=== PATIENT | male | born 1940 | race Asian ===

== ENCOUNTER 2017-02-25 20:10 | Emergency (ER) | payer MEDICARE, BC, OTHER ==
[2017-02-25] MEDS ORDERED: SODIUM CHLORIDE 0.9% 1,000 ML IV ONE (20:32)
--- NOTE | 2017-02-25 20:37 | ED Physician Documentation ---
PD HPI ABD PAIN - Stated complaint Stated Complaint: SIDE PX - Chief complaint Chief Complaint: Abd Pain - History obtained from History obtained from: Patient - History of Present Illness Timing - onset: Yesterday Timing - details: Gradual onset Quality: Dull Location: RLQ Associated symptoms: Constipation. No: Fever, Nausea, Vomiting, Diarrhea, Dysuria Similar symptoms before: Has not had sx before - Additional information Additional information: The patient is a 76-year-old male who presents with right-sided abdominal pain that started yesterday and has persisted today. He denies fever, nausea, vomiting, or dysuria. He has chronic constipation for which he takes senna and Dulcolax. His last bowel movement was yesterday. He ate breakfast and lunch today. He denies history of similar symptoms in the past. His past medical history is significant for prostate cancer that was diagnosed earlier this year, and for which he has undergone radiation therapy 2. The last time was about 2 weeks ago. He is also status post cholecystectomy. Review of Systems Constitutional: denies: Fever Ears: denies: Tinnitus/ringing Nose: denies: Congestion Throat: denies: Sore throat Cardiac: denies: Chest pain / pressure Respiratory: denies: Dyspnea, Cough GI: reports: Abdominal Pain, Constipation (Chronically). denies: Nausea, Vomiting, Diarrhea : denies: Dysuria Skin: denies: Rash Musculoskeletal: denies: Back pain, Extremity swelling Neurologic: denies: Focal weakness, Numbness, Headache PD PAST MEDICAL HISTORY - Past Medical History Cardiovascular: Hypertension, Atrial fibrillation Endocrine/Autoimmune: Type 2 diabetes GI: Chronic constipation Other Past Medical History: Prostate cancer, status post radiation therapy. - Past Surgical History Past Surgical History: Yes General: Cholecystectomy - Present Medications Home Medications: Ambulatory Orders Medication Instructions Recorded Confirmed Aspirin 81 mg PO DAILY 03/27/14 02/25/17 Atorvastatin Calcium [Lipitor] 20 mg PO DAILY 03/27/14 02/25/17 Lisinopril 20 mg PO DAILY 03/27/14 02/25/17 Omeprazole [PriLOSEC] 40 mg PO DAILY 03/27/14 02/25/17 Albuterol Sulf [Ventolin Hfa 2 puffs INH PRN PRN 02/25/17 02/25/17 Inhaler] Bisacodyl [Dulcolax] 5 mg PO DAILY 02/25/17 02/25/17 HYDROcod/ACETAM 5/325 [[place] 5/325] 1 - 2 ea PO Q6H PRN #15 tablet 02/25/17 Insulin Aspart (Vial) [NovoLOG 52 unit SUBQ BID 02/25/17 02/25/17 (VIAL FOR ED USE)] Senna [Senokot] 8.6 mg PO ONCE 02/25/17 02/25/17 - Allergies Allergies/Adverse Reactions: Allergies Allergy/AdvReac Type Severity Reaction Status Date / Time metformin AdvReac Cramps Verified 03/27/14 17:16 morphine AdvReac Nausea Verified 03/27/14 17:17 - Living Situation Living Situation: reports: With family Living Arrangement: reports: At home - Social History Does the pt smoke?: No Smoking Status: Never smoker Does the pt drink ETOH?: No - Immunizations Immunizations are current?: No Results - Vitals Vitals: Vital Signs - 24 hr 02/25/17 23:32 Heart Rate 81 Respiratory 18 Rate Blood Pressure 123/60 O2 Saturation 100 Oxygen O2 Source Room air - Labs Labs: Laboratory Tests 02/25/17 02/25/17 02/25/17 20:35 20:35 22:15 WBC 9.9 RBC 4.17 L Hgb 12.8 L Hct 36.9 L MCV 88.5 MCH 30.8 MCHC 34.8 RDW 13.3 Plt Count 242 MPV 7.0 L Neut # 7.3 H Lymph # 1.2 L Simpson # 1.2 H Eos # 0.2 Baso # 0.0 Absolute Nucleated RBC 0.00 Nucleated RBC % 0.0 Sodium 135 Potassium 4.2 Chloride 102 Carbon Dioxide 23 Anion Gap 10.0 BUN 35 H Creatinine 1.2 Estimated GFR (MDRD) 59 L Glucose 214 H Calcium 9.0 Total Bilirubin 0.8 AST 33 ALT 31 Alkaline Phosphatase 105 Total Protein 7.2 Albumin 4.0 Globulin 3.2 Albumin/Globulin Ratio 1.3 Lipase 31 Urine Color YELLOW Urine Clarity CLEAR Urine pH 5.5 Ur Specific [place] 1.020 Urine Protein NEGATIVE Urine Glucose (UA) 100 H Urine Ketones NEGATIVE Urine Occult Blood NEGATIVE Urine Nitrite NEGATIVE Urine Bilirubin NEGATIVE Urine Urobilinogen 0.2 (NORMAL) Ur Leukocyte Esterase NEGATIVE Ur Microscopic Review NOT INDICATED Urine Culture Comments NOT INDICATED - Rads (name of study) CT abd/pelvis w/IV contrast Radiology: Prelim report reviewed, EMP read contemporaneously, See rad report ( 1. 1. Suspect rectal prolapse, otherwise unremarkable bowel, with normal appendix noted. 2. Cholecystectomy. 3. Radioactive prostate seeds. 4. 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 He has chronic constipation, and I suspect his pain is related to constipation , and may be exacerbated by recent prostate radiation therapy. CT scan of his abdomen and pelvis reveals a normal appendix, and no evidence of bowel obstruction. His urinalysis is negative, and his CBC reveals a normal white count. Treatment in the emergency department included administration of normal saline 685 mL IV, hydromorphone 1 mg IV, and Reglan 10 mg IV. He is being discharged with prescription for Vicodin, 15 tablets. I discussed with him and his daughter the results of the workup, symptomatic treatment and outpatient follow- up, as well as potentially worrisome signs or symptoms that should prompt reevaluation in the emergency department. Departure - Departure Disposition: 01 Home, Self Care Clinical Impression: Prostate CA Abdominal pain Qualifiers: Abdominal location: right lower quadrant Qualified Code(s): R10.31 - Right lower quadrant pain Condition: Stable Instructions: ED Abdominal Pain Unkn Cause Male Follow-Up: [facility] [Provider Group] Prescriptions: HYDROcod/ACETAM 5/325 [[place] 5/325] 1 - 2 ea PO Q6H PRN #15 tablet PRN Reason: Pain Comments: Drink plenty of fluids. Eat fruits such as prunes, peaches, or apricots. You can use Vicodin as prescribed as needed for pain. Follow up with your primary physician tomorrow as scheduled. Return to the emergency department if you develop increasing abdominal pain, fever, vomiting, or otherwise worsening symptoms. Discharge Date/Time: 02/25/17 23:35
[2017-02-25 20:44] LABS: BASOPHILS % (AUTO) 0.2 %; EOSINOPHILS # (AUTO) 0.2 10^3/uL (0.0-0.7); EOSINOPHILS % (AUTO) 1.6 %; HCT - HEMATOCRIT 36.9 % (42.0-52.0); HGB - HEMOGLOBIN 12.8 g/dL (14.0-18.0); LYMPHOCYTES # (AUTO) 1.2 10^3/uL (1.5-3.5); LYMPHOCYTES % (AUTO) 11.8 %; MEAN CORPUSCULAR HEMOGLOBIN 30.8 pg (27.0-31.0); MEAN CORPUSCULAR HGB CONC 34.8 g/dL (32.0-36.0); MEAN CORPUSCULAR VOLUME 88.5 fL (80.0-94.0); MONOCYTES # (AUTO) 1.2 10^3/uL (0.0-1.0); MONOCYTES % (AUTO) 12.6 %; NEUTROPHILS # (AUTO) 7.3 10^3/uL (1.5-6.6); NEUTROPHILS % (AUTO) 73.8 %; RED BLOOD COUNT 4.17 10^6/uL (4.70-6.10); RED CELL DISTRIBUTION WIDTH 13.3 % (12.0-15.0); UNCORRECTED WHITE BLOOD COUNT 9.9 x10^3/uL; WHITE BLOOD COUNT 9.9 x10^3/uL (4.8-10.8)
[2017-02-25] MEDS ORDERED: HYDROmorphone 1 MG/ML SYRINGE ONE (20:48)
[2017-02-25 20:56] LABS: ALBUMIN/GLOBULIN RATIO 1.3 (1.0-2.2); BILIRUBIN,TOTAL 0.8 mg/dL (0.2-1.0); CREATININE 1.2 mg/dL (0.6-1.2); POTASSIUM 4.2 mmol/L (3.5-5.0); TOTAL PROTEIN 7.2 g/dL (6.7-8.2)
[2017-02-25] MEDS ORDERED: HYDROmorphone 0.5 MG/0.5 ML SYRINGE IVP SCH (21:00)
[2017-02-25] MEDS ORDERED: IOPAMIDOL-300 100 ML VIAL ONE (21:05)
[2017-02-25] MEDS ORDERED: IOPAMIDOL-300 100 ML VIAL IVP ONE (21:21)
--- NOTE | 2017-02-25 22:06 | CT Preliminary Report ---
Exam: CT ABDOMEN/PELVIS W/ IMPRESSION: 1. Suspect rectal prolapse, otherwise unremarkable bowel, with normal appendix noted. 2. Cholecystectomy. 3. Radioactive prostate seeds. 4. Chronic pars defects at L5, with degenerative disk disease, L3-L5. [facility] SITE ID: [id number]
--- NOTE | 2017-02-25 22:09 | CT Report ---
EXAM: CT ABDOMEN AND PELVIS EXAM DATE: 02/25/2017 09:36 PM. CLINICAL HISTORY: Right lower quadrant pain. COMPARISONS: None. TECHNIQUE: Routine helical CT imaging was performed through the abdomen and pelvis. IV contrast: 100 cc of Isovue-300. Enteric contrast: No. Reconstructions: Coronal and sagittal. In accordance with CT protocol optimization, one or more of the following dose reduction techniques w ere utilized for this exam: automated exposure control, adjustment of mA and/or KV based on patient s ize, or use of iterative reconstructive technique. FINDINGS: Lung Bases: Unremarkable. Liver: Normal. No masses. Gallbladder/Bile Ducts: Cholecystectomy. No dilated ducts. Spleen: Normal. Pancreas: Normal. Adrenal Glands: Normal. Kidneys: Anterior 1.9 cm cyst on the right, otherwise unremarkable. Peritoneal Cavity/Bowel: Normal. No free fluid, free air or adenopathy. No masses or acute inflammato ry process. The appendix is well visualized and normal. Pelvic Organs: Prostatic densities, presumably radioactive seeds. Unremarkable bladder. Suspect recta l prolapse. Vasculature: No aneurysms or other significant abnormality. Bones: Degenerative disk disease at L3-L4, L4-L5, and L5-S1. Chronic pars defects at L5. Other: None. IMPRESSION: 1. Suspect rectal prolapse, otherwise unremarkable bowel, with normal appendix noted. 2. Cholecystectomy. 3. Radioactive prostate seeds. 4. Chronic pars defects at L5, with degenerative disk disease, L3-L5. [facility] Referring Provider Line: [phone] SITE ID: [id number]
[2017-02-25] MEDS ORDERED: MINERAL OIL ENEMA 133 ML BOTTLE RC STA (22:22)
[2017-02-25 22:24] LABS: BILIRUBIN,URINE NEGATIVE (NEGATIVE); PH,URINE 5.5 PH (5.0-7.5)
[2017-02-25 22:26] LABS: UA CHARGE (STRIP ONLY) YES; UR CULTURE IF IND NOT INDICATED
[2017-02-25] MEDS ORDERED: METOCLOPRAMIDE 10 MG/2 ML VIAL IVP STA (23:19)
[2017-02-25] MEDS ORDERED: HYDROcod/ACET 5/325 Prepack 6 PO STA (23:23)
[2017-02-25] MEDS ORDERED: METOCLOPRAMIDE 10 MG/2 ML VIAL ONE (23:27)
[2017-02-25] MEDS ORDERED: HYDROcod/ACET 5/325 Prepack 6 PO ONE (23:32)
[2017-02-25 23:33] VITALS: BP 123/60
== END 2017-02-25 23:35 | disposition home or self-care (01) ==
LOC: ED 20:10
DX: C61 Malignant neoplasm of prostate (principal); R10.31 Right lower quadrant pain; I10 Essential (primary) hypertension; E11.9 Type 2 diabetes mellitus without complications; K59.09 Other constipation; Z92.3 Personal history of irradiation; Z79.82 Long term (current) use of aspirin; Z79.4 Long term (current) use of insulin
CPT/HCPCS: 36415; 74177; 80053; 81003; 83690; 85025; 96361; 96374; 96375; 99284; A9270; J1170; Q9967; 81001; 87086

== ENCOUNTER 2019-11-26 18:33 | Emergency (ER) | payer MEDICARE, BC, OTHER ==
--- NOTE | 2019-11-26 19:04 | ED Physician Documentation ---
History of Present Illness - Stated complaint Stated Complaint: EYE SWELLING, ITCHINESS - Chief complaint Chief Complaint: General - History obtained from History obtained from: Patient (Patient is a 78-year-old male presents with a chief complaint of left eye irritation after he colored his hair. He denies any visual loss or facial swelling or mouth swelling or difficulty breathing he did not try any treatment prior to arrival.) Review of Systems Constitutional: reports: Reviewed and negative Eyes: reports: Irritation Ears: reports: Reviewed and negative Nose: reports: Reviewed and negative Throat: reports: Reviewed and negative Cardiac: reports: Reviewed and negative Respiratory: reports: Reviewed and negative GI: reports: Reviewed and negative : reports: Reviewed and negative Skin: reports: Reviewed and negative Musculoskeletal: reports: Reviewed and negative Neurologic: reports: Reviewed and negative Psychiatric: reports: Reviewed and negative Endocrine: reports: Reviewed and negative Immunocompromised: reports: Reviewed and negative PD PAST MEDICAL HISTORY - Past Medical History Cardiovascular: Hypertension, Atrial fibrillation Respiratory: Asthma Endocrine/Autoimmune: Type 2 diabetes GI: Chronic constipation : Other HEENT: None Psych: None Musculoskeletal: Osteoarthritis Derm: None - Past Surgical History Past Surgical History: Yes General: Cholecystectomy - Present Medications Home Medications: Ambulatory Orders Medication Instructions Recorded Confirmed Aspirin 81 mg PO DAILY 03/27/14 02/25/17 Atorvastatin Calcium [Lipitor] 20 mg PO DAILY 03/27/14 02/25/17 Lisinopril 20 mg PO DAILY 03/27/14 02/25/17 Omeprazole [PriLOSEC] 40 mg PO DAILY 03/27/14 02/25/17 Albuterol Sulf [Ventolin Hfa 2 puffs INH PRN PRN 02/25/17 02/25/17 Inhaler] HYDROcod/ACETAM 5/325 [[place] 5/325] 1 - 2 ea PO Q6H PRN #15 tablet 02/25/17 Insulin Aspart (Vial) [NovoLOG 52 unit SUBQ BID 02/25/17 02/25/17 (VIAL FOR ED USE)] Senna [Senokot] 8.6 mg PO ONCE 02/25/17 02/25/17 bisacodyL [Dulcolax] 5 mg PO DAILY 02/25/17 02/25/17 Erythromycin Base [Erythromycin 1 gm OP BID 7 Days #1 oint...g. 11/26/19 Ophthalmic Ointment] - Allergies Allergies/Adverse Reactions: Allergies Allergy/AdvReac Type Severity Reaction Status Date / Time metformin AdvReac Cramps Verified 11/26/19 18:52 morphine AdvReac Nausea Verified 11/26/19 18:52 - Social History Does the pt smoke?: No Smoking Status: Never smoker Does the pt drink ETOH?: No Does the pt have substance abuse?: No - Immunizations Immunizations are current?: No PD ED PE NORMAL - Vitals Vital signs reviewed: Yes - General General: Alert and oriented X 3, No acute distress - HEENT HEENT: PERRL, EOMI, Moist mucous membranes, Pharynx benign, Other (The left eye shows mild conjunctival irritation there is no discharge there is no swelling around the eye no foreign bodies noted no fluorescein uptake.) - Neck Neck: Supple, no meningeal sign - Cardiac Cardiac: RRR, No murmur - Respiratory Respiratory: Clear bilaterally - Abdomen Abdomen: Normal bowel sounds, Soft, Non tender, Non distended - Derm Derm: Warm and dry - Extremities Extremities: No deformity - Neuro Neuro: Alert and oriented X 3 - Psych Psych: Normal mood, Normal affect Results - Vitals Vitals: Vital Signs - 24 hr 11/26/19 18:45 Temperature 36.8 C Heart Rate 95 Respiratory 14 Rate Blood Pressure 129/77 O2 Saturation 100 Oxygen O2 Source Room air PD MEDICAL DECISION MAKING - ED course Complexity details: re-evaluated patient, considered differential (Mild chemical conjunctivitis will treat with erythromycin Ophthalmic ointment.Encourage this patient to follow-up with his primary care provider tomorrow and also follow-up with an eye doctor either an nuclear physics professor or senior talent management consultant tomorrow for reevaluation.), d/w patient Departure - Departure Disposition: 01 Home, Self Care Clinical Impression: Conjunctivitis Qualifiers: Conjunctivitis type: unspecified Laterality: left Qualified Code(s): H10.9 - Unspecified conjunctivitis Condition: Stable Instructions: ED Chemical Conjunctivitis Follow-Up: your, doctor [Other] Prescriptions: Erythromycin Base [Erythromycin Ophthalmic Ointment] 1 gm OP BID 7 Days #1 oint...g. Comments: follow up with any eye doctor tomorrow. use erythromycin ointment as directed. discontinue hair coloring. follow up with your primary care doctor this week.
[2019-11-26] MEDS ORDERED: ERYTHROMYCIN OPHTH OINT 1 GM TUBE LEFTEYE STA (19:10)
[2019-11-26] MEDS ORDERED: CETIRIZINE 10 MG TABLET PO STA (19:11)
[2019-11-26 20:09] VITALS: BP 130/88
== END 2019-11-26 20:09 | disposition home or self-care (01) ==
LOC: ED 18:33
DX: T49.4X1A Poisoning by keratolytics, keratoplastics, and other hair treatment drugs and preparations, accidental (unintentional), initial encounter (principal); H10.212 Acute toxic conjunctivitis, left eye; I10 Essential (primary) hypertension; E11.9 Type 2 diabetes mellitus without complications; Z79.4 Long term (current) use of insulin; Z79.82 Long term (current) use of aspirin
CPT/HCPCS: 99282; 99283; A9270; J3490

== ENCOUNTER 2019-11-28 09:56 | Emergency (ER) | payer MEDICARE, BC, OTHER ==
[2019-11-28 10:13] VITALS: BP 146/75
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
== END 2019-11-28 12:41 | disposition home or self-care (01) ==
LOC: ED 09:56
DX: T65.91XA Toxic effect of unspecified substance, accidental (unintentional), initial encounter (principal); T20.46XA Corrosion of unspecified degree of forehead and cheek, initial encounter; B95.8 Unspecified staphylococcus as the cause of diseases classified elsewhere; Y93.89 Activity, other specified; Y92.59 Other trade areas as the place of occurrence of the external cause; I10 Essential (primary) hypertension; E11.9 Type 2 diabetes mellitus without complications; Z79.4 Long term (current) use of insulin
CPT/HCPCS: 99282; 99284

== ENCOUNTER 2020-06-05 17:44 | Inpatient (IN) | payer MEDICARE, BC, OTHER ==
[2020-06-05] MEDS ORDERED: HYDROmorphone 1 MG/ML CARPUJECT IVP STA (18:28)
[2020-06-05] MEDS ORDERED: ONDANSETRON 4 MG/2 ML VIAL IVP STA (18:29)
--- NOTE | 2020-06-05 18:30 | ED Physician Documentation ---
PD HPI ABD PAIN - Stated complaint Stated Complaint: ABD PAIN, FEVERS - Chief complaint Chief Complaint: Abd Pain - History obtained from History obtained from: Patient - Additional information Additional information: 79-year-old gentleman with history of remote colon cancer status post resection presents with on and off central and right-sided abdominal pain all week. Today it is severe. Note made although he denied nausea to me, he did report nausea to the nurse. With vomiting or diarrhea. He states his bowel movements are normal. No fevers. He is a diabetic and does take insulin. Review of Systems Ten Systems: 10 systems reviewed and negative Constitutional: reports: Reviewed and negative Nose: reports: Reviewed and negative Throat: reports: Reviewed and negative Cardiac: reports: Reviewed and negative Respiratory: reports: Reviewed and negative PD PAST MEDICAL HISTORY - Past Medical History Cardiovascular: Hypertension, Atrial fibrillation Respiratory: Asthma Endocrine/Autoimmune: Type 2 diabetes GI: Chronic constipation : Other HEENT: None Psych: None Musculoskeletal: Osteoarthritis Derm: None - Past Surgical History Past Surgical History: Yes General: Cholecystectomy - Present Medications Home Medications: Ambulatory Orders Medication Instructions Recorded Confirmed Aspirin 81 mg PO DAILY 03/27/14 02/25/17 Atorvastatin Calcium [Lipitor] 20 mg PO DAILY 03/27/14 02/25/17 Lisinopril 20 mg PO DAILY 03/27/14 02/25/17 Omeprazole [PriLOSEC] 40 mg PO DAILY 03/27/14 02/25/17 Albuterol Sulf [Ventolin Hfa 2 puffs INH PRN PRN 02/25/17 02/25/17 Inhaler] HYDROcod/ACETAM 5/325 [[place] 5/325] 1 - 2 ea PO Q6H PRN #15 tablet 02/25/17 Insulin Aspart (Vial) [NovoLOG 52 unit SUBQ BID 02/25/17 02/25/17 (VIAL FOR ED USE)] Senna [Senokot] 8.6 mg PO ONCE 02/25/17 02/25/17 bisacodyL [Dulcolax] 5 mg PO DAILY 02/25/17 02/25/17 Erythromycin Base [Erythromycin 1 gm OP BID 7 Days #1 oint...g. 11/26/19 Ophthalmic Ointment] cephALEXin [Keflex] 500 mg PO Q6H #28 capsule 11/28/19 predniSONE [Prednisone] 20 mg PO DAILY #5 tablet 11/28/19 - Allergies Allergies/Adverse Reactions: Allergies Allergy/AdvReac Type Severity Reaction Status Date / Time metformin AdvReac Cramps Verified 06/05/20 18:05 morphine AdvReac Nausea Verified 06/05/20 18:05 - Social History Does the pt smoke?: No Smoking Status: Never smoker Does the pt drink ETOH?: No Does the pt have substance abuse?: No - Immunizations Immunizations are current?: No - POLST Patient has POLST: No PD ED PE NORMAL - Vitals Vital signs reviewed: Yes - General General: Alert and oriented X 3, No acute distress - HEENT HEENT: PERRL, EOMI - Neck Neck: Supple, no meningeal sign, No bony TTP - Cardiac Cardiac: RRR, No murmur - Respiratory Respiratory: No respiratory distress, Clear bilaterally - Abdomen Abdomen: Other (Mild central and right-sided abdominal tenderness without surgical signs, normal bowel tones.) - Back Back: No CVA TTP, No spinal TTP - Derm Derm: Normal color, Warm and dry - Extremities Extremities: No edema, No calf tenderness / cord - Neuro Neuro: Alert and oriented X 3, Normal speech Results - Vitals Vitals: Vital Signs - 24 hr 06/05/20 06/05/20 18:00 20:05 Temperature 36.1 C L 36.4 C L Heart Rate 91 86 Respiratory 17 20 Rate Blood Pressure 117/65 154/77 H O2 Saturation 96 92 Oxygen O2 Source Room air - Labs Labs: Laboratory Tests 06/05/20 06/05/20 06/05/20 19:16 19:16 20:30 WBC 5.2 RBC 4.64 L Hgb 13.2 L Hct 40.1 L MCV 86.4 MCH 28.4 MCHC 32.9 RDW 12.6 Plt Count 159 MPV 9.2 Neut # (Auto) 4.0 Lymph # (Auto) 0.6 L Slope # (Auto) 0.6 Eos # (Auto) 0.0 Baso # (Auto) 0.0 Absolute Nucleated RBC 0.00 Nucleated RBC % 0.0 Sodium 132 L Potassium 3.9 Chloride 93 L Carbon Dioxide 26 Anion Gap 13.0 BUN 26 H Creatinine 1.1 Estimated GFR (MDRD) 65 L Glucose 276 H Calcium 8.6 Total Bilirubin 0.9 AST 32 ALT 28 Alkaline Phosphatase 86 Total Protein 7.0 Albumin 3.5 Globulin 3.5 Albumin/Globulin Ratio 1.0 Lipase 32 Urine Color YELLOW Urine Clarity HAZY Urine pH 5.5 Ur Specific [place] 1.010 Urine Protein 30 H Urine Glucose (UA) 250 H Urine Ketones 15 H Urine Occult Blood SMALL H Urine Nitrite NEGATIVE Urine Bilirubin NEGATIVE Urine Urobilinogen 0.2 (NORMAL) Ur Leukocyte Esterase NEGATIVE Urine RBC 0-5 Urine WBC 0-3 Ur Squamous Epith Cells RARE Squamous Urine Bacteria Rare Urine Mucus Few Strands Ur Microscopic Review INDICATED Urine Culture Comments NOT INDICATED Nasal Adenovirus (PCR) Nasal B. parapertussis DNA (PCR) Nasal Coronavir 229E PCR Nasal Coronavir HKU1 PCR Nasal Coronavir NL63 PCR Nasal Coronavir OC43 PCR Nasal Enterovir/Rhinovir PCR Nasal Influenza B PCR Nasal Influenza A PCR Nasal Parainfluen 1 PCR Nasal Parainfluen 2 PCR Nasal Parainfluen 3 PCR Nasal Parainfluen 4 PCR Nasal RSV (PCR) Nasal B.pertussis DNA PCR Nasal C.pneumoniae (PCR) Dre Human Metapneumo PCR Nasal M.pneumoniae (PCR) Nasal SARS-CoV-2 (PCR) 06/05/20 20:59 WBC RBC Hgb Hct MCV MCH MCHC RDW Plt Count MPV Neut # (Auto) Lymph # (Auto) Slope # (Auto) Eos # (Auto) Baso # (Auto) Absolute Nucleated RBC Nucleated RBC % Sodium Potassium Chloride Carbon Dioxide Anion Gap BUN Creatinine Estimated GFR (MDRD) Glucose Calcium Total Bilirubin AST ALT Alkaline Phosphatase Total Protein Albumin Globulin Albumin/Globulin Ratio Lipase Urine Color Urine Clarity Urine pH Ur Specific [place] Urine Protein Urine Glucose (UA) Urine Ketones Urine Occult Blood Urine Nitrite Urine Bilirubin Urine Urobilinogen Ur Leukocyte Esterase Urine RBC Urine WBC Ur Squamous Epith Cells Urine Bacteria Urine Mucus Ur Microscopic Review Urine Culture Comments Nasal Adenovirus (PCR) NOT DETECTED Nasal B. parapertussis DNA (PCR) NOT DETECTED Nasal Coronavir 229E PCR NOT DETECTED Nasal Coronavir HKU1 PCR NOT DETECTED Nasal Coronavir NL63 PCR NOT DETECTED Nasal Coronavir OC43 PCR NOT DETECTED Nasal Enterovir/Rhinovir PCR NOT DETECTED Nasal Influenza B PCR NOT DETECTED Nasal Influenza A PCR NOT DETECTED Nasal Parainfluen 1 PCR NOT DETECTED Nasal Parainfluen 2 PCR NOT DETECTED Nasal Parainfluen 3 PCR NOT DETECTED Nasal Parainfluen 4 PCR NOT DETECTED Nasal RSV (PCR) NOT DETECTED Nasal B.pertussis DNA PCR NOT DETECTED Nasal C.pneumoniae (PCR) NOT DETECTED Dre Human Metapneumo PCR NOT DETECTED Nasal M.pneumoniae (PCR) NOT DETECTED Nasal SARS-CoV-2 (PCR) DETECTED A PD MEDICAL DECISION MAKING - ED course ED course: 79-year-old gentleman presents with diffuse abdominal pains, complaints of potential nausea. Comorbidities include diabetic on insulin, A. fib and age. He is a fairly benign abdominal exam and CT of the abdomen and pelvis with IV contrast interpreted contemporaneously by me shows patchy groundglass opacities with septal thickening in the lung bases concerning for atypical pneumonia, potentially COVID-19, no other definite acute intra-abdominal pathology, there is a small exophytic nodule along the left kidney needing nonemergent follow-up. At that point did the results were discussed with the patient we will go ahead and perform a Covid test because if he does have Covid he would be a candidate for bamlanivimab. 79-year-old gentleman with diabetes presents with abdominal pain and some other vague complaints. He has a low normal white count with lymphopenia and groundglass opacities at the base of his abdominal CT. This was concerning for COVID-19 which he certainly came positive for. I called the pharmacist to inquire about bamlanivimab, they do not do that at night so we were thinking about either sending him home or boarding him in the emergency department since he does fit hikers criteria for same at which point I was notified by the nurse that he had developed an oxygen requirement and as such we will go ahead and admit him for remdesivir and Decadron therapy. Departure - Departure Disposition: 66 [facility] DC/Xfer Clinical Impression: COVID-19, Hypoxemia Abdominal pain Qualifiers: Abdominal location: generalized Qualified Code(s): R10.84 - Generalized abdominal pain Condition: Serious Comments: You did have a cyst on your left kidney, this will need to be follow-up by your primary care physician for a nonurgent ultrasound.
[2020-06-05] MEDS ORDERED: IOVERSOL 320 100 ML VIAL IVP ONE ×2 (19:04→20:02)
[2020-06-05 19:23] LABS: BASOPHILS % (AUTO) 0.2 %; HGB - HEMOGLOBIN 13.2 g/dL (14.0-18.0); LYMPHOCYTES # (AUTO) 0.6 10^3/uL (1.5-3.5); LYMPHOCYTES % (AUTO) 12.4 %; MEAN CORPUSCULAR HEMOGLOBIN 28.4 pg (27.0-31.0); MEAN CORPUSCULAR HGB CONC 32.9 g/dL (32.0-36.0); MEAN CORPUSCULAR VOLUME 86.4 fL (80.0-94.0); MEAN PLATELET VOLUME 9.2 fL (7.4-11.4); MONOCYTES # (AUTO) 0.6 10^3/uL (0.0-1.0); MONOCYTES % (AUTO) 10.8 %; NEUTROPHILS % (AUTO) 76.2 %; PLT - PLATELET COUNT 159 10^3/uL (130-450); RED BLOOD COUNT 4.64 10^6/uL (4.70-6.10); RED CELL DISTRIBUTION WIDTH 12.6 % (12.0-15.0); WHITE BLOOD COUNT 5.2 x10^3/uL (4.8-10.8)
[2020-06-05 19:34] LABS: ALBUMIN 3.5 g/dL (3.2-5.5); BILIRUBIN,TOTAL 0.9 mg/dL (0.2-1.0); CALCIUM 8.6 mg/dL (8.5-10.3); CREATININE 1.1 mg/dL (0.6-1.2)
[2020-06-05 20:42] LABS: BILIRUBIN,URINE NEGATIVE (NEGATIVE); GLUCOSE, URINE (UA) 250 mg/dL (NEGATIVE); KETONES,URINE (UA) 15 mg/dL (NEGATIVE); LEUKOCYTE ESTERASE, URINE NEGATIVE (NEGATIVE); NITRITE,URINE NEGATIVE (NEGATIVE); OCCULT BLOOD,URINE SMALL (NEGATIVE); PH,URINE 5.5 PH (5.0-7.5); PROTEIN,URINE 30 mg/dL (NEGATIVE); UROBILINOGEN,URINE 0.2 (NORMAL) E.U./dL (NORMAL)
--- NOTE | 2020-06-05 20:42 | CT Report ---
PROCEDURE: Abdomen/Pelvis W INDICATIONS: Abdominal pain. CONTRAST: IV CONTRAST: Optiray 320 ml: 100 PO CONTRAST: *NO PO CONTRAST TECHNIQUE: After the administration of intravenous contrast, 5 mm thick sections acquired from the diaphragms to the symphysis. 5 mm thick coronal and sagittal reformats were acquired. For radiation dose reducti on, the following was used: automated exposure control, adjustment of mA and/or kV according to triston ent size. COMPARISON: CT abdomen pelvis 02/25/2017. FINDINGS: Image quality: Excellent. ABDOMEN: Lung bases: There are bilateral patchy areas of groundglass opacity with septal thickening demonstra emily in the lung bases with a basilar lower lobe predominance. Dependent atelectasis is also demonstra emily bilaterally. Heart size is normal. Solid organs: Evaluation of the liver demonstrates no focal hepatic lesions. Gallbladder is surgical ly absent. Biliary system is mildly dilated, likely reflecting sequelae of prior cholecystectomy. The spleen is normal in size. Pancreas enhances normally without peripancreatic fat stranding or fluid c ollections. No adrenal nodules. Kidneys demonstrate no hydronephrosis. There is a small exophytic n odule along the lateral aspect of the left kidney measuring up to 0.7 cm which is incompletely charac terized. This appears slightly increased in prominence compared to the prior study, now measuring up to 0.9 cm compared to 0.7 cm previously. A right renal cyst is also redemonstrated. Peritoneum and bowel: Bowel loops demonstrate normal wall thickness and caliber. There is colonic d iverticulosis without acute diverticulitis. No free fluid or air. Nodes and vessels: No retroperitoneal or mesenteric adenopathy by size criteria. Aorta and inferior vena cava are normal in size. Miscellaneous: No ventral hernias. PELVIS: Genitourinary: Bladder wall thickness is normal. Miscellaneous: Suspected rectal prolapse is redemonstrated. No inguinal hernias or adenopathy. Bones: No suspicious bony lesions. No vertebral body compression fractures. IMPRESSION: 1. Patchy groundglass opacities with septal thickening demonstrated in the lung bases. The findings m ost likely represent atypical pneumonia, with a pattern suggestive of Covid 19. 2. No definite acute intra-abdominal abnormality. 3. Small exophytic nodule along the left kidney is incompletely characterized. The findings are sligh tly increased in size compared to the prior study and a differential includes a small solid neoplasm as well as a hyperdense cyst. Consider a follow-up nonemergent renal ultrasound for further evaluatio n. Reviewed by: Desmond Ceja MD on 06/05/2020 8:41 PM PST Approved by: Desmond Ceja MD on 06/05/2020 8:41 PM PST Station ID: [id number]
[2020-06-05 20:43] LABS: CLARITY,URINE HAZY (CLEAR)
[2020-06-05 21:02] LABS: BACTERIA,URINE Rare /HPF (None Seen); MUCUS,URINE Few Strands; RBC,URINE 0-5 /HPF (0-5); SQUAMOUS EPITHELIAL CELL,UR RARE Squamous (<= Few)
[2020-06-05 22:00] LABS: C. PNEUMONIAE- RESP PCR PANEL NOT DETECTED
[2020-06-05] MEDS ORDERED: DEXAMETHASONE 10 MG/ML VIAL IVP STA (22:16)
[2020-06-05] MEDS ORDERED: SODIUM CHLORIDE FLUSH 0.9% 10 ML SYRINGE IVP PRN (22:38)
[2020-06-05] MEDS ORDERED: ONDANSETRON 4 MG/2 ML VIAL IVP PRN (22:51)
[2020-06-05] MEDS ORDERED: ONDANSETRON ODT 4 MG TABLET TL PRN (22:51)
[2020-06-05] MEDS ORDERED: oxyCODONE 5 MG TABLET PO PRN (22:51)
--- NOTE | 2020-06-06 00:21 | HISTORY & PHYSICAL EXAMINATION ---
Chief Complaint - Chief Complaint Chief Complaint: Abdominal pain History of Present Illness - Admitted From Admitted From:: home - History Obtained From Records Reviewed: [facility] History obtained from: Dr. Bermeo Exam Limitations: none - History of Present Illness HPI Comment/Other: 79-year-old male who presented to our emergency room with abdominal pain. He has a history of colon cancer many years ago that was resected. The abdominal pain is off to the right side of his abdomen and central. Is been going on for a few days but today it was really bad. No emesis. No diarrhea. No change in bowel movements. No blood in stool. He denies fever, chills. In the emergency room his temperature was 36.1. Heart rate 91. Respirations 17. Blood pressure 117/65 and he was 96% saturated on room air. He was alert and oriented. Had mild central and right-sided abdominal tenderness without surgical signs. No peritoneal findings. Normal bowel sounds. White cell count was 5.2. Hemoglobin 13.2. Sodium was mildly decreased at 132. Glucose was elevated at 276 in a gentleman who is a diabetic. And evaluation for his abdominal pain he had a CT of the abdomen and pelvis. The CT of the abdomen and pelvis was negative for any abdominal pathology but he had groundglass opacities with septal thickening in the lung bases concerning for atypical pneumonia. COVID-19 was then done and he is positive. Of note, this patient is asymptomatic for COVID-19 pneumonia. He was being evaluated for possible outp atient treatment of this. He was getting get bamlanivimab and sent home. However while in the emergency room he dropped his O2 sats to 88% on room air. He will now be admitted for Covid pneumonia. On review of systems he admits to having a cough now for 2 weeks. He has had a little bit of fever and chills but no sore throat. His appetite has been okay, he can smell things okay. His is been sick with him and she was tested for Covid and she was negative. Right now, while he is coughing, he feels that his main complaint is left-sided abdominal pain not the Covid pneumonia. History - Past Medical History Cardiovascular: reports: Hypertension, Atrial fibrillation Respiratory: reports: Asthma Endocrine/Autoimmune: reports: Type 2 diabetes GI: reports: Chronic constipation, Other (colon cancer Years ago) HEENT: reports: None Psych: reports: None Musculoskeletal: reports: Osteoarthritis Derm: reports: None MRSA Hx?: No - Past Surgical History General: reports: Cholecystectomy, Bowel surgery HEENT: reports: Cataracts, Other (Laser surgery for his eyes) - Family & Social History Family History Comment/Other: Parents of old age. He does not remember them having any diabetes, cancer, heart attack. 5 brothers and sisters. Some have diabetes. No cancer or heart attack. A son and a daughter. One with diabetes. Living arrangement: At home Living Situation: With spouse/s.o. Social History Notes: He is from [facility]. Served in the [employer]. 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 He says he never smoked, rarely drank. Had no problems with alcohol abuse. Has no history of recreational substance abuse.And serving with the [employer] he says that he was exposed to agent orange. to his first . She is [place]. - Substance History Use: Uses substance without health or social issues: NONE Abuse: Recurrent use of substance despite neg consequences: NONE Dependence: Experiences withdrawal or developed tolerances: NONE - POLST Patient has POLST: No POLST Status: Full Code Meds/Allgy - Home Medications Home Medications: Ambulatory Orders Medication Instructions Recorded Confirmed Aspirin 81 mg PO DAILY 03/27/14 02/25/17 Atorvastatin Calcium [Lipitor] 20 mg PO DAILY 03/27/14 02/25/17 Lisinopril 20 mg PO DAILY 03/27/14 02/25/17 Omeprazole [PriLOSEC] 40 mg PO DAILY 03/27/14 02/25/17 Albuterol Sulf [Ventolin Hfa 2 puffs INH PRN PRN 02/25/17 02/25/17 Inhaler] HYDROcod/ACETAM 5/325 [[place] 5/325] 1 - 2 ea PO Q6H PRN #15 tablet 02/25/17 Insulin Aspart (Vial) [NovoLOG 52 unit SUBQ BID 02/25/17 02/25/17 (VIAL FOR ED USE)] Senna [Senokot] 8.6 mg PO ONCE 02/25/17 02/25/17 bisacodyL [Dulcolax] 5 mg PO DAILY 02/25/17 02/25/17 Erythromycin Base [Erythromycin 1 gm OP BID 7 Days #1 oint...g. 11/26/19 Ophthalmic Ointment] cephALEXin [Keflex] 500 mg PO Q6H #28 capsule 11/28/19 predniSONE [Prednisone] 20 mg PO DAILY #5 tablet 11/28/19 - Allergies Allergies/Adverse Reactions: Allergies Allergy/AdvReac Type Severity Reaction Status Date / Time metformin AdvReac Cramps Verified 06/05/20 18:05 morphine AdvReac Nausea Verified 06/05/20 18:05 Review of Systems - Constitutional Constitutional: reports: Fatigue, Fever, Malaise - Eyes Eyes: denies: Pain, Irritation, Amaurosis, Blurred vision - Ears, Nose & Throat Ears, Nose & Throat: reports: Hearing loss, Nasal discharge. denies: Ear pain, Hearing aids, Tinnitus, Vertigo, Nasal obstruction, Nasal congestion - Cardiovascular Cariovascular: denies: Irregular heart rate, Palpitations, Chest pain, Edema, Lightheadedness, Syncope, Exertional dyspnea, Decr. exercise tolerance - Respiratory Respiratory: reports: Cough. denies: Sputum production, Wheezing, Snoring, Hemoptysis, Orthopnea, SOB at rest, SOB with exertion - Gastrointestinal Gastrointestinal: reports: Abdominal pain, Abdominal distention, Constipation. denies: Diarrhea, Change in bowel habits, Rectal bleeding, Black stools, Bloody stools, Nausea, Vomiting, Coffee grounds emesis - Genitourinary Genitourinary: denies: Dysuria, Frequency, Urgency, Hematuria, Incontinence, Flank pain - Musculoskeletal Musculoskeletal: reports: Stiffness, Joint pain (All the time. Arthritis is the pain of his existence). 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 He denies use of durable medical equipment Exam - Vital Signs Reviewed Vital Signs: Yes Vital Signs: Vital Signs x48h Temp Pulse Resp BP Pulse Ox 06/05/20 22:00 36.8 C 88 18 156/86 H 100 06/05/20 20:05 36.4 C L 86 20 154/77 H 92 06/05/20 18:00 36.1 C L 91 17 117/65 96 - Physical Exam General Appearance: positive: No acute distress, Alert, Other (5 foot 3 inch male who 77 kg. Alert, oriented, comfortable with the mildly nasal tone of voice) Eyes Bilateral: positive: PERRL, EOMI, Other (Pterygium medially) ENT: positive: Other (Congested anterior pharyngeal folds. But no exudate or redness. Rhinorrhea. Nasal tone of voice.) Neck: positive: No JVD. negative: Lymphadenopathy (R), Lymphadenopathy (L), Stiff neck Respiratory: positive: No respiratory distress. negative: Wheezes, Rales, Rhonchi Cardiovascular: positive: Regular rate & rhythm. negative: Systolic murmur, Gallop/S4, Friction rub Peripheral Pulses: positive: 1+ Abdomen: positive: Tenderness (Left upper quadrant, left mid abdomen. Central belly. Winces and furrows his brow when I palpate but there is no rebound, guarding. Hypoactive bowel sounds. No masses palpable.) Skin: positive: Warm, Dry Extremities: positive: Non-tender, Full ROM, No pedal edema Neurologic/Psychiatric: positive: Oriented x3, CN's nml (2-12), Motor nml (He sat himself up in the ER [facility], transferred to a standing position, walked over to the bed in the room and made himself comfortable in bed.) Conclusion/Plan - Problem List (1) COVID-19 Conclusion/Plan: Pneumonia and hypoxemia. He would have been a candidate for monoclonal antibody and being sent home until his O2 sats dropped to 88%. Plan: Inpatient admission Nasal cannula oxygen to keep O2 sats above 92% Decadron 6 mg daily Unfortunately that will most likely affect his glucose Lovenox 40 mg subcu daily Remdesivir daily for 5 days (2) Hypoxemia Conclusion/Plan: Mild at this time. We will continue to monitor with pulse oximetry. Increase his oxygen as needed. (3) Type 2 diabetes mellitus Conclusion/Plan: On NovoLog and the report is 52 units subcu twice daily. Will use a combination of Lantus and short acting AC 3 times daily. Check A1c. Qualifiers: Diabetes mellitus group home insulin use: with supervisor intermediates use Diabetes mellitus complication status: with ophthalmic complications Diabetes mellitus complication detail: with diabetic retinopathy Diabetic retinopathy severity: with unspecified retinopathy severity Diabetes mellitus macular edema: without macular edema Laterality: bilateral Qualified Code(s): E11.319 - Type 2 diabetes mellitus with unspecified diabetic retinopathy without macular edema; Z79.4 - USP (current) use of insulin (4) Hypertension Conclusion/Plan: In a diabetic, he is on an JOSHUA inhibitor. Will resume lisinopril. Qualifiers: Hypertension type: essential hypertension Qualified Code(s): I10 - Essential (primary) hypertension - Lab Results Lab results reviewed: Yes Fish Bones: 06/05/20 19:16 06/05/20 19:16 - Diagnostic Imaging Results Diagnostic Imaging Results: positive: Final report reviewed Diagnostic Imaging Results Comments: Abdomen pelvis CT has a gallbladder that is absent, kidneys without nephrosis, bowel loops with normal wall thickness and caliber. Colonic diverticulosis without diverticulitis. No free air. Bilateral patchy areas of groundglass opacity with septal thickening demonstrated in the lung bases with basilar lower lobe predominance. Core Measures - Anticipated LOS I expect patient to be DC'd or transferred within 96 hours.: Yes - DVT/VTE - Prophylaxis VTE/DVT Device ordered at admit?: Yes
[2020-06-06] MEDS: LACTATED RINGERS 1,000 ML IV SCH ×2 (02:05→14:31)
[2020-06-06] MEDS: SODIUM CHLORIDE FLUSH 0.9% 10 ML SYRINGE IVP SCH ×3 (02:05→17:04)
--- NOTE | 2020-06-06 07:11 | PROVIDER PROGRESS NOTE ---
Subjective - Prog Note Date Prog Note Date: 06/06/20 Prog Note Time: 07:07 - Subjective Subjective: Night he has had no real changes. Continues to have the same dry nonproductive cough. Temperature was 36.4 on admission and is come up to 37 1. But blood pressure stable. Is 97% saturated on 2 L nasal cannula. We are awaiting pharmacy's approval of the remdesivir. Had sweats and chills overnight. Current Medications - Current Medications Current Medications: Active Medications Acetaminophen (Acetaminophen 325 Mg Tablet) 650 mg PO Q4HR PRN PRN Reason: Pain 1 to 4 Dexamethasone (Dexamethasone 4 Mg/Ml Vial) 6 mg IVP DAILY [facility] Enoxaparin Sodium (Enoxaparin 40 Mg/0.4 Ml Syringe) 40 mg SUBQ DAILY [facility] Lactated Ringer's (Lr) 1,000 mls @ 85 mls/hr IV .[id number] [facility] Stop: 06/07/20 10:17 Last Admin: 06/06/20 02:05 Dose: 85 mls/hr Documented by: Remdesivir 200 mg/ Sodium (Chloride) 210 mls @ 200 mls/hr IV ONCE [facility] Stop: 06/07/20 07:59 Insulin Aspart (Insulin Aspart 300 Unit/3 Ml Pen) 2 - 10 unit SUBQ 0800,1200,1700,2100 [facility]; Protocol Insulin Glargine (Insulin Glargine 300 Unit/3 Ml Pen) 5 unit SUBQ QDBREAKFAST [facility] Insulin Glargine (Insulin Glargine 300 Unit/3 Ml Pen) 10 unit SUBQ QPM [facility] Lisinopril (Lisinopril 20 Mg Tablet) 20 mg PO DAILY [facility] Ondansetron HCl (Ondansetron Odt 4 Mg Tablet) 4 mg TL Q6HR PRN PRN Reason: Nausea / Vomiting Ondansetron HCl (Ondansetron 4 Mg/2 Ml Vial) 4 mg IVP Q6HR PRN PRN Reason: Nausea / Vomiting Oxycodone HCl (Oxycodone 5 Mg Tablet) 5 mg PO Q4HR PRN PRN Reason: Pain 5 to 7 Sodium Chloride (Sodium Chloride Flush 0.9% 10 Ml Syringe) 10 ml IVP PRN PRN PRN Reason: NEEDED PER PROVIDER ORDERS Sodium Chloride (Sodium Chloride Flush 0.9% 10 Ml Syringe) 10 ml IVP 0100,0900,1700 [facility] Last Admin: 06/06/20 02:05 Dose: 10 ml Documented by: Aspirin 81 mg PO DAILY 03/27/14 Atorvastatin Calcium [Lipitor] 20 mg PO DAILY 03/27/14 Lisinopril 20 mg PO DAILY 03/27/14 Omeprazole [PriLOSEC] 40 mg PO DAILY 03/27/14 Albuterol Sulf [Ventolin Hfa Inhaler] 2 puffs INH PRN PRN 02/25/17 Insulin Aspart (Vial) [NovoLOG (VIAL FOR ED USE)] 52 unit SUBQ BID 02/25/17 Senna [Senokot] 8.6 mg PO ONCE 02/25/17 bisacodyL [Dulcolax] 5 mg PO DAILY 02/25/17 Objective - Vital Signs/Intake & Output Reviewed Vital Signs: Yes Vital Signs: Vital Signs x48h Temp Pulse Pulse Resp BP BP Pulse Ox 06/06/20 01:22 37.1 C 97 06/06/20 01:18 79 24 148/70 H 06/06/20 00:00 36.9 C 82 18 144/77 H 99 - Objective General Appearance: positive: No acute distress, Alert Eyes Bilateral: positive: PERRL, EOMI ENT: positive: No signs of dehydration Neck: positive: No JVD. negative: Stiff neck Respiratory: positive: No respiratory distress. negative: Wheezes, Rales, Rhonchi Cardiovascular: positive: Regular rate & rhythm. negative: Gallop/S4, Friction rub Abdomen: positive: Tenderness (Left mid abdomen continues. Much less than this morning. Did have a large bowel movement in the middle of the night and feels better. No guarding, no rebound. Normal bowel sounds.) Skin: positive: Warm, Dry Extremities: positive: Full ROM, No pedal edema Neurologic/Psychiatric: positive: Oriented x3, CN's nml (2-12), Motor nml - Lab Results Fish Bones: 06/05/20 19:16 06/05/20 19:16 Other Labs: Lab Results x24hrs 06/05/20 06/05/20 06/05/20 Range/Units 20:59 20:30 19:16 WBC (4.8-10.8) x10^3/uL RBC (4.70-6.10) 10^6/uL Hgb (14.0-18.0) g/dL Hct (42.0-52.0) % MCV (80.0-94.0) fL MCH (27.0-31.0) pg MCHC (32.0-36.0) g/dL RDW (12.0-15.0) % Plt Count (130-450) 10^3/uL MPV (7.4-11.4) fL Neut # (Auto) (1.5-6.6) 10^3/uL Lymph # (Auto) (1.5-3.5) 10^3/uL Nash # (Auto) (0.0-1.0) 10^3/uL Eos # (Auto) (0.0-0.7) 10^3/uL Baso # (Auto) (0.0-0.1) 10^3/uL Absolute Nucleated RBC x10^3/uL Nucleated RBC % /100WBC Sodium 132 L (135-145) mmol/L Potassium 3.9 (3.5-5.0) mmol/L Chloride 93 L (101-111) mmol/L Carbon Dioxide 26 (21-32) mmol/L Anion Gap 13.0 (6-13) BUN 26 H (6-20) mg/dL Creatinine 1.1 (0.6-1.2) mg/dL Estimated GFR (MDRD) 65 L (>89) Glucose 276 H (70-100) mg/dL Calcium 8.6 (8.5-10.3) mg/dL Total Bilirubin 0.9 (0.2-1.0) mg/dL AST 32 (10-42) IU/L ALT 28 (10-60) IU/L Alkaline Phosphatase 86 (42-121) IU/L Total Protein 7.0 (6.7-8.2) g/dL Albumin 3.5 (3.2-5.5) g/dL Globulin 3.5 (2.1-4.2) g/dL Albumin/Globulin Ratio 1.0 (1.0-2.2) Lipase 32 (22-51) U/L Urine Color YELLOW Urine Clarity HAZY (CLEAR) Urine pH 5.5 (5.0-7.5) PH Ur Specific [place] 1.010 (1.002-1.030) Urine Protein 30 H (NEGATIVE) mg/dL Urine Glucose (UA) 250 H (NEGATIVE) mg/dL Urine Ketones 15 H (NEGATIVE) mg/dL Urine Occult Blood SMALL H (NEGATIVE) Urine Nitrite NEGATIVE (NEGATIVE) Urine Bilirubin NEGATIVE (NEGATIVE) Urine Urobilinogen 0.2 (NORMAL) (NORMAL) E.U./dL Ur Leukocyte Esterase NEGATIVE (NEGATIVE) Urine RBC 0-5 (0-5) /HPF Urine WBC 0-3 (0-3) /HPF Ur Squamous Epith Cells RARE Squamous (<= Few) Urine Bacteria Rare (None Seen) /HPF Urine Mucus Few Strands Ur Microscopic Review INDICATED Urine Culture Comments NOT INDICATED Nasal Adenovirus (PCR) NOT DETECTED Nasal B. parapertussis DNA (PCR) NOT DETECTED Nasal Coronavir 229E PCR NOT DETECTED Nasal Coronavir HKU1 PCR NOT DETECTED Nasal Coronavir NL63 PCR NOT DETECTED Nasal Coronavir OC43 PCR NOT DETECTED Nasal Enterovir/Rhinovir PCR NOT DETECTED Nasal Influenza B PCR NOT DETECTED Nasal Influenza A PCR NOT DETECTED Nasal Parainfluen 1 PCR NOT DETECTED Nasal Parainfluen 2 PCR NOT DETECTED Nasal Parainfluen 3 PCR NOT DETECTED Nasal Parainfluen 4 PCR NOT DETECTED Nasal RSV (PCR) NOT DETECTED Nasal B.pertussis DNA PCR NOT DETECTED Nasal C.pneumoniae (PCR) NOT DETECTED Dre Human Metapneumo PCR NOT DETECTED Nasal M.pneumoniae (PCR) NOT DETECTED Nasal SARS-CoV-2 (PCR) DETECTED A 06/05/20 Range/Units 19:16 WBC 5.2 (4.8-10.8) x10^3/uL RBC 4.64 L (4.70-6.10) 10^6/uL Hgb 13.2 L (14.0-18.0) g/dL Hct 40.1 L (42.0-52.0) % MCV 86.4 (80.0-94.0) fL MCH 28.4 (27.0-31.0) pg MCHC 32.9 (32.0-36.0) g/dL RDW 12.6 (12.0-15.0) % Plt Count 159 (130-450) 10^3/uL MPV 9.2 (7.4-11.4) fL Neut # (Auto) 4.0 (1.5-6.6) 10^3/uL Lymph # (Auto) 0.6 L (1.5-3.5) 10^3/uL Nash # (Auto) 0.6 (0.0-1.0) 10^3/uL Eos # (Auto) 0.0 (0.0-0.7) 10^3/uL Baso # (Auto) 0.0 (0.0-0.1) 10^3/uL Absolute Nucleated RBC 0.00 x10^3/uL Nucleated RBC % 0.0 /100WBC Sodium (135-145) mmol/L Potassium (3.5-5.0) mmol/L Chloride (101-111) mmol/L Carbon Dioxide (21-32) mmol/L Anion Gap (6-13) BUN (6-20) mg/dL Creatinine (0.6-1.2) mg/dL Estimated GFR (MDRD) (>89) Glucose (70-100) mg/dL Calcium (8.5-10.3) mg/dL Total Bilirubin (0.2-1.0) mg/dL AST (10-42) IU/L ALT (10-60) IU/L Alkaline Phosphatase (42-121) IU/L Total Protein (6.7-8.2) g/dL Albumin (3.2-5.5) g/dL Globulin (2.1-4.2) g/dL Albumin/Globulin Ratio (1.0-2.2) Lipase (22-51) U/L Urine Color Urine Clarity (CLEAR) Urine pH (5.0-7.5) PH Ur Specific [place] (1.002-1.030) Urine Protein (NEGATIVE) mg/dL Urine Glucose (UA) (NEGATIVE) mg/dL Urine Ketones (NEGATIVE) mg/dL Urine Occult Blood (NEGATIVE) Urine Nitrite (NEGATIVE) Urine Bilirubin (NEGATIVE) Urine Urobilinogen (NORMAL) E.U./dL Ur Leukocyte Esterase (NEGATIVE) Urine RBC (0-5) /HPF Urine WBC (0-3) /HPF Ur Squamous Epith Cells (<= Few) Urine Bacteria (None Seen) /HPF Urine Mucus Ur Microscopic Review Urine Culture Comments Nasal Adenovirus (PCR) Nasal B. parapertussis DNA (PCR) Nasal Coronavir 229E PCR Nasal Coronavir HKU1 PCR Nasal Coronavir NL63 PCR Nasal Coronavir OC43 PCR Nasal Enterovir/Rhinovir PCR Nasal Influenza B PCR Nasal Influenza A PCR Nasal Parainfluen 1 PCR Nasal Parainfluen 2 PCR Nasal Parainfluen 3 PCR Nasal Parainfluen 4 PCR Nasal RSV (PCR) Nasal B.pertussis DNA PCR Nasal C.pneumoniae (PCR) Dre Human Metapneumo PCR Nasal M.pneumoniae (PCR) Nasal SARS-CoV-2 (PCR) ABX Reporting Has patient been on IV antibiotics over the past 48 hours?: No Assessment/Plan - Problem List (1) COVID-19 Impression: Pneumonia and hypoxemia. He would have been a candidate for monoclonal antibody and being sent home until his O2 sats dropped to 88%. Plan: Nasal cannula oxygen to keep O2 sats above 92% Decadron 6 mg daily Unfortunately that will most likely affect his glucose Lovenox 40 mg subcu daily Remdesivir daily for 5 days. Today will be day #1. Awaiting pharmacy to come in to give that 200 mg dose, and then will he will get 100 mg daily for 4 more days. He does not have an elevated white cell count, no opacifications on that CT or chest x-ray. We will hold off on bacterial treatment for right now. If status changes, will add azithromycin and Rocephin. (2) Hypoxemia still present but stable without increase O2 need. Conclusion/Plan: Mild at this time. We will continue to monitor with pulse oximetry. Increase his oxygen as needed. (3) Type 2 diabetes mellitus Conclusion/Plan: On NovoLog and the report is 52 units subcu twice daily. Will use a combination of Lantus and short acting AC 3 times daily. Check A1c. Glucose is 223 this morning. Plan:We will get 5 units of Lantus this morning. +4 units short acting according to sliding scale (4) Hypertension Conclusion/Plan: In a diabetic, he is on an JOSHUA inhibitor. Overnight blood pressure was 1 44-154 systolic. Lisinopril this morning. Qualifiers: Hypertension type: essential hypertension Qualified Code(s): I10 - Essential (primary) hypertension
[2020-06-06 07:32] LABS: HEMOGLOBIN A1c% 9.4 % (4.27-6.07)
[2020-06-06] MEDS ORDERED: INSULIN GLARGINE 300 UNIT/3 ML PEN SUBQ SCH ×2 (08:00→21:00)
[2020-06-06] MEDS ORDERED: REMDESIVIR 100MG VIAL 200 MG in SODIUM CHLORIDE 0.9% 210 ML IV SCH (08:00)
[2020-06-06] MEDS ORDERED: NON FORMULARY MED (Remdesivir 200 MG) IV SCH (08:00)
[2020-06-06 08:39] LABS: HGB - HEMOGLOBIN 13.4 g/dL (14.0-18.0); LYMPHOCYTES # (AUTO) 0.4 10^3/uL (1.5-3.5); LYMPHOCYTES % (AUTO) 9.6 %; MEAN CORPUSCULAR HEMOGLOBIN 28.7 pg (27.0-31.0); MEAN CORPUSCULAR HGB CONC 33.2 g/dL (32.0-36.0); MEAN CORPUSCULAR VOLUME 86.5 fL (80.0-94.0); MEAN PLATELET VOLUME 9.4 fL (7.4-11.4); MONOCYTES # (AUTO) 0.2 10^3/uL (0.0-1.0); MONOCYTES % (AUTO) 3.7 %; NEUTROPHILS # (AUTO) 3.5 10^3/uL (1.5-6.6); NEUTROPHILS % (AUTO) 86.5 %; PLT - PLATELET COUNT 164 10^3/uL (130-450); RED BLOOD COUNT 4.67 10^6/uL (4.70-6.10); RED CELL DISTRIBUTION WIDTH 12.6 % (12.0-15.0); WHITE BLOOD COUNT 4.1 x10^3/uL (4.8-10.8)
[2020-06-06] MEDS: INSULIN ASPART 300 UNIT/3 ML PEN SUBQ SCH ×5 (08:40→21:39)
[2020-06-06] MEDS: DEXAMETHASONE 4 MG/ML VIAL IVP SCH (08:41)
[2020-06-06] MEDS: lisinopriL 20 MG TABLET PO SCH (08:42)
[2020-06-06] MEDS: ENOXAPARIN 40 MG/0.4 ML SYRINGE SUBQ SCH (08:42)
[2020-06-06 08:43] LABS: CALCIUM 8.5 mg/dL (8.5-10.3)
[2020-06-06] MEDS ORDERED: REMDESIVIR 100MG VIAL 200 MG in SODIUM CHLORIDE 0.9% 210 ML IV ONE (09:00)
[2020-06-06] MEDS: ALBUTEROL 1 PUFF INH PRN (11:09)
[2020-06-06] MEDS: INSULIN 70/30 HUMAN 300 UNIT/3 ML VIAL SUBQ SCH (21:35)
[2020-06-07] MEDS: SODIUM CHLORIDE FLUSH 0.9% 10 ML SYRINGE IVP SCH ×3 (00:50→16:54)
[2020-06-07] MEDS: LACTATED RINGERS 1,000 ML IV SCH (00:50)
[2020-06-07] MEDS: ACETAMINOPHEN 325 MG TABLET PO PRN ×2 (01:12→20:58)
[2020-06-07] MEDS: ALBUTEROL 1 PUFF INH PRN ×2 (01:15→07:56)
[2020-06-07 05:54] LABS: BASOPHILS % (AUTO) 0.1 %; HGB - HEMOGLOBIN 12.1 g/dL (14.0-18.0); LYMPHOCYTES % (AUTO) 11.5 %; MEAN CORPUSCULAR HEMOGLOBIN 28.5 pg (27.0-31.0); MEAN CORPUSCULAR HGB CONC 33.2 g/dL (32.0-36.0); MEAN CORPUSCULAR VOLUME 85.6 fL (80.0-94.0); MEAN PLATELET VOLUME 9.1 fL (7.4-11.4); MONOCYTES # (AUTO) 0.7 10^3/uL (0.0-1.0); MONOCYTES % (AUTO) 8.5 %; NEUTROPHILS # (AUTO) 6.8 10^3/uL (1.5-6.6); NEUTROPHILS % (AUTO) 79.4 %; PLT - PLATELET COUNT 187 10^3/uL (130-450); RED BLOOD COUNT 4.25 10^6/uL (4.70-6.10); RED CELL DISTRIBUTION WIDTH 12.7 % (12.0-15.0); WHITE BLOOD COUNT 8.5 x10^3/uL (4.8-10.8)
[2020-06-07 06:05] LABS: CALCIUM 8.6 mg/dL (8.5-10.3); CREATININE 0.8 mg/dL (0.6-1.2)
[2020-06-07] MEDS ORDERED: INSULIN GLARGINE 300 UNIT/3 ML PEN SUBQ SCH (08:00)
[2020-06-07] MEDS: INSULIN ASPART 300 UNIT/3 ML PEN SUBQ SCH ×7 (08:33→20:48)
[2020-06-07] MEDS: INSULIN 70/30 HUMAN 300 UNIT/3 ML VIAL SUBQ SCH ×2 (08:33→21:01)
[2020-06-07] MEDS: DEXAMETHASONE 4 MG/ML VIAL IVP SCH (08:34)
[2020-06-07] MEDS: ENOXAPARIN 40 MG/0.4 ML SYRINGE SUBQ SCH (08:35)
[2020-06-07] MEDS: polyethylene glycoL 3350 17 GM PACKET PO SCH (08:35)
[2020-06-07] MEDS: lisinopriL 20 MG TABLET PO SCH (08:35)
[2020-06-07] MEDS: REMDESIVIR IV SCH (10:49)
[2020-06-07] MEDS: SODIUM CHLORIDE 0.9% IV SCH (10:49)
--- NOTE | 2020-06-07 11:20 | PHARMACY PROGRESS NOTE ---
- Best Possible Medication History Admit Date and Time: 06/05/20 2237 Processed by: Pharmacy Medication History completed: Yes Patient Interview: Completed Secondary Source(s): Physician records, Pharmacy records, Insurance records (PATIENT UNABLE TO BE INTERVIEWED DUE TO COVID. PATIENT'S PHARMACY RECORDS OBTAINED FROM [facility]. MEDICATION RECONCILIATION COMPLETED USING [facility] RECORDS ) As the person ultimately responsible for medication therapy, providers are able to order a medication from an existing home medication list in [facility] via the "Reconcile Routine" prior to Confirmation of that medication by business support manager. Such practice is discouraged except when the physician, in their clinical judgment, deems that a medical need exists for a medication without regard to previous use.
[2020-06-07] MEDS: DOCUSATE SODIUM 250 MG CAPSULE PO SCH (20:59)
[2020-06-07] MEDS: SENNA 8.6 MG TABLET PO SCH (21:04)
--- NOTE | 2020-06-07 22:03 | PROVIDER PROGRESS NOTE ---
Subjective - Prog Note Date Prog Note Date: 06/07/20 Prog Note Time: 22:00 - Subjective Pt reports feeling: No change Subjective: I saw him around 630 this morning. He does not remember that. He was already awake, alert, resting comfortably in bed, watching TV and waiting for breakfast. His main problem continues to be hypoxemia. He is down to 1 L and saturating at 92%. If he goes to room air he is 87%. Otherwise he has been very comfortable during this hospitalization for hypoxemia due to Covid. No chest pain, no palpitations. Walking in the room. Eating 100% of his meals. Current Medications - Current Medications Current Medications: Active Medications Acetaminophen (Acetaminophen 325 Mg Tablet) 650 mg PO Q4HR PRN PRN Reason: Pain 1 to 4 Last Admin: 06/07/20 20:58 Dose: 650 mg Documented by: Albuterol (Albuterol 1 Puff) 2 puffs INH RTQ4H PRN PRN Reason: Wheezing Stop: 06/13/20 08:13 Last Admin: 06/07/20 07:56 Dose: 2 puffs Documented by: Dexamethasone (Dexamethasone 4 Mg/Ml Vial) 6 mg IVP DAILY [facility] Last Admin: 06/07/20 08:34 Dose: 6 mg Documented by: Docusate Sodium (Docusate Sodium 250 Mg Capsule) 250 - 500 mg PO DAILY [facility] Last Admin: 06/07/20 20:59 Dose: 250 mg Documented by: Enoxaparin Sodium (Enoxaparin 40 Mg/0.4 Ml Syringe) 40 mg SUBQ DAILY [facility] Last Admin: 06/07/20 08:35 Dose: 40 mg Documented by: Remdesivir 100 mg/ Sodium (Chloride) 100 mls @ 200 mls/hr IV DAILY [facility] Stop: 06/10/20 09:29 Last Infusion: 06/07/20 11:20 Dose: Infused Documented by: Insulin Aspart (Insulin Aspart 300 Unit/3 Ml Pen) 2 - 10 unit SUBQ 0800,1200,1700,2100 [facility]; Protocol Last Admin: 06/07/20 20:48 Dose: Not Given Documented by: Insulin Aspart (Insulin Aspart 300 Unit/3 Ml Pen) 10 unit SUBQ TIDWM [facility] Last Admin: 06/07/20 16:59 Dose: 10 unit Documented by: Insulin Human Isoph/Insulin Regular (Insulin 70/30 Human 300 Unit/3 Ml Vial) 52 unit SUBQ BID [facility] Last Admin: 06/07/20 21:01 Dose: 52 unit Documented by: Lisinopril (Lisinopril 20 Mg Tablet) 20 mg PO DAILY [facility] Last Admin: 06/07/20 08:35 Dose: 20 mg Documented by: Ondansetron HCl (Ondansetron Odt 4 Mg Tablet) 4 mg TL Q6HR PRN PRN Reason: Nausea / Vomiting Ondansetron HCl (Ondansetron 4 Mg/2 Ml Vial) 4 mg IVP Q6HR PRN PRN Reason: Nausea / Vomiting Oxycodone HCl (Oxycodone 5 Mg Tablet) 5 mg PO Q4HR PRN PRN Reason: Pain 5 to 7 Polyethylene Glycol (Polyethylene Glycol 3350 17 Gm Packet) 17 gm PO DAILY [facility] Last Admin: 06/07/20 08:35 Dose: 17 gm Documented by: Senna (Senna 8.6 Mg Tablet) 8.6 - 17.2 mg PO DAILY [facility] Last Admin: 06/07/20 21:04 Dose: 8.6 mg Documented by: Sodium Chloride (Sodium Chloride Flush 0.9% 10 Ml Syringe) 10 ml IVP PRN PRN PRN Reason: NEEDED PER PROVIDER ORDERS Sodium Chloride (Sodium Chloride Flush 0.9% 10 Ml Syringe) 10 ml IVP 0100,0900,1700 [facility] Last Admin: 06/07/20 16:54 Dose: 10 ml Documented by: Aspirin 81 mg PO DAILY 03/27/14 Lisinopril 20 mg PO DAILY 03/27/14 Omeprazole [PriLOSEC] 40 mg PO DAILY 03/27/14 Insulin 70/30 Human [Humulin 70-30 Vial] 52 unit SUBQ BID 06/06/20 Alogliptin Benzoate [Alogliptin] 25 mg PO DAILY 06/07/20 Atorvastatin Calcium [Lipitor] 80 mg PO DAILY 06/07/20 Budesonide/Formoterol Fumarate [Symbicort 160-4.5 Mcg Inhaler] 2 puffs PO DAILY 06/07/20 Cholecalciferol [Vitamin D3] 25 mcg PO DAILY 06/07/20 Multivit with Minerals/Lutein [Theratrum Complete 50 Plus Tab] 1 tab PO DAILY 06/07/20 Objective - Vital Signs/Intake & Output Reviewed Vital Signs: Yes Vital Signs: Vital Signs x48h Temp Pulse Resp BP BP Pulse Ox 06/07/20 20:44 37.0 C 74 24 138/64 H 92 06/07/20 16:47 37.1 C 81 22 151/66 H 93 Intake & Output: Intake & Output 06/04/20 06/05/20 06/06/20 06/07/20 23:59 23:59 23:59 23:59 Intake Total 2220 3183.077 Balance 2220 3183.077 - Objective General Appearance: positive: No acute distress, Alert Eyes Bilateral: positive: PERRL, EOMI Neck: positive: No JVD. negative: Stiff neck Respiratory: positive: No respiratory distress. negative: Wheezes, Rales, Rhonchi Cardiovascular: positive: Regular rate & rhythm. negative: Gallop/S4, Friction rub Abdomen: positive: Non-tender, No organomegaly, Nml bowel sounds, No distention Skin: positive: Warm, Dry Neurologic/Psychiatric: positive: Oriented x3, CN's nml (2-12), Motor nml - Lab Results Fish Bones: 06/07/20 05:35 06/07/20 05:35 Other Labs: Lab Results x24hrs 06/07/20 06/07/20 06/07/20 Range/Units 20:40 16:44 11:17 WBC (4.8-10.8) x10^3/uL RBC (4.70-6.10) 10^6/uL Hgb (14.0-18.0) g/dL Hct (42.0-52.0) % MCV (80.0-94.0) fL MCH (27.0-31.0) pg MCHC (32.0-36.0) g/dL RDW (12.0-15.0) % Plt Count (130-450) 10^3/uL MPV (7.4-11.4) fL Neut # (Auto) (1.5-6.6) 10^3/uL Lymph # (Auto) (1.5-3.5) 10^3/uL [place] # (Auto) (0.0-1.0) 10^3/uL Eos # (Auto) (0.0-0.7) 10^3/uL Baso # (Auto) (0.0-0.1) 10^3/uL Absolute Nucleated RBC x10^3/uL Nucleated RBC % /100WBC Sodium (135-145) mmol/L Potassium (3.5-5.0) mmol/L Chloride (101-111) mmol/L Carbon Dioxide (21-32) mmol/L Anion Gap (6-13) BUN (6-20) mg/dL Creatinine (0.6-1.2) mg/dL Estimated GFR (MDRD) (>89) Glucose (70-100) mg/dL POC Whole Bld Glucose 140 H 150 H 110 H (70 - 100) mg/dL Calcium (8.5-10.3) mg/dL 06/07/20 06/07/20 06/07/20 Range/Units 07:50 05:35 05:35 WBC 8.5 (4.8-10.8) x10^3/uL RBC 4.25 L (4.70-6.10) 10^6/uL Hgb 12.1 L (14.0-18.0) g/dL Hct 36.4 L (42.0-52.0) % MCV 85.6 (80.0-94.0) fL MCH 28.5 (27.0-31.0) pg MCHC 33.2 (32.0-36.0) g/dL RDW 12.7 (12.0-15.0) % Plt Count 187 (130-450) 10^3/uL MPV 9.1 (7.4-11.4) fL Neut # (Auto) 6.8 H (1.5-6.6) 10^3/uL Lymph # (Auto) 1.0 L (1.5-3.5) 10^3/uL [place] # (Auto) 0.7 (0.0-1.0) 10^3/uL Eos # (Auto) 0.0 (0.0-0.7) 10^3/uL Baso # (Auto) 0.0 (0.0-0.1) 10^3/uL Absolute Nucleated RBC 0.00 x10^3/uL Nucleated RBC % 0.0 /100WBC Sodium 139 (135-145) mmol/L Potassium 3.4 L (3.5-5.0) mmol/L Chloride 104 (101-111) mmol/L Carbon Dioxide 27 (21-32) mmol/L Anion Gap 8.0 (6-13) BUN 27 H (6-20) mg/dL Creatinine 0.8 (0.6-1.2) mg/dL Estimated GFR (MDRD) 94 (>89) Glucose 93 (70-100) mg/dL POC Whole Bld Glucose 92 (70 - 100) mg/dL Calcium 8.6 (8.5-10.3) mg/dL ABX Reporting Has patient been on IV antibiotics over the past 48 hours?: Yes Assessment/Plan - Problem List (1) COVID-19 Impression: Pneumonia and hypoxemia. He would have been a candidate for monoclonal antibody and being sent home until his O2 sats dropped to 88%. Plan: Nasal cannula oxygen to keep O2 sats above 92% Decadron 6 mg daily 5 days. Lovenox 40 mg subcu daily Remdesivir daily for 5 days. Today will be day #3. Day 1 he received one 200 mg dose, and then will he will get 100 mg daily for 4 more days. He does not have an elevated white cell count, no opacifications on that CT or chest x-ray. We will hold off on bacterial treatment for right now. No status change so no addition of azithromycin and Rocephin. (2) Hypoxemia still present but stable without increase O2 need. Unfortunately still at 87% on room air. Conclusion/Plan: Mild at this time. We will continue to monitor with pulse oximetry. Increase his oxygen as needed. (3) Type 2 diabetes mellitus Conclusion/Plan: I initially had him on Lantus and short acting insulin. I had read his medication list as 52 units of short acting subcu twice a day. But he is on 70/30 twice a day and short acting insulin. So his medications were changed yesterday. Glucose has been 110 and 140 today. Even on Decadron 6 mg a day. (4) Hypertension Conclusion/Plan: In a diabetic, he is on an JOSHUA inhibitor. Blood pressure 131-151 systolic today. No changes. Qualifiers: Hypertension type: essential hypertension Qualified Code(s): I10 - Essential (primary) hypertension (5) Hypokalemia supplemented po
[2020-06-07] MEDS ORDERED: POTASSIUM CHLORIDE 20 MEQ TABLET PO ONE (22:07)
[2020-06-08] MEDS: SODIUM CHLORIDE FLUSH 0.9% 10 ML SYRINGE IVP SCH ×3 (01:02→17:11)
[2020-06-08 05:45] LABS: HGB - HEMOGLOBIN 13.3 g/dL (14.0-18.0); LYMPHOCYTES % (AUTO) 11.4 %; MEAN CORPUSCULAR HEMOGLOBIN 28.7 pg (27.0-31.0); MEAN CORPUSCULAR HGB CONC 33.2 g/dL (32.0-36.0); MEAN CORPUSCULAR VOLUME 86.4 fL (80.0-94.0); MONOCYTES # (AUTO) 0.8 10^3/uL (0.0-1.0); MONOCYTES % (AUTO) 8.6 %; NEUTROPHILS # (AUTO) 7.3 10^3/uL (1.5-6.6); NEUTROPHILS % (AUTO) 79.3 %; PLT - PLATELET COUNT 224 10^3/uL (130-450); RED BLOOD COUNT 4.64 10^6/uL (4.70-6.10); RED CELL DISTRIBUTION WIDTH 12.8 % (12.0-15.0); WHITE BLOOD COUNT 9.2 x10^3/uL (4.8-10.8)
[2020-06-08 05:59] LABS: CALCIUM 8.5 mg/dL (8.5-10.3); CREATININE 0.8 mg/dL (0.6-1.2)
[2020-06-08] MEDS: INSULIN ASPART 300 UNIT/3 ML PEN SUBQ SCH ×7 (08:39→22:18)
[2020-06-08] MEDS: SENNA 8.6 MG TABLET PO SCH (08:58)
[2020-06-08] MEDS: lisinopriL 20 MG TABLET PO SCH (08:58)
[2020-06-08] MEDS: POTASSIUM CHLORIDE 20 MEQ TABLET PO SCH (08:59)
[2020-06-08] MEDS: DOCUSATE SODIUM 250 MG CAPSULE PO SCH (08:59)
[2020-06-08] MEDS: polyethylene glycoL 3350 17 GM PACKET PO SCH (08:59)
[2020-06-08] MEDS: ENOXAPARIN 40 MG/0.4 ML SYRINGE SUBQ SCH (08:59)
[2020-06-08] MEDS: DEXAMETHASONE 4 MG/ML VIAL IVP SCH (08:59)
[2020-06-08] MEDS: INSULIN 70/30 HUMAN 300 UNIT/3 ML VIAL SUBQ SCH ×2 (09:03→22:17)
[2020-06-08] MEDS: REMDESIVIR IV SCH (09:17)
[2020-06-08] MEDS: SODIUM CHLORIDE 0.9% IV SCH (09:17)
[2020-06-08] MEDS: ALBUTEROL 1 PUFF INH PRN (10:00)
[2020-06-08] MEDS ORDERED: LORazepam 2 MG/ML VIAL IVP PRN (17:43)
--- NOTE | 2020-06-08 17:49 | PROVIDER PROGRESS NOTE ---
Assessment/Plan - Problem List (1) Pneumonia due to COVID-19 virus Assessment/Plan: Will try to wean off the nasal cannula oxygen to room air, keeping O2 sats above 90% Decadron 6 mg daily 5 days planned Lovenox 40 mg subcu daily was started Remdesivir daily for 5 days planned. Today will be day #3. (Day 1 he received one 200 mg dose, and then will he will get 100 mg daily for 4 days). He does not have an elevated white cell count, no opacifications on that CT or chest x-ray. We will hold off on bacterial treatment for right now. No status change so no addition of azithromycin and Rocephin. (2) Hypoxemia This is still present but stable without increase O2 need. We will continue to monitor with pulse oximetry. Adjust his oxygen as needed or hopefully wean to off (3) Type 2 diabetes mellitus Glucose has been 110 to 190 today. Even on Decadron 6 mg a day. Continue diabetic diet and Insulin with ss coverage as well. (4) Hypertension He is on his JOSHUA inhibitor. (5) Hypokalemia Resolved with supplemented po K Follow BMP daily. - Current Meds Current Meds: Current Medications Generic Name Dose Route Start Last Admin Trade Name Freq PRN Reason Stop Dose Admin Acetaminophen 650 mg 06/05/20 22:51 06/07/20 20:58 Acetaminophen 325 Mg Tablet PO 650 mg Q4HR PRN Administration Pain 1 to 4 Albuterol 2 puffs 06/06/20 08:14 06/07/20 07:56 Albuterol 1 Puff INH 06/13/20 08:13 2 puffs RTQ4H PRN Administration Wheezing Dexamethasone 6 mg 06/06/20 09:00 06/08/20 08:59 Dexamethasone 4 Mg/Ml Vial IVP 06/11/20 08:59 6 mg DAILY ROSA Administration Docusate Sodium 250 - 500 mg 06/07/20 21:00 06/08/20 08:59 Docusate Sodium 250 Mg Capsule PO 250 mg DAILY ROSA Administration Enoxaparin Sodium 40 mg 06/06/20 09:00 06/08/20 08:59 Enoxaparin 40 Mg/0.4 Ml Syringe SUBQ 40 mg DAILY ROSA Administration Remdesivir 100 mg/ Sodium 100 mls @ 200 mls/hr 06/07/20 09:00 06/08/20 09:50 Chloride IV 06/10/20 09:29 Infused DAILY [facility] Infusion Insulin Aspart 2 - 10 unit 06/06/20 08:00 06/08/20 17:10 Insulin Aspart 300 Unit/3 Ml Pen SUBQ Not Given 0800,1200,1700,2100 [facility] Protocol Insulin Aspart 10 unit 06/06/20 17:00 06/08/20 17:11 Insulin Aspart 300 Unit/3 Ml Pen SUBQ 10 unit TIDWM [facility] Administration Insulin Human Isoph/Insulin Regular 52 unit 06/06/20 21:00 06/08/20 09:03 Insulin 70/30 Human 300 Unit/3 Ml Vial SUBQ 52 unit BID ROSA Administration Lisinopril 20 mg 06/06/20 09:00 06/08/20 08:58 Lisinopril 20 Mg Tablet PO 20 mg DAILY ROSA Administration Polyethylene Glycol 17 gm 06/07/20 09:00 06/08/20 08:59 Polyethylene Glycol 3350 17 Gm Packet PO 17 gm DAILY ROSA Administration Potassium Chloride 20 meq 06/08/20 08:00 06/08/20 08:59 Potassium Chloride 20 Meq Tablet PO 20 meq DAILYWM [facility] Administration Senna 8.6 - 17.2 mg 06/07/20 21:00 06/08/20 08:58 Senna 8.6 Mg Tablet PO 8.6 mg DAILY ROSA Administration Sodium Chloride 10 ml 06/06/20 01:00 06/08/20 17:11 Sodium Chloride Flush 0.9% 10 Ml Syringe IVP 10 ml 0100,0900,1700 ROSA Administration - Lab Result Fish Bone Diagrams: 06/08/20 05:35 06/08/20 05:35 - Additional Planning My Orders: My Active Orders 06/08/20 17:42 Miscellaenous Nursing Order [RC] QSHIFT Subjective - Subjective Patient Reports: Feeling Better, Resting Comfortably, No Complaints Objective Vital Signs: Vital Signs - 24 hr 06/07/20 06/07/20 06/08/20 20:30 20:44 01:07 Temperature 37.0 C 36.9 C Heart Rate 74 Heart Rate [ 74 71 Brachial] Respiratory 20 24 17 Rate Blood Pressure 143/62 H [Left Brachial artery] Blood Pressure 138/64 H [Right Brachial artery] O2 Saturation 92 91 L 06/08/20 06/08/20 06/08/20 01:20 05:00 09:00 Temperature 36.9 C 37.0 C Heart Rate Heart Rate [ 74 97 Brachial] Respiratory 18 16 Rate Blood Pressure [Left Brachial artery] Blood Pressure 150/70 H 129/60 [Right Brachial artery] O2 Saturation 95 93 88 L 06/08/20 06/08/20 11:19 16:51 Temperature 36.9 C 37.2 C Heart Rate Heart Rate [ 88 86 Brachial] Respiratory 19 18 Rate Blood Pressure 111/56 L [Left Brachial artery] Blood Pressure 149/72 H [Right Brachial artery] O2 Saturation 95 93 Oxygen O2 Source Nasal cannula I&O (Last 24 Hrs): Intake and Output Totals x24h 06/06/20 06/07/20 06/08/20 23:59 23:59 23:59 Intake Total 2220 3303.077 700 Balance 2220 3303.077 700 General: Alert, Oriented x3 HEENT: Mucous membr. moist/pink, Other (Wearing O2 per n.c.) Neck: Supple Neuro: Alert, Non Focal Cardiovascular: Regular rate, No murmurs Respiratory: No respiratory distress, Breath sounds nml Abdomen: Soft Extremities: No edema, No tenderness/swelling - Results Results: Laboratory Results WBC 9.2 x10^3/uL (4.8-10.8) 06/08/20 05:35 RBC 4.64 10^6/uL (4.70-6.10) L 06/08/20 05:35 Hgb 13.3 g/dL (14.0-18.0) L 06/08/20 05:35 Hct 40.1 % (42.0-52.0) L 06/08/20 05:35 MCV 86.4 fL (80.0-94.0) 06/08/20 05:35 MCH 28.7 pg (27.0-31.0) 06/08/20 05:35 MCHC 33.2 g/dL (32.0-36.0) 06/08/20 05:35 RDW 12.8 % (12.0-15.0) 06/08/20 05:35 Plt Count 224 10^3/uL (130-450) 06/08/20 05:35 MPV 9.0 fL (7.4-11.4) 06/08/20 05:35 Neut # (Auto) 7.3 10^3/uL (1.5-6.6) H 06/08/20 05:35 Lymph # (Auto) 1.0 10^3/uL (1.5-3.5) L 06/08/20 05:35 [place] # (Auto) 0.8 10^3/uL (0.0-1.0) 06/08/20 05:35 Eos # (Auto) 0.0 10^3/uL (0.0-0.7) 06/08/20 05:35 Baso # (Auto) 0.0 10^3/uL (0.0-0.1) 06/08/20 05:35 Absolute Nucleated RBC 0.00 x10^3/uL 06/08/20 05:35 Nucleated RBC % 0.0 /100WBC 06/08/20 05:35 Sodium 138 mmol/L (135-145) 06/08/20 05:35 Potassium 3.6 mmol/L (3.5-5.0) 06/08/20 05:35 Chloride 99 mmol/L (101-111) L 06/08/20 05:35 Carbon Dioxide 28 mmol/L (21-32) 06/08/20 05:35 Anion Gap 11.0 (6-13) 06/08/20 05:35 BUN 21 mg/dL (6-20) H 06/08/20 05:35 Creatinine 0.8 mg/dL (0.6-1.2) 06/08/20 05:35 Estimated GFR (MDRD) 94 (>89) 06/08/20 05:35 Glucose 86 mg/dL (70-100) 06/08/20 05:35 POC Whole Bld Glucose 110 mg/dL (70 - 100) H 06/08/20 16:43 Estimat Average Glucose 223 mg/dL (70-100) H 06/06/20 05:08 Hemoglobin A1c % 9.4 % (4.27-6.07) H 06/06/20 05:08 Calcium 8.5 mg/dL (8.5-10.3) 06/08/20 05:35 Total Bilirubin 0.9 mg/dL (0.2-1.0) 06/05/20 19:16 AST 32 IU/L (10-42) 06/05/20 19:16 ALT 28 IU/L (10-60) 06/05/20 19:16 Alkaline Phosphatase 86 IU/L (42-121) 06/05/20 19:16 Total Protein 7.0 g/dL (6.7-8.2) 06/05/20 19:16 Albumin 3.5 g/dL (3.2-5.5) 06/05/20 19:16 Globulin 3.5 g/dL (2.1-4.2) 06/05/20 19:16 Albumin/Globulin Ratio 1.0 (1.0-2.2) 06/05/20 19:16 Lipase 32 U/L (22-51) 06/05/20 19:16 Urine Color YELLOW 06/05/20 20:30 Urine Clarity HAZY (CLEAR) 06/05/20 20:30 Urine pH 5.5 PH (5.0-7.5) 06/05/20 20:30 Ur Specific [place] 1.010 (1.002-1.030) 06/05/20 20:30 Urine Protein 30 mg/dL (NEGATIVE) H 06/05/20 20:30 Urine Glucose (UA) 250 mg/dL (NEGATIVE) H 06/05/20 20:30 Urine Ketones 15 mg/dL (NEGATIVE) H 06/05/20 20:30 Urine Occult Blood SMALL (NEGATIVE) H 06/05/20 20:30 Urine Nitrite NEGATIVE (NEGATIVE) 06/05/20 20:30 Urine Bilirubin NEGATIVE (NEGATIVE) 06/05/20 20:30 Urine Urobilinogen 0.2 (NORMAL) E.U./dL (NORMAL) 06/05/20 20:30 Ur Leukocyte Esterase NEGATIVE (NEGATIVE) 06/05/20 20:30 Urine RBC 0-5 /HPF (0-5) 06/05/20 20:30 Urine WBC 0-3 /HPF (0-3) 06/05/20 20:30 Ur Squamous Epith Cells RARE Squamous (<= Few) 06/05/20 20:30 Urine Bacteria Rare /HPF (None Seen) 06/05/20 20:30 Urine Mucus Few Strands 06/05/20 20:30 Ur Microscopic Review INDICATED 06/05/20 20:30 Urine Culture Comments NOT INDICATED 06/05/20 20:30 Nasal Adenovirus (PCR) NOT DETECTED 06/05/20 20:59 Nasal B. parapertussis DNA (PCR) NOT DETECTED 06/05/20 20:59 Nasal Coronavir 229E PCR NOT DETECTED 06/05/20 20:59 Nasal Coronavir HKU1 PCR NOT DETECTED 06/05/20 20:59 Nasal Coronavir NL63 PCR NOT DETECTED 06/05/20 20:59 Nasal Coronavir OC43 PCR NOT DETECTED 06/05/20 20:59 Nasal Enterovir/Rhinovir PCR NOT DETECTED 06/05/20 20:59 Nasal Influenza B PCR NOT DETECTED 06/05/20 20:59 Nasal Influenza A PCR NOT DETECTED 06/05/20 20:59 Nasal Parainfluen 1 PCR NOT DETECTED 06/05/20 20:59 Nasal Parainfluen 2 PCR NOT DETECTED 06/05/20 20:59 Nasal Parainfluen 3 PCR NOT DETECTED 06/05/20 20:59 Nasal Parainfluen 4 PCR NOT DETECTED 06/05/20 20:59 Nasal RSV (PCR) NOT DETECTED 06/05/20 20:59 Nasal B.pertussis DNA PCR NOT DETECTED 06/05/20 20:59 Nasal C.pneumoniae (PCR) NOT DETECTED 06/05/20 20:59 Dre Human Metapneumo PCR NOT DETECTED 06/05/20 20:59 Nasal M.pneumoniae (PCR) NOT DETECTED 06/05/20 20:59 Nasal SARS-CoV-2 (PCR) DETECTED A 06/05/20 20:59
[2020-06-08] MEDS: ACETAMINOPHEN 325 MG TABLET PO PRN (21:46)
[2020-06-08] MEDS ORDERED: INSULIN GLARGINE 300 UNIT/3 ML PEN SUBQ SCH (23:00)
[2020-06-09] MEDS: SODIUM CHLORIDE FLUSH 0.9% 10 ML SYRINGE IVP SCH ×3 (00:33→17:07)
[2020-06-09 05:43] LABS: BASOPHILS % (AUTO) 0.1 %; LYMPHOCYTES # (AUTO) 1.1 10^3/uL (1.5-3.5); LYMPHOCYTES % (AUTO) 12.5 %; MEAN CORPUSCULAR HGB CONC 32.3 g/dL (32.0-36.0); MEAN CORPUSCULAR VOLUME 86.7 fL (80.0-94.0); MEAN PLATELET VOLUME 10.4 fL (7.4-11.4); MONOCYTES # (AUTO) 0.8 10^3/uL (0.0-1.0); MONOCYTES % (AUTO) 8.6 %; NEUTROPHILS # (AUTO) 6.8 10^3/uL (1.5-6.6); NEUTROPHILS % (AUTO) 78.1 %; PLT - PLATELET COUNT 200 10^3/uL (130-450); RED BLOOD COUNT 4.65 10^6/uL (4.70-6.10); WHITE BLOOD COUNT 8.7 x10^3/uL (4.8-10.8)
[2020-06-09 05:53] LABS: CALCIUM 8.3 mg/dL (8.5-10.3); CREATININE 0.7 mg/dL (0.6-1.2)
[2020-06-09] MEDS: DEXAMETHASONE 4 MG/ML VIAL IVP SCH (08:38)
[2020-06-09] MEDS: POTASSIUM CHLORIDE 20 MEQ TABLET PO SCH (08:39)
[2020-06-09] MEDS: lisinopriL 20 MG TABLET PO SCH (08:39)
[2020-06-09] MEDS: SENNA 8.6 MG TABLET PO SCH (08:39)
[2020-06-09] MEDS: DOCUSATE SODIUM 250 MG CAPSULE PO SCH (08:39)
[2020-06-09] MEDS: INSULIN ASPART 300 UNIT/3 ML PEN SUBQ SCH ×5 (08:40→22:02)
[2020-06-09] MEDS: polyethylene glycoL 3350 17 GM PACKET PO SCH (08:40)
[2020-06-09] MEDS: ENOXAPARIN 40 MG/0.4 ML SYRINGE SUBQ SCH (08:40)
[2020-06-09] MEDS: INSULIN 70/30 HUMAN 300 UNIT/3 ML VIAL SUBQ SCH ×2 (08:43→22:03)
[2020-06-09] MEDS: REMDESIVIR IV SCH (09:02)
[2020-06-09] MEDS: SODIUM CHLORIDE 0.9% IV SCH (09:02)
--- NOTE | 2020-06-09 16:27 | PROVIDER PROGRESS NOTE ---
Assessment/Plan - Problem List (1) Pneumonia due to COVID-19 virus Assessment/Plan: Patient still needed 1 L oxygen to support he has 92% of oxygen saturation, continue Decadron 6 mg daily 5 days planned, Lovenox 40 mg subcu daily was started, Remdesivir daily for 5 days planned. (2) Hypoxemia This is still present but stable, continue O2 support. We will continue to monitor with pulse oximetry. Adjust his oxygen as needed or hopefully wean to off (3) Type 2 diabetes mellitus Continue home insulin schedule, starting slide scale, added 3 times daily NovoLog, patient is on still Decadron (4) Hypertension stable, He is on his JOSHUA inhibitor. (5) Hypokalemia Resolved with supplemented po K Follow BMP daily. - Current Meds Current Meds: Current Medications Generic Name Dose Route Start Last Admin Trade Name Freq PRN Reason Stop Dose Admin Acetaminophen 650 mg 06/05/20 22:51 06/08/20 21:46 Acetaminophen 325 Mg Tablet PO 650 mg Q4HR PRN Administration Pain 1 to 4 Albuterol 2 puffs 06/06/20 08:14 06/08/20 10:00 Albuterol 1 Puff INH 06/13/20 08:13 2 puffs RTQ4H PRN Administration Wheezing Dexamethasone 6 mg 06/06/20 09:00 06/09/20 08:38 Dexamethasone 4 Mg/Ml Vial IVP 06/11/20 08:59 6 mg DAILY ROSA Administration Docusate Sodium 250 - 500 mg 06/07/20 21:00 06/09/20 08:39 Docusate Sodium 250 Mg Capsule PO Not Given DAILY ROSA Enoxaparin Sodium 40 mg 06/06/20 09:00 06/09/20 08:40 Enoxaparin 40 Mg/0.4 Ml Syringe SUBQ 40 mg DAILY [facility]A Administration Remdesivir 100 mg/ Sodium 100 mls @ 200 mls/hr 06/07/20 09:00 06/09/20 09:34 Chloride IV 06/10/20 09:29 Infused DAILY [facility] Infusion Insulin Aspart 2 - 10 unit 06/06/20 08:00 06/09/20 12:10 Insulin Aspart 300 Unit/3 Ml Pen SUBQ 6 unit 0800,1200,1700,2100 [facility]A Administration Protocol Insulin Human Isoph/Insulin Regular 52 unit 06/06/20 21:00 06/09/20 08:43 Insulin 70/30 Human 300 Unit/3 Ml Vial SUBQ 52 unit BID ROSA Administration Lisinopril 20 mg 06/06/20 09:00 06/09/20 08:39 Lisinopril 20 Mg Tablet PO 20 mg DAILY ROSA Administration Polyethylene Glycol 17 gm 06/07/20 09:00 06/09/20 08:40 Polyethylene Glycol 3350 17 Gm Packet PO Not Given DAILY ROSA Potassium Chloride 20 meq 06/08/20 08:00 06/09/20 08:39 Potassium Chloride 20 Meq Tablet PO 20 meq DAILYWM ROSA Administration Senna 8.6 - 17.2 mg 06/07/20 21:00 06/09/20 08:39 Senna 8.6 Mg Tablet PO Not Given DAILY ROSA Sodium Chloride 10 ml 06/05/20 22:38 06/09/20 09:02 Sodium Chloride Flush 0.9% 10 Ml Syringe IVP 10 ml PRN PRN Administration NEEDED PER PROVIDER ORDERS Sodium Chloride 10 ml 06/06/20 01:00 06/09/20 08:49 Sodium Chloride Flush 0.9% 10 Ml Syringe IVP 10 ml 0100,0900,1700 ROSA Administration - Lab Result Fish Bone Diagrams: 06/09/20 04:05 06/09/20 04:05 - Additional Planning My Orders: My Active Orders 06/09/20 16:22 Simethicone [Mylicon] 80 mg PO 0900,1300,1800,2100 06/09/20 17:00 Insulin Aspart [NovoLOG] 10 unit SUBQ TIDWM 06/10/20 05:00 BMP - BASIC METABOLIC PANEL [CHEM] DAILYLAB CBC - COMP BLD CT W/AUTO DIFF [HEME] DAILYLAB 06/11/20 05:00 BMP - BASIC METABOLIC PANEL [CHEM] DAILYLAB CBC - COMP BLD CT W/AUTO DIFF [HEME] DAILYLAB 06/12/20 05:00 BMP - BASIC METABOLIC PANEL [CHEM] DAILYLAB CBC - COMP BLD CT W/AUTO DIFF [HEME] DAILYLAB 06/13/20 05:00 BMP - BASIC METABOLIC PANEL [CHEM] DAILYLAB CBC - COMP BLD CT W/AUTO DIFF [HEME] DAILYLAB 06/14/20 05:00 BMP - BASIC METABOLIC PANEL [CHEM] DAILYLAB CBC - COMP BLD CT W/AUTO DIFF [HEME] DAILYLAB 06/15/20 05:00 BMP - BASIC METABOLIC PANEL [CHEM] DAILYLAB CBC - COMP BLD CT W/AUTO DIFF [HEME] DAILYLAB Subjective - Subjective Patient Reports: Feeling Better Objective Vital Signs: Vital Signs - 24 hr 06/08/20 06/08/20 06/08/20 16:51 17:00 21:00 Temperature 37.2 C 36.6 C Heart Rate 86 Heart Rate [ 86 82 Brachial] Respiratory 18 18 20 Rate Blood Pressure 111/56 L [Left Brachial artery] Blood Pressure 142/58 H [Right Brachial artery] O2 Saturation 93 93 06/08/20 06/09/20 06/09/20 21:52 00:30 00:35 Temperature 36.9 C Heart Rate Heart Rate [ 70 Brachial] Respiratory 17 Rate Blood Pressure 140/58 H [Left Brachial artery] Blood Pressure [Right Brachial artery] O2 Saturation 91 L 100 97 06/09/20 06/09/20 06/09/20 03:32 08:06 12:12 Temperature 36.8 C 37.0 C 36.8 C Heart Rate Heart Rate [ 70 96 100 Brachial] Respiratory 18 18 22 Rate Blood Pressure 166/73 H 111/75 [Left Brachial artery] Blood Pressure 109/69 [Right Brachial artery] O2 Saturation 93 90 L 92 Oxygen O2 Source Nasal cannula I&O (Last 24 Hrs): Intake and Output Totals x24h 06/07/20 06/08/20 06/09/20 23:59 23:59 23:59 Intake Total 3303.077 1200 1060 Balance 3303.077 1200 1060 General: Alert, Oriented x3, Cooperative, No acute distress HEENT: Atraumatic Neck: Supple Lymphatic: no adenopathy Neuro: Alert, Non Focal, Oriented Times 3 Cardiovascular: Regular rate, Normal S1, Normal S2 Respiratory: Chest non-tender, No respiratory distress Abdomen: Normal bowel sounds, Soft, No tenderness Extremities: Normal pulses - Results Results: Laboratory Results WBC 8.7 x10^3/uL (4.8-10.8) 06/09/20 04:05 RBC 4.65 10^6/uL (4.70-6.10) L 06/09/20 04:05 Hgb 13.0 g/dL (14.0-18.0) L 06/09/20 04:05 Hct 40.3 % (42.0-52.0) L 06/09/20 04:05 MCV 86.7 fL (80.0-94.0) 06/09/20 04:05 MCH 28.0 pg (27.0-31.0) 06/09/20 04:05 MCHC 32.3 g/dL (32.0-36.0) 06/09/20 04:05 RDW 13.0 % (12.0-15.0) 06/09/20 04:05 Plt Count 200 10^3/uL (130-450) 06/09/20 04:05 MPV 10.4 fL (7.4-11.4) 06/09/20 04:05 Neut # (Auto) 6.8 10^3/uL (1.5-6.6) H 06/09/20 04:05 Lymph # (Auto) 1.1 10^3/uL (1.5-3.5) L 06/09/20 04:05 [place] # (Auto) 0.8 10^3/uL (0.0-1.0) 06/09/20 04:05 Eos # (Auto) 0.0 10^3/uL (0.0-0.7) 06/09/20 04:05 Baso # (Auto) 0.0 10^3/uL (0.0-0.1) 06/09/20 04:05 Absolute Nucleated RBC 0.00 x10^3/uL 06/09/20 04:05 Nucleated RBC % 0.0 /100WBC 06/09/20 04:05 Sodium 137 mmol/L (135-145) 06/09/20 04:05 Potassium 3.6 mmol/L (3.5-5.0) 06/09/20 04:05 Chloride 99 mmol/L (101-111) L 06/09/20 04:05 Carbon Dioxide 29 mmol/L (21-32) 06/09/20 04:05 Anion Gap 9.0 (6-13) 06/09/20 04:05 BUN 24 mg/dL (6-20) H 06/09/20 04:05 Creatinine 0.7 mg/dL (0.6-1.2) 06/09/20 04:05 Estimated GFR (MDRD) 109 (>89) 06/09/20 04:05 Glucose 90 mg/dL (70-100) 06/09/20 04:05 POC Whole Bld Glucose 267 mg/dL (70 - 100) H 06/09/20 11:48 Estimat Average Glucose 223 mg/dL (70-100) H 06/06/20 05:08 Hemoglobin A1c % 9.4 % (4.27-6.07) H 06/06/20 05:08 Calcium 8.3 mg/dL (8.5-10.3) L 06/09/20 04:05 Total Bilirubin 0.9 mg/dL (0.2-1.0) 06/05/20 19:16 AST 32 IU/L (10-42) 06/05/20 19:16 ALT 28 IU/L (10-60) 06/05/20 19:16 Alkaline Phosphatase 86 IU/L (42-121) 06/05/20 19:16 Total Protein 7.0 g/dL (6.7-8.2) 06/05/20 19:16 Albumin 3.5 g/dL (3.2-5.5) 06/05/20 19:16 Globulin 3.5 g/dL (2.1-4.2) 06/05/20 19:16 Albumin/Globulin Ratio 1.0 (1.0-2.2) 06/05/20 19:16 Lipase 32 U/L (22-51) 06/05/20 19:16 Urine Color YELLOW 06/05/20 20:30 Urine Clarity HAZY (CLEAR) 06/05/20 20:30 Urine pH 5.5 PH (5.0-7.5) 06/05/20 20:30 Ur Specific [place] 1.010 (1.002-1.030) 06/05/20 20:30 Urine Protein 30 mg/dL (NEGATIVE) H 06/05/20 20:30 Urine Glucose (UA) 250 mg/dL (NEGATIVE) H 06/05/20 20:30 Urine Ketones 15 mg/dL (NEGATIVE) H 06/05/20 20:30 Urine Occult Blood SMALL (NEGATIVE) H 06/05/20 20:30 Urine Nitrite NEGATIVE (NEGATIVE) 06/05/20 20:30 Urine Bilirubin NEGATIVE (NEGATIVE) 06/05/20 20:30 Urine Urobilinogen 0.2 (NORMAL) E.U./dL (NORMAL) 06/05/20 20:30 Ur Leukocyte Esterase NEGATIVE (NEGATIVE) 06/05/20 20:30 Urine RBC 0-5 /HPF (0-5) 06/05/20 20:30 Urine WBC 0-3 /HPF (0-3) 06/05/20 20:30 Ur Squamous Epith Cells RARE Squamous (<= Few) 06/05/20 20:30 Urine Bacteria Rare /HPF (None Seen) 06/05/20 20:30 Urine Mucus Few Strands 06/05/20 20:30 Ur Microscopic Review INDICATED 06/05/20 20:30 Urine Culture Comments NOT INDICATED 06/05/20 20:30 Nasal Adenovirus (PCR) NOT DETECTED 06/05/20 20:59 Nasal B. parapertussis DNA (PCR) NOT DETECTED 06/05/20 20:59 Nasal Coronavir 229E PCR NOT DETECTED 06/05/20 20:59 Nasal Coronavir HKU1 PCR NOT DETECTED 06/05/20 20:59 Nasal Coronavir NL63 PCR NOT DETECTED 06/05/20 20:59 Nasal Coronavir OC43 PCR NOT DETECTED 06/05/20 20:59 Nasal Enterovir/Rhinovir PCR NOT DETECTED 06/05/20 20:59 Nasal Influenza B PCR NOT DETECTED 06/05/20 20:59 Nasal Influenza A PCR NOT DETECTED 06/05/20 20:59 Nasal Parainfluen 1 PCR NOT DETECTED 06/05/20 20:59 Nasal Parainfluen 2 PCR NOT DETECTED 06/05/20 20:59 Nasal Parainfluen 3 PCR NOT DETECTED 06/05/20 20:59 Nasal Parainfluen 4 PCR NOT DETECTED 06/05/20 20:59 Nasal RSV (PCR) NOT DETECTED 06/05/20 20:59 Nasal B.pertussis DNA PCR NOT DETECTED 06/05/20 20:59 Nasal C.pneumoniae (PCR) NOT DETECTED 06/05/20 20:59 Dre Human Metapneumo PCR NOT DETECTED 06/05/20 20:59 Nasal M.pneumoniae (PCR) NOT DETECTED 06/05/20 20:59 Nasal SARS-CoV-2 (PCR) DETECTED A 06/05/20 20:59 ABX Reporting Has patient been on IV antibiotics over the past 48 hours?: No Current Medications - Current Medications Current Medications: Active Medications Acetaminophen (Acetaminophen 325 Mg Tablet) 650 mg PO Q4HR PRN PRN Reason: Pain 1 to 4 Last Admin: 01/26/21 21:46 Dose: 650 mg Documented by: Albuterol (Albuterol 1 Puff) 2 puffs INH RTQ4H PRN PRN Reason: Wheezing Stop: 06/13/20 08:13 Last Admin: 06/08/20 10:00 Dose: 2 puffs Documented by: Dexamethasone (Dexamethasone 4 Mg/Ml Vial) 6 mg IVP DAILY [facility] Stop: 06/11/20 08:59 Last Admin: 06/09/20 08:38 Dose: 6 mg Documented by: Docusate Sodium (Docusate Sodium 250 Mg Capsule) 250 - 500 mg PO DAILY [facility] Last Admin: 06/09/20 08:39 Dose: Not Given Documented by: Enoxaparin Sodium (Enoxaparin 40 Mg/0.4 Ml Syringe) 40 mg SUBQ DAILY [facility] Last Admin: 06/09/20 08:40 Dose: 40 mg Documented by: Remdesivir 100 mg/ Sodium (Chloride) 100 mls @ 200 mls/hr IV DAILY [facility] Stop: 06/10/20 09:29 Last Infusion: 06/09/20 09:34 Dose: Infused Documented by: Insulin Aspart (Insulin Aspart 300 Unit/3 Ml Pen) 2 - 10 unit SUBQ 0800,1200,1700,2100 [facility]; Protocol Last Admin: 06/09/20 12:10 Dose: 6 unit Documented by: Insulin Aspart (Insulin Aspart 300 Unit/3 Ml Pen) 10 unit SUBQ TIDWM [facility] Insulin Human Isoph/Insulin Regular (Insulin 70/30 Human 300 Unit/3 Ml Vial) 52 unit SUBQ BID [facility] Last Admin: 06/09/20 08:43 Dose: 52 unit Documented by: Lisinopril (Lisinopril 20 Mg Tablet) 20 mg PO DAILY [facility] Last Admin: 06/09/20 08:39 Dose: 20 mg Documented by: Ondansetron HCl (Ondansetron Odt 4 Mg Tablet) 4 mg TL Q6HR PRN PRN Reason: Nausea / Vomiting Ondansetron HCl (Ondansetron 4 Mg/2 Ml Vial) 4 mg IVP Q6HR PRN PRN Reason: Nausea / Vomiting Oxycodone HCl (Oxycodone 5 Mg Tablet) 5 mg PO Q4HR PRN PRN Reason: Pain 5 to 7 Polyethylene Glycol (Polyethylene Glycol 3350 17 Gm Packet) 17 gm PO DAILY [facility] Last Admin: 06/09/20 08:40 Dose: Not Given Documented by: Potassium Chloride (Potassium Chloride 20 Meq Tablet) 20 meq PO DAILYWM [facility] Last Admin: 06/09/20 08:39 Dose: 20 meq Documented by: Senna (Senna 8.6 Mg Tablet) 8.6 - 17.2 mg PO DAILY [facility] Last Admin: 06/09/20 08:39 Dose: Not Given Documented by: Simethicone (Simethicone Chew 80 Mg Tablet) 80 mg PO 0900,1300,1800,2100 [facility] Sodium Chloride (Sodium Chloride Flush 0.9% 10 Ml Syringe) 10 ml IVP PRN PRN PRN Reason: NEEDED PER PROVIDER ORDERS Last Admin: 06/09/20 09:02 Dose: 10 ml Documented by: Sodium Chloride (Sodium Chloride Flush 0.9% 10 Ml Syringe) 10 ml IVP 0100,0900,1700 [facility] Last Admin: 06/09/20 08:49 Dose: 10 ml Documented by: Aspirin 81 mg PO DAILY 03/27/14 Lisinopril 20 mg PO DAILY 03/27/14 Omeprazole [PriLOSEC] 40 mg PO DAILY 03/27/14 Insulin 70/30 Human [Humulin 70-30 Vial] 52 unit SUBQ BID 06/06/20 Alogliptin Benzoate [Alogliptin] 25 mg PO DAILY 06/07/20 Atorvastatin Calcium [Lipitor] 80 mg PO DAILY 06/07/20 Budesonide/Formoterol Fumarate [Symbicort 160-4.5 Mcg Inhaler] 2 puffs PO DAILY 06/07/20 Cholecalciferol [Vitamin D3] 25 mcg PO DAILY 06/07/20 Multivit with Minerals/Lutein [Theratrum Complete 50 Plus Tab] 1 tab PO DAILY 06/07/20
[2020-06-09] MEDS ORDERED: INSULIN ASPART 300 UNIT/3 ML PEN SUBQ SCH (17:00)
[2020-06-09] MEDS: SIMETHICONE CHEW 80 MG TABLET PO SCH ×3 (17:07→22:03)
[2020-06-10] MEDS: SODIUM CHLORIDE FLUSH 0.9% 10 ML SYRINGE IVP SCH ×3 (01:22→17:25)
[2020-06-10 05:00] LABS: BASOPHILS % (AUTO) 0.2 %; EOSINOPHILS % (AUTO) 0.1 %; HGB - HEMOGLOBIN 13.1 g/dL (14.0-18.0); LYMPHOCYTES # (AUTO) 1.1 10^3/uL (1.5-3.5); LYMPHOCYTES % (AUTO) 12.3 %; MEAN CORPUSCULAR HEMOGLOBIN 28.3 pg (27.0-31.0); MEAN CORPUSCULAR HGB CONC 32.6 g/dL (32.0-36.0); MEAN CORPUSCULAR VOLUME 86.8 fL (80.0-94.0); MEAN PLATELET VOLUME 9.1 fL (7.4-11.4); MONOCYTES # (AUTO) 0.6 10^3/uL (0.0-1.0); MONOCYTES % (AUTO) 6.8 %; NEUTROPHILS # (AUTO) 6.9 10^3/uL (1.5-6.6); NEUTROPHILS % (AUTO) 79.6 %; PLT - PLATELET COUNT 244 10^3/uL (130-450); RED BLOOD COUNT 4.63 10^6/uL (4.70-6.10); RED CELL DISTRIBUTION WIDTH 12.7 % (12.0-15.0); WHITE BLOOD COUNT 8.7 x10^3/uL (4.8-10.8)
[2020-06-10 05:03] LABS: CALCIUM 8.4 mg/dL (8.5-10.3); CREATININE 0.8 mg/dL (0.6-1.2)
[2020-06-10] MEDS: INSULIN ASPART 300 UNIT/3 ML PEN SUBQ SCH ×4 (08:57→21:52)
[2020-06-10] MEDS ORDERED: INSULIN 70/30 HUMAN 300 UNIT/3 ML VIAL SUBQ SCH (09:00)
--- NOTE | 2020-06-10 09:24 | XRAY Report ---
PROCEDURE: Chest 1 View X-Ray INDICATIONS: SOB, worsening, covid 19 positive TECHNIQUE: One view of the chest was acquired. COMPARISON: Lung bases on CT abdomen and pelvis 06/05/2020. CXR 05/19/2010. FINDINGS: Surgical changes and devices: Cholecystectomy clips. Lungs and pleura: No pleural effusions or pneumothorax. Bilateral patchy airspace opacity, worse on the left. Low lung volumes. Mediastinum: Mediastinal contours are partially obscured. Grossly similar. Heart size is mostly obs cured. Bones and chest wall: No suspicious bony lesions. Left shoulder DJD. Overlying soft tissues appear unremarkable. IMPRESSION: Bilateral patchy airspace opacity, worse than left lung. Findings in keeping with Covid-19. Low lung volumes. Reviewed by: Mauro Becerra MD on 06/10/2020 9:23 AM PST Approved by: Mauro Becerra MD on 06/10/2020 9:23 AM [facility] Station ID: [id number]
--- NOTE | 2020-06-10 10:07 | CT Report ---
PROCEDURE: HEAD WO INDICATIONS: fall, injury TECHNIQUE: Noncontrast 4.5 mm thick angled axial sections acquired from the foramen magnum to the vertex. For r adiation dose reduction, the following was used: automated exposure control, adjustment of mA and/or kV according to patient size. COMPARISON: 03/28/2014. Correlation is also made with report only from prior head CT 11/24/2010 FINDINGS: Image quality: Excellent. CSF spaces: Basal cisterns are patent. No extra-axial fluid collections. Ventricles are normal in size and shape. Brain: No midline shift. Brain parenchymal volume loss is seen. Chronic small vessel ischemic wang es are seen. No intracranial masses or hemorrhage. Hoang-white matter interface is normal. Skull and face: Calvarium and visualized facial bones are intact, without suspicious lesions. Sinuses: Visualized sinuses and mastoids are clear. IMPRESSION: No significant intracranial abnormality is seen. No intracranial hemorrhage is seen. Age-appropriate brain parenchymal volume loss and chronic small vessel ischemic change can be seen. Reviewed by: Los Roberson MD on 06/10/2020 9:05 AM [facility] Approved by: Los Roberson MD on 06/10/2020 9:05 AM [facility] Station ID: [id number]
[2020-06-10] MEDS: POTASSIUM CHLORIDE 20 MEQ TABLET PO SCH (10:58)
[2020-06-10] MEDS: SIMETHICONE CHEW 80 MG TABLET PO SCH ×4 (11:00→21:49)
[2020-06-10] MEDS: SODIUM CHLORIDE 0.9% IV SCH (11:00)
[2020-06-10] MEDS: REMDESIVIR IV SCH (11:00)
[2020-06-10] MEDS: DEXAMETHASONE 4 MG/ML VIAL IVP SCH (11:04)
[2020-06-10] MEDS: ENOXAPARIN 40 MG/0.4 ML SYRINGE SUBQ SCH (11:07)
[2020-06-10] MEDS: polyethylene glycoL 3350 17 GM PACKET PO SCH (11:09)
[2020-06-10] MEDS: SENNA 8.6 MG TABLET PO SCH (11:09)
[2020-06-10] MEDS: DOCUSATE SODIUM 250 MG CAPSULE PO SCH (11:09)
--- NOTE | 2020-06-10 16:18 | PROVIDER PROGRESS NOTE ---
Assessment/Plan - Problem List (1) Pneumonia due to COVID-19 virus Assessment/Plan: 06/10Patient present respiratory distress in exertion, Oxygen dropped. Patient has no respiratory distress in the rest with 92-93% sats on 1 liter of O2. Will order chest x-ray To monitor COVID-19 virus infection progress which is worsening. Continue Decadron, Lovenox, continue Remdsivir on tomorrow after first 5 days. Patient still needed 1 L oxygen to support he has 92% of oxygen saturation, continue Decadron 6 mg daily 5 days planned, Lovenox 40 mg subcu daily was started, Remdesivir daily for 5 days planned. (2) Hypoxemia This is still present but stable, continue O2 support. We will continue to monitor with pulse oximetry. Adjust his oxygen as needed or hopefully wean to off (3) Type 2 diabetes mellitus 06/10 Patient glucose level down to 72 in the morning, will reduce night insulin and keep daily insulin, pt's daily glucose is still slight high. Continue home insulin schedule, starting slide scale, added 3 times daily NovoLog, patient is on still Decadron (4) Hypertension stable, He is on his JOSHUA inhibitor. (5) Hypokalemia Resolved with supplemented po K Follow BMP daily. (6)fall Patient has a fall when he came back from bathroom, immediately assess pt. he de nies focal neurological deficit, denies other injury, he report his head touch in the ground, he denies loss of Conscious. CT of head was Unremarkable. Patient's glucose level is 72, Will reduce the night insulin. Nurse for fall precaution (5)Orthostatic hypotension Patient Patient has orthostatic hypotension, We will hold his home medication lisinopril,Closely monitor patient for fall precaution, - Current Meds Current Meds: Current Medications Generic Name Dose Route Start Last Admin Trade Name Freq PRN Reason Stop Dose Admin Acetaminophen 650 mg 06/05/20 22:51 06/08/20 21:46 Acetaminophen 325 Mg Tablet PO 650 mg Q4HR PRN Administration Pain 1 to 4 Albuterol 2 puffs 06/06/20 08:14 06/08/20 10:00 Albuterol 1 Puff INH 06/13/20 08:13 2 puffs RTQ4H PRN Administration Wheezing Dexamethasone 6 mg 06/06/20 09:00 06/10/20 11:04 Dexamethasone 4 Mg/Ml Vial IVP 06/14/20 09:01 6 mg DAILY ROSA Administration Docusate Sodium 250 - 500 mg 06/07/20 21:00 06/10/20 11:09 Docusate Sodium 250 Mg Capsule PO Not Given DAILY ROSA Enoxaparin Sodium 40 mg 06/06/20 09:00 06/10/20 11:07 Enoxaparin 40 Mg/0.4 Ml Syringe SUBQ 40 mg DAILY ROSA Administration Insulin Aspart 2 - 10 unit 06/06/20 08:00 06/10/20 11:44 Insulin Aspart 300 Unit/3 Ml Pen SUBQ 4 unit 0800,1200,1700,2100 ROSA Administration Protocol Polyethylene Glycol 17 gm 06/07/20 09:00 06/10/20 11:09 Polyethylene Glycol 3350 17 Gm Packet PO Not Given DAILY ROSA Potassium Chloride 20 meq 06/08/20 08:00 06/10/20 10:58 Potassium Chloride 20 Meq Tablet PO 20 meq DAILYWM ROSA Administration Senna 8.6 - 17.2 mg 06/07/20 21:00 06/10/20 11:09 Senna 8.6 Mg Tablet PO Not Given DAILY ROSA Simethicone 80 mg 06/09/20 16:22 06/10/20 14:18 Simethicone Chew 80 Mg Tablet PO 80 mg 0900,1300,1800,2100 ROSA Administration Sodium Chloride 10 ml 06/05/20 22:38 06/09/20 09:02 Sodium Chloride Flush 0.9% 10 Ml Syringe IVP 10 ml PRN PRN Administration NEEDED PER PROVIDER ORDERS Sodium Chloride 10 ml 06/06/20 01:00 06/10/20 11:07 Sodium Chloride Flush 0.9% 10 Ml Syringe IVP 10 ml 0100,0900,1700 ROSA Administration - Lab Result Fish Bone Diagrams: 06/10/20 04:16 06/10/20 04:16 - Additional Planning My Orders: My Active Orders 06/09/20 16:22 Simethicone [Mylicon] 80 mg PO 0900,1300,1800,2100 06/10/20 08:28 Orthostatic [Vital Signs - Orthostatic] [RC] DAILY 06/10/20 16:15 Chest 1 View X-Ray [XR] Routine 06/11/20 05:00 BMP - BASIC METABOLIC PANEL [CHEM] DAILYLAB CBC - COMP BLD CT W/AUTO DIFF [HEME] DAILYLAB 06/12/20 05:00 BMP - BASIC METABOLIC PANEL [CHEM] DAILYLAB CBC - COMP BLD CT W/AUTO DIFF [HEME] DAILYLAB 06/13/20 05:00 BMP - BASIC METABOLIC PANEL [CHEM] DAILYLAB CBC - COMP BLD CT W/AUTO DIFF [HEME] DAILYLAB 06/14/20 05:00 BMP - BASIC METABOLIC PANEL [CHEM] DAILYLAB CBC - COMP BLD CT W/AUTO DIFF [HEME] DAILYLAB 06/15/20 05:00 BMP - BASIC METABOLIC PANEL [CHEM] DAILYLAB CBC - COMP BLD CT W/AUTO DIFF [HEME] DAILYLAB Subjective - Subjective Patient Reports: Feeling Better Objective Vital Signs: Vital Signs - 24 hr 06/09/20 06/09/20 06/10/20 17:04 21:00 01:18 Temperature 37.1 C 37.0 C 36.9 C Heart Rate [ 77 70 74 Brachial] Respiratory 20 24 20 Rate Blood Pressure 149/66 H [Left Brachial artery] Blood Pressure 141/70 H 152/71 H [Right Brachial artery] O2 Saturation 98 96 93 06/10/20 06/10/20 06/10/20 03:47 08:00 08:03 Temperature 36.9 C 36.6 C 36.6 C Heart Rate [ 78 98 98 Brachial] Respiratory 20 22 22 Rate Blood Pressure 146/69 H 131/63 H 131/63 H [Left Brachial artery] Blood Pressure [Right Brachial artery] O2 Saturation 93 88 L 88 L 06/10/20 10:54 Temperature 37.4 C Heart Rate [ 95 Brachial] Respiratory 92 H Rate Blood Pressure 142/62 H [Left Brachial artery] Blood Pressure [Right Brachial artery] O2 Saturation 27 L Oxygen O2 Source Nasal cannula I&O (Last 24 Hrs): Intake and Output Totals x24h 06/08/20 06/09/20 06/10/20 23:59 23:59 23:59 Intake Total 1200 1560 820 Balance 1200 1560 820 General: Alert, Oriented x3, Cooperative, Mild distress HEENT: Atraumatic Neck: Supple Lymphatic: no adenopathy Neuro: Alert, Non Focal, Oriented Times 3 Cardiovascular: Regular rate, Normal S1, Normal S2 Respiratory: Chest non-tender, No respiratory distress Abdomen: Normal bowel sounds, Soft, No tenderness Extremities: Normal pulses - Results Results: Laboratory Results WBC 8.7 x10^3/uL (4.8-10.8) 06/10/20 04:16 RBC 4.63 10^6/uL (4.70-6.10) L 06/10/20 04:16 Hgb 13.1 g/dL (14.0-18.0) L 06/10/20 04:16 Hct 40.2 % (42.0-52.0) L 06/10/20 04:16 MCV 86.8 fL (80.0-94.0) 06/10/20 04:16 MCH 28.3 pg (27.0-31.0) 06/10/20 04:16 MCHC 32.6 g/dL (32.0-36.0) 06/10/20 04:16 RDW 12.7 % (12.0-15.0) 06/10/20 04:16 Plt Count 244 10^3/uL (130-450) 06/10/20 04:16 MPV 9.1 fL (7.4-11.4) 06/10/20 04:16 Neut # (Auto) 6.9 10^3/uL (1.5-6.6) H 06/10/20 04:16 Lymph # (Auto) 1.1 10^3/uL (1.5-3.5) L 06/10/20 04:16 [place] # (Auto) 0.6 10^3/uL (0.0-1.0) 06/10/20 04:16 Eos # (Auto) 0.0 10^3/uL (0.0-0.7) 06/10/20 04:16 Baso # (Auto) 0.0 10^3/uL (0.0-0.1) 06/10/20 04:16 Absolute Nucleated RBC 0.00 x10^3/uL 06/10/20 04:16 Nucleated RBC % 0.0 /100WBC 06/10/20 04:16 Sodium 136 mmol/L (135-145) 06/10/20 04:16 Potassium 3.6 mmol/L (3.5-5.0) 06/10/20 04:16 Chloride 98 mmol/L (101-111) L 06/10/20 04:16 Carbon Dioxide 29 mmol/L (21-32) 06/10/20 04:16 Anion Gap 9.0 (6-13) 06/10/20 04:16 BUN 20 mg/dL (6-20) 06/10/20 04:16 Creatinine 0.8 mg/dL (0.6-1.2) 06/10/20 04:16 Estimated GFR (MDRD) 94 (>89) 06/10/20 04:16 Glucose 114 mg/dL (70-100) H 06/10/20 04:16 POC Whole Bld Glucose 183 mg/dL (70 - 100) H 06/10/20 10:56 Estimat Average Glucose 223 mg/dL (70-100) H 06/06/20 05:08 Hemoglobin A1c % 9.4 % (4.27-6.07) H 06/06/20 05:08 Calcium 8.4 mg/dL (8.5-10.3) L 06/10/20 04:16 Total Bilirubin 0.9 mg/dL (0.2-1.0) 06/05/20 19:16 AST 32 IU/L (10-42) 06/05/20 19:16 ALT 28 IU/L (10-60) 06/05/20 19:16 Alkaline Phosphatase 86 IU/L (42-121) 06/05/20 19:16 Total Protein 7.0 g/dL (6.7-8.2) 06/05/20 19:16 Albumin 3.5 g/dL (3.2-5.5) 06/05/20 19:16 Globulin 3.5 g/dL (2.1-4.2) 06/05/20 19:16 Albumin/Globulin Ratio 1.0 (1.0-2.2) 06/05/20 19:16 Lipase 32 U/L (22-51) 06/05/20 19:16 Urine Color YELLOW 06/05/20 20:30 Urine Clarity HAZY (CLEAR) 06/05/20 20:30 Urine pH 5.5 PH (5.0-7.5) 06/05/20 20:30 Ur Specific [place] 1.010 (1.002-1.030) 06/05/20 20:30 Urine Protein 30 mg/dL (NEGATIVE) H 06/05/20 20:30 Urine Glucose (UA) 250 mg/dL (NEGATIVE) H 06/05/20 20:30 Urine Ketones 15 mg/dL (NEGATIVE) H 06/05/20 20:30 Urine Occult Blood SMALL (NEGATIVE) H 06/05/20 20:30 Urine Nitrite NEGATIVE (NEGATIVE) 06/05/20 20:30 Urine Bilirubin NEGATIVE (NEGATIVE) 06/05/20 20:30 Urine Urobilinogen 0.2 (NORMAL) E.U./dL (NORMAL) 06/05/20 20:30 Ur Leukocyte Esterase NEGATIVE (NEGATIVE) 06/05/20 20:30 Urine RBC 0-5 /HPF (0-5) 06/05/20 20:30 Urine WBC 0-3 /HPF (0-3) 06/05/20 20:30 Ur Squamous Epith Cells RARE Squamous (<= Few) 06/05/20 20:30 Urine Bacteria Rare /HPF (None Seen) 06/05/20 20:30 Urine Mucus Few Strands 06/05/20 20:30 Ur Microscopic Review INDICATED 06/05/20 20:30 Urine Culture Comments NOT INDICATED 06/05/20 20:30 Nasal Adenovirus (PCR) NOT DETECTED 06/05/20 20:59 Nasal B. parapertussis DNA (PCR) NOT DETECTED 06/05/20 20:59 Nasal Coronavir 229E PCR NOT DETECTED 06/05/20 20:59 Nasal Coronavir HKU1 PCR NOT DETECTED 06/05/20 20:59 Nasal Coronavir NL63 PCR NOT DETECTED 06/05/20 20:59 Nasal Coronavir OC43 PCR NOT DETECTED 06/05/20 20:59 Nasal Enterovir/Rhinovir PCR NOT DETECTED 06/05/20 20:59 Nasal Influenza B PCR NOT DETECTED 06/05/20 20:59 Nasal Influenza A PCR NOT DETECTED 06/05/20 20:59 Nasal Parainfluen 1 PCR NOT DETECTED 06/05/20 20:59 Nasal Parainfluen 2 PCR NOT DETECTED 06/05/20 20:59 Nasal Parainfluen 3 PCR NOT DETECTED 06/05/20 20:59 Nasal Parainfluen 4 PCR NOT DETECTED 06/05/20 20:59 Nasal RSV (PCR) NOT DETECTED 06/05/20 20:59 Nasal B.pertussis DNA PCR NOT DETECTED 06/05/20 20:59 Nasal C.pneumoniae (PCR) NOT DETECTED 06/05/20 20:59 Dre Human Metapneumo PCR NOT DETECTED 06/05/20 20:59 Nasal M.pneumoniae (PCR) NOT DETECTED 06/05/20 20:59 Nasal SARS-CoV-2 (PCR) DETECTED A 06/05/20 20:59 ABX Reporting Has patient been on IV antibiotics over the past 48 hours?: No Current Medications - Current Medications Current Medications: Active Medications Acetaminophen (Acetaminophen 325 Mg Tablet) 650 mg PO Q4HR PRN PRN Reason: Pain 1 to 4 Last Admin: 06/08/20 21:46 Dose: 650 mg Documented by: Albuterol (Albuterol 1 Puff) 2 puffs INH RTQ4H PRN PRN Reason: Wheezing Stop: 06/13/20 08:13 Last Admin: 06/08/20 10:00 Dose: 2 puffs Documented by: Dexamethasone (Dexamethasone 4 Mg/Ml Vial) 6 mg IVP DAILY [facility] Stop: 06/14/20 09:01 Last Admin: 06/10/20 11:04 Dose: 6 mg Documented by: Docusate Sodium (Docusate Sodium 250 Mg Capsule) 250 - 500 mg PO DAILY [facility] Last Admin: 06/10/20 11:09 Dose: Not Given Documented by: Enoxaparin Sodium (Enoxaparin 40 Mg/0.4 Ml Syringe) 40 mg SUBQ DAILY [facility] Last Admin: 06/10/20 11:07 Dose: 40 mg Documented by: Insulin Aspart (Insulin Aspart 300 Unit/3 Ml Pen) 2 - 10 unit SUBQ 0800,1200,1700,2100 [facility]; Protocol Last Admin: 06/10/20 11:44 Dose: 4 unit Documented by: Insulin Human Isoph/Insulin Regular (Insulin 70/30 Human 300 Unit/3 Ml Vial) 20 unit SUBQ QPM [facility] Insulin Human Isoph/Insulin Regular (Insulin 70/30 Human 300 Unit/3 Ml Vial) 50 unit SUBQ DAILY [facility] Ondansetron HCl (Ondansetron Odt 4 Mg Tablet) 4 mg TL Q6HR PRN PRN Reason: Nausea / Vomiting Ondansetron HCl (Ondansetron 4 Mg/2 Ml Vial) 4 mg IVP Q6HR PRN PRN Reason: Nausea / Vomiting Oxycodone HCl (Oxycodone 5 Mg Tablet) 5 mg PO Q4HR PRN PRN Reason: Pain 5 to 7 Polyethylene Glycol (Polyethylene Glycol 3350 17 Gm Packet) 17 gm PO DAILY [facility] Last Admin: 06/10/20 11:09 Dose: Not Given Documented by: Potassium Chloride (Potassium Chloride 20 Meq Tablet) 20 meq PO DAILYWM [facility] Last Admin: 06/10/20 10:58 Dose: 20 meq Documented by: Senna (Senna 8.6 Mg Tablet) 8.6 - 17.2 mg PO DAILY [facility] Last Admin: 06/10/20 11:09 Dose: Not Given Documented by: Simethicone (Simethicone Chew 80 Mg Tablet) 80 mg PO 0900,1300,1800,2100 [facility] Last Admin: 06/10/20 14:18 Dose: 80 mg Documented by: Sodium Chloride (Sodium Chloride Flush 0.9% 10 Ml Syringe) 10 ml IVP PRN PRN PRN Reason: NEEDED PER PROVIDER ORDERS Last Admin: 06/09/20 09:02 Dose: 10 ml Documented by: Sodium Chloride (Sodium Chloride Flush 0.9% 10 Ml Syringe) 10 ml IVP 0100,0900,1700 [facility] Last Admin: 06/10/20 11:07 Dose: 10 ml Documented by: Aspirin 81 mg PO DAILY 03/27/14 Lisinopril 20 mg PO DAILY 03/27/14 Omeprazole [PriLOSEC] 40 mg PO DAILY 03/27/14 Insulin 70/30 Human [Humulin 70-30 Vial] 52 unit SUBQ BID 06/06/20 Alogliptin Benzoate [Alogliptin] 25 mg PO DAILY 06/07/20 Atorvastatin Calcium [Lipitor] 80 mg PO DAILY 06/07/20 Budesonide/Formoterol Fumarate [Symbicort 160-4.5 Mcg Inhaler] 2 puffs PO DAILY 06/07/20 Cholecalciferol [Vitamin D3] 25 mcg PO DAILY 06/07/20 Multivit with Minerals/Lutein [Theratrum Complete 50 Plus Tab] 1 tab PO DAILY 06/07/20
[2020-06-10] MEDS: ACETAMINOPHEN 325 MG TABLET PO PRN (17:25)
[2020-06-10] MEDS: INSULIN 70/30 HUMAN 300 UNIT/3 ML VIAL SUBQ SCH (21:46)
[2020-06-10] MEDS: cefTRIAXone 1 GM in SODIUM CHLORIDE 0.9% MINIBAG 100 ML IV SCH (21:54)
[2020-06-10] MEDS: AZITHROMYCIN INJ 500 MG in SODIUM CHLORIDE 0.9% 250 ML IV SCH (22:48)
[2020-06-11] MEDS: SODIUM CHLORIDE FLUSH 0.9% 10 ML SYRINGE IVP SCH ×4 (00:11→23:59)
[2020-06-11] MEDS ORDERED: INSULIN REGULAR HUMAN 300 UNIT/3 ML VIAL SUBQ ONE (00:48)
[2020-06-11] MEDS: ACETAMINOPHEN 325 MG TABLET PO PRN (05:59)
[2020-06-11 06:06] LABS: BASOPHILS % (AUTO) 0.1 %; EOSINOPHILS % (AUTO) 0.1 %; HGB - HEMOGLOBIN 13.1 g/dL (14.0-18.0); LYMPHOCYTES # (AUTO) 0.9 10^3/uL (1.5-3.5); LYMPHOCYTES % (AUTO) 9.6 %; MEAN CORPUSCULAR HEMOGLOBIN 28.3 pg (27.0-31.0); MEAN CORPUSCULAR HGB CONC 32.4 g/dL (32.0-36.0); MEAN CORPUSCULAR VOLUME 87.3 fL (80.0-94.0); MEAN PLATELET VOLUME 9.1 fL (7.4-11.4); MONOCYTES # (AUTO) 0.6 10^3/uL (0.0-1.0); MONOCYTES % (AUTO) 6.5 %; NEUTROPHILS # (AUTO) 7.4 10^3/uL (1.5-6.6); NEUTROPHILS % (AUTO) 82.6 %; PLT - PLATELET COUNT 284 10^3/uL (130-450); RED BLOOD COUNT 4.63 10^6/uL (4.70-6.10)
[2020-06-11 06:16] LABS: CALCIUM 8.7 mg/dL (8.5-10.3); CREATININE 0.9 mg/dL (0.6-1.2)
[2020-06-11] MEDS ORDERED: INSULIN 70/30 HUMAN 300 UNIT/3 ML VIAL SUBQ SCH ×2 (08:00→09:00)
[2020-06-11] MEDS ORDERED: cefTRIAXone 1 GM in SODIUM CHLORIDE 0.9% MINIBAG 100 ML IV SCH (09:00)
[2020-06-11] MEDS ORDERED: AZITHROMYCIN INJ 500 MG in SODIUM CHLORIDE 0.9% 250 ML IV SCH (09:00)
[2020-06-11] MEDS: INSULIN ASPART 300 UNIT/3 ML PEN SUBQ SCH ×7 (09:05→21:48)
[2020-06-11] MEDS: ENOXAPARIN 40 MG/0.4 ML SYRINGE SUBQ SCH (09:10)
[2020-06-11] MEDS: polyethylene glycoL 3350 17 GM PACKET PO SCH (09:11)
[2020-06-11] MEDS: POTASSIUM CHLORIDE 20 MEQ TABLET PO SCH (09:11)
[2020-06-11] MEDS: DOCUSATE SODIUM 250 MG CAPSULE PO SCH (09:11)
[2020-06-11] MEDS: SENNA 8.6 MG TABLET PO SCH (09:11)
[2020-06-11] MEDS: SIMETHICONE CHEW 80 MG TABLET PO SCH ×4 (09:11→21:49)
[2020-06-11] MEDS: DEXAMETHASONE 4 MG/ML VIAL IVP SCH (09:12)
[2020-06-11] MEDS: INSULIN 70/30 HUMAN 300 UNIT/3 ML VIAL SUBQ SCH ×2 (09:12→21:49)
[2020-06-11] MEDS: ALBUTEROL 1 PUFF INH PRN (10:02)
--- NOTE | 2020-06-11 13:19 | PROVIDER PROGRESS NOTE ---
Assessment/Plan - Problem List (1) Pneumonia due to COVID-19 virus Assessment/Plan: 06/11 X-rays show worsening, Patient has 93% sat on 1 L oxygen, Patient has no respiratory distress on rest with 1 L oxygen, But patient show shortness breathing on exertion. Last night medical provider also added antibiotics To treat bacterial pneumonia secondary to virus infection pneumonia. Continue Decadron, continue Lovenox, Continue supplemental oxygen as needed. 06/10Patient present respiratory distress in exertion, Oxygen dropped. Patient has no respiratory distress in the rest with 92-93% sats on 1 liter of O2. Will order chest x-ray To monitor COVID-19 virus infection progress which is worsening. Continue Decadron, Lovenox, continue Remdsivir on tomorrow after first 5 days. Patient still needed 1 L oxygen to support he has 92% of oxygen saturation, continue Decadron 6 mg daily 5 days planned, Lovenox 40 mg subcu daily was started, Remdesivir daily for 5 days planned. (2) Hypoxemia This is still present but stable, continue O2 support. We will continue to monitor with pulse oximetry. Adjust his oxygen as needed or hopefully wean to off (3) Type 2 diabetes mellitus 06/11 We will reduce the night insulin, and increase daytime insulin because patient has elevated glucose level in the daytime. 06/10 Patient glucose level down to 72 in the morning, will reduce night insulin and keep daily insulin, pt's daily glucose is still slight high. Continue home insulin schedule, starting slide scale, added 3 times daily NovoLog, patient is on still Decadron (4) Hypertension stable, He is on his JOSHUA inhibitor. (5) Hypokalemia Resolved with supplemented po K Follow BMP daily. (6)fall Patient has a fall when he came back from bathroom, immediately assess pt. he de nies focal neurological deficit, denies other injury, he report his head touch in the ground, he denies loss of Conscious. CT of head was Unremarkable. Patient's glucose level is 72, Will reduce the night insulin. Nurse for fall precaution (7)Orthostatic hypotension 06/11 improved. Continue hold patient home blood pressure medicine, fall precaution, educate pt for prevention of fall. Patient Patient has orthostatic hypotension, We will hold his home medication lisinopril,Closely monitor patient for fall precaution, - Current Meds Current Meds: Current Medications Generic Name Dose Route Start Last Admin Trade Name Freq PRN Reason Stop Dose Admin Acetaminophen 650 mg 06/05/20 22:51 06/11/20 05:59 Acetaminophen 325 Mg Tablet PO 650 mg Q4HR PRN Administration Pain 1 to 4 Albuterol 2 puffs 06/06/20 08:14 06/11/20 10:02 Albuterol 1 Puff INH 06/13/20 08:13 2 puffs RTQ4H PRN Administration Wheezing Dexamethasone 6 mg 06/06/20 09:00 06/11/20 09:12 Dexamethasone 4 Mg/Ml Vial IVP 06/14/20 09:01 6 mg DAILY ROSA Administration Docusate Sodium 250 - 500 mg 06/07/20 21:00 06/11/20 09:11 Docusate Sodium 250 Mg Capsule PO 250 mg DAILY ROSA Administration Enoxaparin Sodium 40 mg 06/06/20 09:00 06/11/20 09:10 Enoxaparin 40 Mg/0.4 Ml Syringe SUBQ 40 mg DAILY ROSA Administration Azithromycin 500 mg/ Sodium 250 mls @ 250 mls/hr 06/10/20 21:30 06/11/20 00:11 Chloride IV 06/12/20 22:29 Infused Q24H ROSA Infusion Ceftriaxone Sodium 1 gm/ 100 mls @ 200 mls/hr 06/10/20 21:00 06/10/20 22:46 Sodium Chloride IV Infused Q24H ROSA Infusion Insulin Aspart 2 - 10 unit 06/06/20 08:00 06/11/20 12:38 Insulin Aspart 300 Unit/3 Ml Pen SUBQ 6 unit 0800,1200,1700,2100 ROSA Administration Protocol Insulin Aspart 5 unit 06/11/20 08:00 06/11/20 12:39 Insulin Aspart 300 Unit/3 Ml Pen SUBQ 5 unit TIDWM ROSA Administration Insulin Human Isoph/Insulin Regular 20 unit 06/10/20 21:00 06/10/20 21:46 Insulin 70/30 Human 300 Unit/3 Ml Vial SUBQ 20 unit QPM ROSA Administration Insulin Human Isoph/Insulin Regular 60 unit 06/11/20 09:00 06/11/20 09:12 Insulin 70/30 Human 300 Unit/3 Ml Vial SUBQ 60 unit DAILY ROSA Administration Polyethylene Glycol 17 gm 06/07/20 09:00 06/11/20 09:11 Polyethylene Glycol 3350 17 Gm Packet PO 17 gm DAILY ROSA Administration Potassium Chloride 20 meq 06/08/20 08:00 06/11/20 09:11 Potassium Chloride 20 Meq Tablet PO 20 meq DAILYWM ROSA Administration Senna 8.6 - 17.2 mg 06/07/20 21:00 06/11/20 09:11 Senna 8.6 Mg Tablet PO 8.6 mg DAILY ROSA Administration Simethicone 80 mg 06/09/20 16:22 06/11/20 12:38 Simethicone Chew 80 Mg Tablet PO 80 mg 0900,1300,1800,2100 ROSA Administration Sodium Chloride 10 ml 06/05/20 22:38 06/09/20 09:02 Sodium Chloride Flush 0.9% 10 Ml Syringe IVP 10 ml PRN PRN Administration NEEDED PER PROVIDER ORDERS Sodium Chloride 10 ml 06/06/20 01:00 06/11/20 09:12 Sodium Chloride Flush 0.9% 10 Ml Syringe IVP 10 ml 0100,0900,1700 ROSA Administration - Lab Result Fish Bone Diagrams: 06/11/20 05:34 06/11/20 05:34 - Additional Planning My Orders: My Active Orders 06/10/20 16:52 Miscellaenous Nursing Order [RC] QSHIFT 06/11/20 08:00 Insulin Aspart [NovoLOG] 5 unit SUBQ TIDWM 06/11/20 09:00 Insulin 70/30 Human [Humulin 70-30 Vial] 60 unit SUBQ DAILY 06/12/20 05:00 BMP - BASIC METABOLIC PANEL [CHEM] DAILYLAB CBC - COMP BLD CT W/AUTO DIFF [HEME] DAILYLAB 06/13/20 05:00 BMP - BASIC METABOLIC PANEL [CHEM] DAILYLAB CBC - COMP BLD CT W/AUTO DIFF [HEME] DAILYLAB 06/14/20 05:00 BMP - BASIC METABOLIC PANEL [CHEM] DAILYLAB CBC - COMP BLD CT W/AUTO DIFF [HEME] DAILYLAB 06/15/20 05:00 BMP - BASIC METABOLIC PANEL [CHEM] DAILYLAB CBC - COMP BLD CT W/AUTO DIFF [HEME] DAILYLAB Subjective - Subjective Patient Reports: Feeling Better Objective Vital Signs: Vital Signs - 24 hr 06/10/20 06/10/20 06/10/20 16:38 21:00 21:10 Temperature 37.1 C 36.6 C Heart Rate 85 Heart Rate [ 85 77 Brachial] Respiratory 20 24 20 Rate Blood Pressure 130/60 [Left Brachial artery] Blood Pressure 158/79 H [Right Brachial artery] O2 Saturation 96 97 06/11/20 06/11/20 06/11/20 00:17 00:20 03:28 Temperature 36.7 C 36.9 C Heart Rate Heart Rate [ 81 87 Brachial] Respiratory 20 20 Rate Blood Pressure 157/77 H [Left Brachial artery] Blood Pressure 141/68 H [Right Brachial artery] O2 Saturation 92 94 92 06/11/20 06/11/20 06/11/20 07:03 08:05 10:02 Temperature 36.8 C Heart Rate 83 Heart Rate [ 76 Brachial] Respiratory 18 24 Rate Blood Pressure 142/72 H [Left Brachial artery] Blood Pressure [Right Brachial artery] O2 Saturation 93 99 06/11/20 06/11/20 10:44 12:17 Temperature 36.8 C 37.1 C Heart Rate 83 Heart Rate [ 90 Brachial] Respiratory 24 18 Rate Blood Pressure 153/66 H [Left Brachial artery] Blood Pressure [Right Brachial artery] O2 Saturation 96 93 Oxygen O2 Source Nasal cannula I&O (Last 24 Hrs): Intake and Output Totals x24h 06/09/20 06/10/20 06/11/20 23:59 23:59 23:59 Intake Total 1560 1570 970 Balance 1560 1570 970 General: Alert, Oriented x3, Cooperative, No acute distress HEENT: Atraumatic Neck: Supple Lymphatic: no adenopathy Neuro: Alert, Non Focal, Oriented Times 3 Cardiovascular: Regular rate, Normal S1, Normal S2 Respiratory: Chest non-tender, No respiratory distress Abdomen: Normal bowel sounds, Soft, No tenderness Extremities: Normal pulses - Results Results: Laboratory Results WBC 9.0 x10^3/uL (4.8-10.8) 06/11/20 05:34 RBC 4.63 10^6/uL (4.70-6.10) L 06/11/20 05:34 Hgb 13.1 g/dL (14.0-18.0) L 06/11/20 05:34 Hct 40.4 % (42.0-52.0) L 06/11/20 05:34 MCV 87.3 fL (80.0-94.0) 06/11/20 05:34 MCH 28.3 pg (27.0-31.0) 06/11/20 05:34 MCHC 32.4 g/dL (32.0-36.0) 06/11/20 05:34 RDW 13.0 % (12.0-15.0) 06/11/20 05:34 Plt Count 284 10^3/uL (130-450) 06/11/20 05:34 MPV 9.1 fL (7.4-11.4) 06/11/20 05:34 Neut # (Auto) 7.4 10^3/uL (1.5-6.6) H 06/11/20 05:34 Lymph # (Auto) 0.9 10^3/uL (1.5-3.5) L 06/11/20 05:34 [place] # (Auto) 0.6 10^3/uL (0.0-1.0) 06/11/20 05:34 Eos # (Auto) 0.0 10^3/uL (0.0-0.7) 06/11/20 05:34 Baso # (Auto) 0.0 10^3/uL (0.0-0.1) 06/11/20 05:34 Absolute Nucleated RBC 0.00 x10^3/uL 06/11/20 05:34 Nucleated RBC % 0.0 /100WBC 06/11/20 05:34 Sodium 137 mmol/L (135-145) 06/11/20 05:34 Potassium 4.3 mmol/L (3.5-5.0) 06/11/20 05:34 Chloride 98 mmol/L (101-111) L 06/11/20 05:34 Carbon Dioxide 29 mmol/L (21-32) 06/11/20 05:34 Anion Gap 10.0 (6-13) 06/11/20 05:34 BUN 24 mg/dL (6-20) H 06/11/20 05:34 Creatinine 0.9 mg/dL (0.6-1.2) 06/11/20 05:34 Estimated GFR (MDRD) 82 (>89) L 06/11/20 05:34 Glucose 173 mg/dL (70-100) H 06/11/20 05:34 POC Whole Bld Glucose 257 mg/dL (70 - 100) H 06/11/20 12:16 Estimat Average Glucose 223 mg/dL (70-100) H 06/06/20 05:08 Hemoglobin A1c % 9.4 % (4.27-6.07) H 06/06/20 05:08 Calcium 8.7 mg/dL (8.5-10.3) 06/11/20 05:34 Total Bilirubin 0.9 mg/dL (0.2-1.0) 06/05/20 19:16 AST 32 IU/L (10-42) 06/05/20 19:16 ALT 28 IU/L (10-60) 06/05/20 19:16 Alkaline Phosphatase 86 IU/L (42-121) 06/05/20 19:16 Total Protein 7.0 g/dL (6.7-8.2) 06/05/20 19:16 Albumin 3.5 g/dL (3.2-5.5) 06/05/20 19:16 Globulin 3.5 g/dL (2.1-4.2) 06/05/20 19:16 Albumin/Globulin Ratio 1.0 (1.0-2.2) 06/05/20 19:16 Lipase 32 U/L (22-51) 06/05/20 19:16 Urine Color YELLOW 06/05/20 20:30 Urine Clarity HAZY (CLEAR) 06/05/20 20:30 Urine pH 5.5 PH (5.0-7.5) 06/05/20 20:30 Ur Specific [place] 1.010 (1.002-1.030) 06/05/20 20:30 Urine Protein 30 mg/dL (NEGATIVE) H 06/05/20 20:30 Urine Glucose (UA) 250 mg/dL (NEGATIVE) H 06/05/20 20:30 Urine Ketones 15 mg/dL (NEGATIVE) H 06/05/20 20:30 Urine Occult Blood SMALL (NEGATIVE) H 06/05/20 20:30 Urine Nitrite NEGATIVE (NEGATIVE) 06/05/20 20:30 Urine Bilirubin NEGATIVE (NEGATIVE) 06/05/20 20:30 Urine Urobilinogen 0.2 (NORMAL) E.U./dL (NORMAL) 06/05/20 20:30 Ur Leukocyte Esterase NEGATIVE (NEGATIVE) 06/05/20 20:30 Urine RBC 0-5 /HPF (0-5) 06/05/20 20:30 Urine WBC 0-3 /HPF (0-3) 06/05/20 20:30 Ur Squamous Epith Cells RARE Squamous (<= Few) 06/05/20 20:30 Urine Bacteria Rare /HPF (None Seen) 06/05/20 20:30 Urine Mucus Few Strands 06/05/20 20:30 Ur Microscopic Review INDICATED 06/05/20 20:30 Urine Culture Comments NOT INDICATED 06/05/20 20:30 Nasal Adenovirus (PCR) NOT DETECTED 06/05/20 20:59 Nasal B. parapertussis DNA (PCR) NOT DETECTED 06/05/20 20:59 Nasal Coronavir 229E PCR NOT DETECTED 06/05/20 20:59 Nasal Coronavir HKU1 PCR NOT DETECTED 06/05/20 20:59 Nasal Coronavir NL63 PCR NOT DETECTED 06/05/20 20:59 Nasal Coronavir OC43 PCR NOT DETECTED 06/05/20 20:59 Nasal Enterovir/Rhinovir PCR NOT DETECTED 06/05/20 20:59 Nasal Influenza B PCR NOT DETECTED 06/05/20 20:59 Nasal Influenza A PCR NOT DETECTED 06/05/20 20:59 Nasal Parainfluen 1 PCR NOT DETECTED 06/05/20 20:59 Nasal Parainfluen 2 PCR NOT DETECTED 06/05/20 20:59 Nasal Parainfluen 3 PCR NOT DETECTED 06/05/20 20:59 Nasal Parainfluen 4 PCR NOT DETECTED 06/05/20 20:59 Nasal RSV (PCR) NOT DETECTED 06/05/20 20:59 Nasal B.pertussis DNA PCR NOT DETECTED 06/05/20 20:59 Nasal C.pneumoniae (PCR) NOT DETECTED 06/05/20 20:59 Dre Human Metapneumo PCR NOT DETECTED 06/05/20 20:59 Nasal M.pneumoniae (PCR) NOT DETECTED 06/05/20 20:59 Nasal SARS-CoV-2 (PCR) DETECTED A 06/05/20 20:59 ABX Reporting Has patient been on IV antibiotics over the past 48 hours?: Yes Current Medications - Current Medications Current Medications: Active Medications Acetaminophen (Acetaminophen 325 Mg Tablet) 650 mg PO Q4HR PRN PRN Reason: Pain 1 to 4 Last Admin: 06/11/20 05:59 Dose: 650 mg Documented by: Albuterol (Albuterol 1 Puff) 2 puffs INH RTQ4H PRN PRN Reason: Wheezing Stop: 06/13/20 08:13 Last Admin: 06/11/20 10:02 Dose: 2 puffs Documented by: Dexamethasone (Dexamethasone 4 Mg/Ml Vial) 6 mg IVP DAILY [facility] Stop: 06/14/20 09:01 Last Admin: 06/11/20 09:12 Dose: 6 mg Documented by: Docusate Sodium (Docusate Sodium 250 Mg Capsule) 250 - 500 mg PO DAILY [facility] Last Admin: 06/11/20 09:11 Dose: 250 mg Documented by: Enoxaparin Sodium (Enoxaparin 40 Mg/0.4 Ml Syringe) 40 mg SUBQ DAILY [facility] Last Admin: 06/11/20 09:10 Dose: 40 mg Documented by: Azithromycin 500 mg/ Sodium (Chloride) 250 mls @ 250 mls/hr IV Q24H [facility] Stop: 06/12/20 22:29 Last Infusion: 06/11/20 00:11 Dose: Infused Documented by: Ceftriaxone Sodium 1 gm/ (Sodium Chloride) 100 mls @ 200 mls/hr IV Q24H [facility] Last Infusion: 06/10/20 22:46 Dose: Infused Documented by: Insulin Aspart (Insulin Aspart 300 Unit/3 Ml Pen) 2 - 10 unit SUBQ 0800,1200,1700,2100 [facility]; Protocol Last Admin: 06/11/20 12:38 Dose: 6 unit Documented by: Insulin Aspart (Insulin Aspart 300 Unit/3 Ml Pen) 5 unit SUBQ TIDWM [facility] Last Admin: 06/11/20 12:39 Dose: 5 unit Documented by: Insulin Human Isoph/Insulin Regular (Insulin 70/30 Human 300 Unit/3 Ml Vial) 20 unit SUBQ QPM [facility] Last Admin: 06/10/20 21:46 Dose: 20 unit Documented by: Insulin Human Isoph/Insulin Regular (Insulin 70/30 Human 300 Unit/3 Ml Vial) 60 unit SUBQ DAILY [facility] Last Admin: 06/11/20 09:12 Dose: 60 unit Documented by: Ondansetron HCl (Ondansetron Odt 4 Mg Tablet) 4 mg TL Q6HR PRN PRN Reason: Nausea / Vomiting Ondansetron HCl (Ondansetron 4 Mg/2 Ml Vial) 4 mg IVP Q6HR PRN PRN Reason: Nausea / Vomiting Oxycodone HCl (Oxycodone 5 Mg Tablet) 5 mg PO Q4HR PRN PRN Reason: Pain 5 to 7 Polyethylene Glycol (Polyethylene Glycol 3350 17 Gm Packet) 17 gm PO DAILY [facility] Last Admin: 06/11/20 09:11 Dose: 17 gm Documented by: Potassium Chloride (Potassium Chloride 20 Meq Tablet) 20 meq PO DAILYWM [facility] Last Admin: 06/11/20 09:11 Dose: 20 meq Documented by: Senna (Senna 8.6 Mg Tablet) 8.6 - 17.2 mg PO DAILY [facility] Last Admin: 06/11/20 09:11 Dose: 8.6 mg Documented by: Simethicone (Simethicone Chew 80 Mg Tablet) 80 mg PO 0900,1300,1800,2100 [facility] Last Admin: 06/11/20 12:38 Dose: 80 mg Documented by: Sodium Chloride (Sodium Chloride Flush 0.9% 10 Ml Syringe) 10 ml IVP PRN PRN PRN Reason: NEEDED PER PROVIDER ORDERS Last Admin: 06/09/20 09:02 Dose: 10 ml Documented by: Sodium Chloride (Sodium Chloride Flush 0.9% 10 Ml Syringe) 10 ml IVP 0100,0900,1700 [facility] Last Admin: 06/11/20 09:12 Dose: 10 ml Documented by: Aspirin 81 mg PO DAILY 03/27/14 Lisinopril 20 mg PO DAILY 03/27/14 Omeprazole [PriLOSEC] 40 mg PO DAILY 03/27/14 Insulin 70/30 Human [Humulin 70-30 Vial] 52 unit SUBQ BID 06/06/20 Alogliptin Benzoate [Alogliptin] 25 mg PO DAILY 06/07/20 Atorvastatin Calcium [Lipitor] 80 mg PO DAILY 06/07/20 Budesonide/Formoterol Fumarate [Symbicort 160-4.5 Mcg Inhaler] 2 puffs PO DAILY 06/07/20 Cholecalciferol [Vitamin D3] 25 mcg PO DAILY 06/07/20 Multivit with Minerals/Lutein [Theratrum Complete 50 Plus Tab] 1 tab PO DAILY 06/07/20
[2020-06-11] MEDS: SACCHAROMYCES BOULARDII 250 MG CAPSULE PO SCH (16:40)
[2020-06-11] MEDS: cefTRIAXone 1 GM in SODIUM CHLORIDE 0.9% MINIBAG 100 ML IV SCH (21:44)
[2020-06-11] MEDS: AZITHROMYCIN INJ 500 MG in SODIUM CHLORIDE 0.9% 250 ML IV SCH (21:51)
[2020-06-12 05:25] LABS: BASOPHILS % (AUTO) 0.2 %; EOSINOPHILS % (AUTO) 0.1 %; HGB - HEMOGLOBIN 13.1 g/dL (14.0-18.0); LYMPHOCYTES # (AUTO) 1.1 10^3/uL (1.5-3.5); LYMPHOCYTES % (AUTO) 9.6 %; MEAN CORPUSCULAR HEMOGLOBIN 28.2 pg (27.0-31.0); MEAN CORPUSCULAR HGB CONC 32.5 g/dL (32.0-36.0); MEAN CORPUSCULAR VOLUME 86.7 fL (80.0-94.0); MONOCYTES # (AUTO) 0.9 10^3/uL (0.0-1.0); MONOCYTES % (AUTO) 7.4 %; NEUTROPHILS # (AUTO) 9.5 10^3/uL (1.5-6.6); NEUTROPHILS % (AUTO) 81.5 %; PLT - PLATELET COUNT 292 10^3/uL (130-450); RED BLOOD COUNT 4.65 10^6/uL (4.70-6.10); WHITE BLOOD COUNT 11.7 x10^3/uL (4.8-10.8)
[2020-06-12 05:35] LABS: CALCIUM 8.8 mg/dL (8.5-10.3); CREATININE 0.7 mg/dL (0.6-1.2)
[2020-06-12] MEDS: INSULIN ASPART 300 UNIT/3 ML PEN SUBQ SCH ×7 (08:43→21:57)
[2020-06-12] MEDS: ACETAMINOPHEN 325 MG TABLET PO PRN ×2 (08:48→13:43)
[2020-06-12] MEDS: POTASSIUM CHLORIDE 20 MEQ TABLET PO SCH (08:50)
[2020-06-12] MEDS: SACCHAROMYCES BOULARDII 250 MG CAPSULE PO SCH ×2 (08:50→17:05)
[2020-06-12] MEDS: DEXAMETHASONE 4 MG/ML VIAL IVP SCH (08:56)
[2020-06-12] MEDS: DOCUSATE SODIUM 250 MG CAPSULE PO SCH (08:56)
[2020-06-12] MEDS: SENNA 8.6 MG TABLET PO SCH (08:58)
[2020-06-12] MEDS: ENOXAPARIN 40 MG/0.4 ML SYRINGE SUBQ SCH (08:58)
[2020-06-12] MEDS: SIMETHICONE CHEW 80 MG TABLET PO SCH ×4 (08:58→21:53)
[2020-06-12] MEDS: polyethylene glycoL 3350 17 GM PACKET PO SCH (08:59)
[2020-06-12] MEDS: SODIUM CHLORIDE FLUSH 0.9% 10 ML SYRINGE IVP SCH ×2 (08:59→17:05)
[2020-06-12] MEDS: INSULIN 70/30 HUMAN 300 UNIT/3 ML VIAL SUBQ SCH ×2 (09:00→21:53)
--- NOTE | 2020-06-12 17:05 | PROVIDER PROGRESS NOTE ---
Assessment/Plan - Problem List (1) Acute respiratory failure with hypoxia Assessment/Plan: Requiring supplemental oxygen. Cont to treat the underlying problem. Cont O2 supplemental (2) Pneumonia due to COVID-19 virus Assessment/Plan: Over the previous 2 days he had worsening on his chest x-ray, more of a cough and required [place] O2 supplemental. Decadron continues. He finished remdesivir. Continue with supplemental oxygen, weaning down to room air when possible. He remains in infectious isolation (3) HCAP (healthcare-associated pneumonia) Assessment/Plan: When his saturations worsen 2 days ago, the chest x-ray showed a worsening pneumonia. Decadron was continued for the Covid pneumonia but he was alsoEmpiric antibio tics for bacterial pneumonia. Continue empiric IV antibiotics, pulmonary toilet and supplemental oxygen on broadened (4) Fall during current hospitalization Assessment/Plan: Yesterday he had a fall in his room when walking from bathroom to his bed. He did hit the side of the head. A CT of the head was done that showed no trauma. Fall precautions are ordered. Etiology appears to be orthostasis and orthostatic vital sign checks are ordered. Today he is still 40 mmHg orthostatic. We will give a fluid bolus and adjust his blood pressure meds (5) Orthostatic hypotension Assessment/Plan: He still has 40mmHg orthostatic blood pressure drop. We will give a fluid bolus and adjust his blood pressure meds. Check orthostatic vital signs every shift (6) Hypertension Assessment/Plan: Blood pressure is controlled on his home med (7) Type 2 diabetes mellitus Assessment/Plan: The reconciled home medication list said he was on long-acting insulin 52 units subcu twice daily. His daughter who is a nurse here said he is not probably taking 52 units twice a day. When this dose was used here he developed multi craft maintenance technician hypoglycemia several days in a row. His day and evening glucoses are in the 200-300 range and therefore he has daytime long acting insulin is 62U but nighttime is only 20 unit (8) Frontal lobe dementia Assessment/Plan: His daughter who is a nurse here, gave us additional history that he was diagnosed with dementia 2 years ago. He had cognitive evaluation by OT done yesterday and scored 22/30, this indicates mild dementia. There have been no behavioral disturbances while here - Current Meds Current Meds: Current Medications Generic Name Dose Route Start Last Admin Trade Name Adalbertoq PRN Reason Stop Dose Admin Acetaminophen 650 mg 06/05/20 22:51 06/12/20 13:43 Acetaminophen 325 Mg Tablet PO 650 mg Q4HR PRN Administration Pain 1 to 4 Albuterol 2 puffs 06/06/20 08:14 06/11/20 10:02 Albuterol 1 Puff INH 06/13/20 08:13 2 puffs RTQ4H PRN Administration Wheezing Dexamethasone 6 mg 06/06/20 09:00 06/12/20 08:56 Dexamethasone 4 Mg/Ml Vial IVP 06/14/20 09:01 6 mg DAILY ROSA Administration Docusate Sodium 250 - 500 mg 06/07/20 21:00 06/12/20 08:56 Docusate Sodium 250 Mg Capsule PO 250 mg DAILY ROSA Administration Enoxaparin Sodium 40 mg 06/06/20 09:00 06/12/20 08:58 Enoxaparin 40 Mg/0.4 Ml Syringe SUBQ 40 mg DAILY ROSA Administration Azithromycin 500 mg/ Sodium 250 mls @ 250 mls/hr 06/10/20 21:30 06/11/20 23:31 Chloride IV 06/12/20 22:29 Infused Q24H [facility] Infusion Insulin Aspart 2 - 10 unit 06/06/20 08:00 06/12/20 12:21 Insulin Aspart 300 Unit/3 Ml Pen SUBQ 4 unit 0800,1200,1700,2100 [facility] Administration Protocol Insulin Aspart 5 unit 06/11/20 08:00 06/12/20 12:27 Insulin Aspart 300 Unit/3 Ml Pen SUBQ 5 unit TIDWM ROSA Administration Insulin Human Isoph/Insulin Regular 20 unit 06/10/20 21:00 06/11/20 21:49 Insulin 70/30 Human 300 Unit/3 Ml Vial SUBQ 20 unit QPM ROSA Administration Insulin Human Isoph/Insulin Regular 60 unit 06/11/20 09:00 06/12/20 09:00 Insulin 70/30 Human 300 Unit/3 Ml Vial SUBQ 60 unit DAILY ROSA Administration Polyethylene Glycol 17 gm 06/07/20 09:00 06/12/20 08:59 Polyethylene Glycol 3350 17 Gm Packet PO 17 gm DAILY ROSA Administration Potassium Chloride 20 meq 06/08/20 08:00 06/12/20 08:50 Potassium Chloride 20 Meq Tablet PO 20 meq DAILYWM ROSA Administration Saccharomyces Boulardii 250 mg 06/11/20 17:00 06/12/20 08:50 Saccharomyces Boulardii 250 Mg Capsule PO 250 mg BIDWM ROSA Administration Senna 8.6 - 17.2 mg 06/07/20 21:00 06/12/20 08:58 Senna 8.6 Mg Tablet PO 8.6 mg DAILY [facility] Administration Simethicone 80 mg 06/09/20 16:22 06/12/20 13:43 Simethicone Chew 80 Mg Tablet PO 80 mg 0900,1300,1800,2100 ROSA Administration Sodium Chloride 10 ml 06/05/20 22:38 06/09/20 09:02 Sodium Chloride Flush 0.9% 10 Ml Syringe IVP 10 ml PRN PRN Administration NEEDED PER PROVIDER ORDERS Sodium Chloride 10 ml 06/06/20 01:00 06/12/20 08:59 Sodium Chloride Flush 0.9% 10 Ml Syringe IVP 10 ml 0100,0900,1700 ROSA Administration - Lab Result Fish Bone Diagrams: 06/12/20 04:47 06/12/20 04:47 Subjective - Subjective Patient Reports: Feeling Better, Resting Comfortably Objective Vital Signs: Vital Signs - 24 hr 06/11/20 06/11/20 06/11/20 20:10 20:50 23:59 Temperature 37.1 C 37 C Heart Rate 81 Heart Rate [ 81 69 Brachial] Respiratory 18 18 18 Rate Blood Pressure 133/67 H [Left Brachial artery] Blood Pressure 142/81 H [Right Brachial artery] O2 Saturation 93 97 06/12/20 06/12/20 07:37 15:31 Temperature 36.5 C 37.2 C Heart Rate Heart Rate [ 80 93 Brachial] Respiratory 16 17 Rate Blood Pressure [Left Brachial artery] Blood Pressure 152/74 H 142/71 H [Right Brachial artery] O2 Saturation 95 94 Oxygen O2 Source Nasal cannula I&O (Last 24 Hrs): Intake and Output Totals x24h 06/10/20 06/11/20 06/12/20 23:59 23:59 23:59 Intake Total 1570 2300 1340 Balance 1570 2300 1340 General: Alert HEENT: Mucous membr. moist/pink Neck: Supple Neuro: Alert, Non Focal Cardiovascular: No murmurs Respiratory: No respiratory distress, Breath sounds nml (anteriorly) Abdomen: Normal bowel sounds, Soft Extremities: No edema, No tenderness/swelling - Results Results: Laboratory Results WBC 11.7 x10^3/uL (4.8-10.8) H 06/12/20 04:47 RBC 4.65 10^6/uL (4.70-6.10) L 06/12/20 04:47 Hgb 13.1 g/dL (14.0-18.0) L 06/12/20 04:47 Hct 40.3 % (42.0-52.0) L 06/12/20 04:47 MCV 86.7 fL (80.0-94.0) 06/12/20 04:47 MCH 28.2 pg (27.0-31.0) 06/12/20 04:47 MCHC 32.5 g/dL (32.0-36.0) 06/12/20 04:47 RDW 13.0 % (12.0-15.0) 06/12/20 04:47 Plt Count 292 10^3/uL (130-450) 06/12/20 04:47 MPV 9.0 fL (7.4-11.4) 06/12/20 04:47 Neut # (Auto) 9.5 10^3/uL (1.5-6.6) H 06/12/20 04:47 Lymph # (Auto) 1.1 10^3/uL (1.5-3.5) L 06/12/20 04:47 [place] # (Auto) 0.9 10^3/uL (0.0-1.0) 06/12/20 04:47 Eos # (Auto) 0.0 10^3/uL (0.0-0.7) 06/12/20 04:47 Baso # (Auto) 0.0 10^3/uL (0.0-0.1) 06/12/20 04:47 Absolute Nucleated RBC 0.00 x10^3/uL 06/12/20 04:47 Nucleated RBC % 0.0 /100WBC 06/12/20 04:47 Sodium 138 mmol/L (135-145) 06/12/20 04:47 Potassium 4.1 mmol/L (3.5-5.0) 06/12/20 04:47 Chloride 99 mmol/L (101-111) L 06/12/20 04:47 Carbon Dioxide 29 mmol/L (21-32) 06/12/20 04:47 Anion Gap 10.0 (6-13) 06/12/20 04:47 BUN 24 mg/dL (6-20) H 06/12/20 04:47 Creatinine 0.7 mg/dL (0.6-1.2) 06/12/20 04:47 Estimated GFR (MDRD) 109 (>89) 06/12/20 04:47 Glucose 116 mg/dL (70-100) H 06/12/20 04:47 POC Whole Bld Glucose 376 mg/dL (70 - 100) H 06/12/20 16:38 Estimat Average Glucose 223 mg/dL (70-100) H 06/06/20 05:08 Hemoglobin A1c % 9.4 % (4.27-6.07) H 06/06/20 05:08 Calcium 8.8 mg/dL (8.5-10.3) 06/12/20 04:47 Total Bilirubin 0.9 mg/dL (0.2-1.0) 06/05/20 19:16 AST 32 IU/L (10-42) 06/05/20 19:16 ALT 28 IU/L (10-60) 06/05/20 19:16 Alkaline Phosphatase 86 IU/L (42-121) 06/05/20 19:16 Total Protein 7.0 g/dL (6.7-8.2) 06/05/20 19:16 Albumin 3.5 g/dL (3.2-5.5) 06/05/20 19:16 Globulin 3.5 g/dL (2.1-4.2) 06/05/20 19:16 Albumin/Globulin Ratio 1.0 (1.0-2.2) 06/05/20 19:16 Lipase 32 U/L (22-51) 06/05/20 19:16 Urine Color YELLOW 06/05/20 20:30 Urine Clarity HAZY (CLEAR) 06/05/20 20:30 Urine pH 5.5 PH (5.0-7.5) 06/05/20 20:30 Ur Specific [place] 1.010 (1.002-1.030) 06/05/20 20:30 Urine Protein 30 mg/dL (NEGATIVE) H 06/05/20 20:30 Urine Glucose (UA) 250 mg/dL (NEGATIVE) H 06/05/20 20:30 Urine Ketones 15 mg/dL (NEGATIVE) H 06/05/20 20:30 Urine Occult Blood SMALL (NEGATIVE) H 06/05/20 20:30 Urine Nitrite NEGATIVE (NEGATIVE) 06/05/20 20:30 Urine Bilirubin NEGATIVE (NEGATIVE) 06/05/20 20:30 Urine Urobilinogen 0.2 (NORMAL) E.U./dL (NORMAL) 06/05/20 20:30 Ur Leukocyte Esterase NEGATIVE (NEGATIVE) 06/05/20 20:30 Urine RBC 0-5 /HPF (0-5) 06/05/20 20:30 Urine WBC 0-3 /HPF (0-3) 06/05/20 20:30 Ur Squamous Epith Cells RARE Squamous (<= Few) 06/05/20 20:30 Urine Bacteria Rare /HPF (None Seen) 06/05/20 20:30 Urine Mucus Few Strands 06/05/20 20:30 Ur Microscopic Review INDICATED 06/05/20 20:30 Urine Culture Comments NOT INDICATED 06/05/20 20:30 Nasal Adenovirus (PCR) NOT DETECTED 06/05/20 20:59 Nasal B. parapertussis DNA (PCR) NOT DETECTED 06/05/20 20:59 Nasal Coronavir 229E PCR NOT DETECTED 06/05/20 20:59 Nasal Coronavir HKU1 PCR NOT DETECTED 06/05/20 20:59 Nasal Coronavir NL63 PCR NOT DETECTED 06/05/20 20:59 Nasal Coronavir OC43 PCR NOT DETECTED 06/05/20 20:59 Nasal Enterovir/Rhinovir PCR NOT DETECTED 06/05/20 20:59 Nasal Influenza B PCR NOT DETECTED 06/05/20 20:59 Nasal Influenza A PCR NOT DETECTED 06/05/20 20:59 Nasal Parainfluen 1 PCR NOT DETECTED 06/05/20 20:59 Nasal Parainfluen 2 PCR NOT DETECTED 06/05/20 20:59 Nasal Parainfluen 3 PCR NOT DETECTED 06/05/20 20:59 Nasal Parainfluen 4 PCR NOT DETECTED 06/05/20 20:59 Nasal RSV (PCR) NOT DETECTED 06/05/20 20:59 Nasal B.pertussis DNA PCR NOT DETECTED 06/05/20 20:59 Nasal C.pneumoniae (PCR) NOT DETECTED 06/05/20 20:59 Dre Human Metapneumo PCR NOT DETECTED 06/05/20 20:59 Nasal M.pneumoniae (PCR) NOT DETECTED 06/05/20 20:59 Nasal SARS-CoV-2 (PCR) DETECTED A 06/05/20 20:59
[2020-06-12] MEDS: cefTRIAXone 2 GM in SODIUM CHLORIDE 0.9% MINIBAG 100 ML IV SCH (17:08)
[2020-06-12] MEDS ORDERED: SODIUM CHLORIDE 0.9% 500 ML IV ONE (17:11)
[2020-06-12] MEDS ORDERED: oxyCODONE 5 MG TABLET PO PRN (17:12)
[2020-06-12] MEDS: SODIUM CHLORIDE 0.9% 1,000 ML IV SCH (18:23)
[2020-06-12] MEDS: AZITHROMYCIN INJ 500 MG in SODIUM CHLORIDE 0.9% 250 ML IV SCH (21:53)
[2020-06-13] MEDS: SODIUM CHLORIDE FLUSH 0.9% 10 ML SYRINGE IVP SCH ×3 (00:46→17:20)
[2020-06-13] MEDS: SODIUM CHLORIDE 0.9% 1,000 ML IV SCH (01:25)
[2020-06-13 05:04] LABS: BASOPHILS % (AUTO) 0.1 %; EOSINOPHILS % (AUTO) 0.3 %; HGB - HEMOGLOBIN 13.4 g/dL (14.0-18.0); LYMPHOCYTES # (AUTO) 1.6 10^3/uL (1.5-3.5); LYMPHOCYTES % (AUTO) 11.7 %; MEAN CORPUSCULAR HGB CONC 32.1 g/dL (32.0-36.0); MEAN CORPUSCULAR VOLUME 87.4 fL (80.0-94.0); MEAN PLATELET VOLUME 8.8 fL (7.4-11.4); MONOCYTES # (AUTO) 1.4 10^3/uL (0.0-1.0); MONOCYTES % (AUTO) 10.3 %; NEUTROPHILS # (AUTO) 10.5 10^3/uL (1.5-6.6); NEUTROPHILS % (AUTO) 75.9 %; PLT - PLATELET COUNT 321 10^3/uL (130-450); RED BLOOD COUNT 4.78 10^6/uL (4.70-6.10); WHITE BLOOD COUNT 13.9 x10^3/uL (4.8-10.8)
[2020-06-13 05:19] LABS: CALCIUM 8.6 mg/dL (8.5-10.3); CREATININE 0.8 mg/dL (0.6-1.2); MAGNESIUM 2.3 mg/dL (1.7-2.8)
[2020-06-13] MEDS: INSULIN ASPART 300 UNIT/3 ML PEN SUBQ SCH ×5 (09:19→21:55)
[2020-06-13] MEDS: ENOXAPARIN 40 MG/0.4 ML SYRINGE SUBQ SCH (09:20)
[2020-06-13] MEDS: DEXAMETHASONE 4 MG/ML VIAL IVP SCH (09:20)
[2020-06-13] MEDS: DOCUSATE SODIUM 250 MG CAPSULE PO SCH (09:21)
[2020-06-13] MEDS: SIMETHICONE CHEW 80 MG TABLET PO SCH ×4 (09:21→21:56)
[2020-06-13] MEDS: SACCHAROMYCES BOULARDII 250 MG CAPSULE PO SCH ×2 (09:21→17:20)
[2020-06-13] MEDS: SENNA 8.6 MG TABLET PO SCH (09:21)
[2020-06-13] MEDS: polyethylene glycoL 3350 17 GM PACKET PO SCH (09:21)
[2020-06-13] MEDS: POTASSIUM CHLORIDE 20 MEQ TABLET PO SCH (09:21)
[2020-06-13] MEDS: INSULIN 70/30 HUMAN 300 UNIT/3 ML VIAL SUBQ SCH ×2 (10:59→21:55)
[2020-06-13] MEDS: ACETAMINOPHEN 325 MG TABLET PO PRN (10:59)
--- NOTE | 2020-06-13 11:21 | PROVIDER PROGRESS NOTE ---
Assessment/Plan - Problem List (1) Acute respiratory failure with hypoxia Assessment/Plan: The patient now requires 0.5 L O2 to maintain saturations up. He is slowly improving with his respiratory status. Continue to try to wean O2 down to room air. Possibly ready for discharge tomorrow. (2) Pneumonia due to COVID-19 virus Assessment/Plan: He is finished 5 days of remdesivir. He still is getting Decadron, he is on day 8 of a planned 9-day course. Continue with respiratory/infectious isolation (3) HCAP (healthcare-associated pneumonia) Assessment/Plan: Today he received the total Zithromax dose. He is finishing IV ceftriaxone. Putting him on empiric antibiotics for bacterial pneumonia has also helped his supplemental oxygen requirements. He is nearly present management with IV antibiotics Add Mucinex for pulmonary toilet. Cont supplemental oxygen as needed (4) Fall during current hospitalization Assessment/Plan: This occurred several days ago as he was walking back from the bathroom to his bed in his room. CT of the head was negative for any trauma. He was very orthostatic on that day, and has required IV fluids since then. Continues to check orthostatic vital signs (5) Orthostatic hypotension Assessment/Plan: He is no longer hypotensive with standing but still has a 20 mmHg drop when going from supine to standing. Continue with IV fluids at 60 cc an hour until he is not orthostatic. Monitor orthostatic vital signs (6) Hypertension Assessment/Plan: He was on BP meds at home. His supine blood pressure is now high at 159. We will slowly resume his BP meds for control (7) Type 2 diabetes mellitus Assessment/Plan: He is a brittle diabetic, goes from 60-300s. This has been worsened since he has been on Decadron. With his 70/30 insulin, 60 units in the a.m., 20 units in the p.m. We will stop the 5 units of NovoLog with meals because he drops excessively and continue with sliding scale insulin coverage with Accu-Cheks for monitoring (8) Frontal lobe dementia Assessment/Plan: As per history from his daughter. Cognitive eval was done here and he scored 22 out of 30, has mild dementia. He no longer drives. - Current Meds Current Meds: Current Medications Generic Name Dose Route Start Last Admin Trade Name Freq PRN Reason Stop Dose Admin Acetaminophen 650 mg 06/05/20 22:51 06/13/20 10:59 Acetaminophen 325 Mg Tablet PO 650 mg Q4HR PRN Administration Pain 1 to 4 Dexamethasone 6 mg 06/06/20 09:00 06/13/20 09:20 Dexamethasone 4 Mg/Ml Vial IVP 06/14/20 09:01 6 mg DAILY ROSA Administration Docusate Sodium 250 - 500 mg 06/07/20 21:00 06/13/20 09:21 Docusate Sodium 250 Mg Capsule PO 250 mg DAILY ROSA Administration Enoxaparin Sodium 40 mg 06/06/20 09:00 06/13/20 09:20 Enoxaparin 40 Mg/0.4 Ml Syringe SUBQ 40 mg DAILY COUNTS INCLUDE 234 BEDS AT THE [facility] Administration Ceftriaxone Sodium 2 gm/ 100 mls @ 200 mls/hr 06/12/20 17:00 06/12/20 17:53 Sodium Chloride IV 06/14/20 16:59 Infused Q24H [facility] Infusion Sodium Chloride 1,000 mls @ 60 mls/hr 06/12/20 18:00 06/13/20 01:25 Normal Saline 0.9% IV 60 mls/hr .[id number] ROSA Administration Insulin Aspart 2 - 10 unit 06/06/20 08:00 06/13/20 09:19 Insulin Aspart 300 Unit/3 Ml Pen SUBQ Not Given 0800,1200,1700,2100 COUNTS INCLUDE 234 BEDS AT THE [facility] Protocol Insulin Human Isoph/Insulin Regular 20 unit 06/10/20 21:00 06/12/20 21:53 Insulin 70/30 Human 300 Unit/3 Ml Vial SUBQ 20 unit QPM [facility] Administration Insulin Human Isoph/Insulin Regular 60 unit 06/11/20 09:00 06/13/20 10:59 Insulin 70/30 Human 300 Unit/3 Ml Vial SUBQ 60 unit DAILY [facility] Administration Polyethylene Glycol 17 gm 06/07/20 09:00 06/13/20 09:21 Polyethylene Glycol 3350 17 Gm Packet PO 17 gm DAILY [facility]A Administration Potassium Chloride 20 meq 06/08/20 08:00 06/13/20 09:21 Potassium Chloride 20 Meq Tablet PO 20 meq DAILYWM ROSA Administration Saccharomyces Boulardii 250 mg 06/11/20 17:00 06/13/20 09:21 Saccharomyces Boulardii 250 Mg Capsule PO 250 mg BIDWM COUNTS INCLUDE 234 BEDS AT THE [facility] Administration Senna 8.6 - 17.2 mg 06/07/20 21:00 06/13/20 09:21 Senna 8.6 Mg Tablet PO 8.6 mg DAILY [facility]A Administration Simethicone 80 mg 06/09/20 16:22 06/13/20 09:21 Simethicone Chew 80 Mg Tablet PO 80 mg 0900,1300,1800,2100 [facility] Administration Sodium Chloride 10 ml 06/05/20 22:38 06/09/20 09:02 Sodium Chloride Flush 0.9% 10 Ml Syringe IVP 10 ml PRN PRN Administration NEEDED PER PROVIDER ORDERS Sodium Chloride 10 ml 06/06/20 01:00 06/13/20 09:28 Sodium Chloride Flush 0.9% 10 Ml Syringe IVP Not Given 0100,0900,1700 ROSA - Lab Result Fish Bone Diagrams: 06/13/20 04:44 06/13/20 04:44 - Additional Planning My Orders: My Active Orders 06/12/20 17:12 oxyCODONE [Roxicodone] 5 mg PO Q8HR PRN 06/12/20 18:00 Sodium Chloride 0.9% [Normal Saline 0.9%] 1,000 ml IV 60 mls/hr Subjective - Subjective Patient Reports: Feeling Better, No Complaints Nursing Reports: Other (IV fell out) Objective Vital Signs: Vital Signs - 24 hr 06/12/20 06/12/20 06/13/20 15:31 20:05 01:20 Temperature 37.2 C 36.8 C Heart Rate 86 Heart Rate [ 93 72 Brachial] Respiratory 17 16 16 Rate Blood Pressure 163/74 H [Left Brachial artery] Blood Pressure 142/71 H [Right Brachial artery] O2 Saturation 94 97 06/13/20 06/13/20 06/13/20 08:21 09:35 09:36 Temperature 36.5 C Heart Rate Heart Rate [ 81 Brachial] Respiratory 20 Rate Blood Pressure [Left Brachial artery] Blood Pressure 159/78 H [Right Brachial artery] O2 Saturation 99 100 100 06/13/20 06/13/20 06/13/20 09:45 09:46 11:06 Temperature Heart Rate Heart Rate [ Brachial] Respiratory Rate Blood Pressure [Left Brachial artery] Blood Pressure [Right Brachial artery] O2 Saturation 88 L 94 97 Oxygen O2 Source Nasal cannula I&O (Last 24 Hrs): Intake and Output Totals x24h 06/11/20 06/12/20 06/13/20 23:59 23:59 23:59 Intake Total 2300 2890 862 Output Total 500 600 Balance 2300 2390 262 General: Alert ((per telemed visit)) HEENT: Atraumatic, Mucous membr. moist/pink Neck: Supple Neuro: Alert, Non Focal Cardiovascular: Regular rate Respiratory: No respiratory distress Abdomen: Soft Extremities: No edema - Results Results: Laboratory Results WBC 13.9 x10^3/uL (4.8-10.8) H 06/13/20 04:44 RBC 4.78 10^6/uL (4.70-6.10) 06/13/20 04:44 Hgb 13.4 g/dL (14.0-18.0) L 06/13/20 04:44 Hct 41.8 % (42.0-52.0) L 06/13/20 04:44 MCV 87.4 fL (80.0-94.0) 06/13/20 04:44 MCH 28.0 pg (27.0-31.0) 06/13/20 04:44 MCHC 32.1 g/dL (32.0-36.0) 06/13/20 04:44 RDW 13.0 % (12.0-15.0) 06/13/20 04:44 Plt Count 321 10^3/uL (130-450) 06/13/20 04:44 MPV 8.8 fL (7.4-11.4) 06/13/20 04:44 Neut # (Auto) 10.5 10^3/uL (1.5-6.6) H 06/13/20 04:44 Lymph # (Auto) 1.6 10^3/uL (1.5-3.5) 06/13/20 04:44 [place] # (Auto) 1.4 10^3/uL (0.0-1.0) H 06/13/20 04:44 Eos # (Auto) 0.0 10^3/uL (0.0-0.7) 06/13/20 04:44 Baso # (Auto) 0.0 10^3/uL (0.0-0.1) 06/13/20 04:44 Absolute Nucleated RBC 0.00 x10^3/uL 06/13/20 04:44 Nucleated RBC % 0.0 /100WBC 06/13/20 04:44 Sodium 136 mmol/L (135-145) 06/13/20 04:44 Potassium 3.9 mmol/L (3.5-5.0) 06/13/20 04:44 Chloride 100 mmol/L (101-111) L 06/13/20 04:44 Carbon Dioxide 26 mmol/L (21-32) 06/13/20 04:44 Anion Gap 10.0 (6-13) 06/13/20 04:44 BUN 24 mg/dL (6-20) H 06/13/20 04:44 Creatinine 0.8 mg/dL (0.6-1.2) 06/13/20 04:44 Estimated GFR (MDRD) 94 (>89) 06/13/20 04:44 Glucose 68 mg/dL (70-100) L 06/13/20 04:44 POC Whole Bld Glucose 98 mg/dL (70 - 100) 06/13/20 08:08 Estimat Average Glucose 223 mg/dL (70-100) H 06/06/20 05:08 Hemoglobin A1c % 9.4 % (4.27-6.07) H 06/06/20 05:08 Calcium 8.6 mg/dL (8.5-10.3) 06/13/20 04:44 Magnesium 2.3 mg/dL (1.7-2.8) 06/13/20 04:44 Total Bilirubin 0.9 mg/dL (0.2-1.0) 06/05/20 19:16 AST 32 IU/L (10-42) 06/05/20 19:16 ALT 28 IU/L (10-60) 06/05/20 19:16 Alkaline Phosphatase 86 IU/L (42-121) 06/05/20 19:16 Total Protein 7.0 g/dL (6.7-8.2) 06/05/20 19:16 Albumin 3.5 g/dL (3.2-5.5) 06/05/20 19:16 Globulin 3.5 g/dL (2.1-4.2) 06/05/20 19:16 Albumin/Globulin Ratio 1.0 (1.0-2.2) 06/05/20 19:16 Lipase 32 U/L (22-51) 06/05/20 19:16 Urine Color YELLOW 06/05/20 20:30 Urine Clarity HAZY (CLEAR) 06/05/20 20:30 Urine pH 5.5 PH (5.0-7.5) 06/05/20 20:30 Ur Specific [place] 1.010 (1.002-1.030) 06/05/20 20:30 Urine Protein 30 mg/dL (NEGATIVE) H 06/05/20 20:30 Urine Glucose (UA) 250 mg/dL (NEGATIVE) H 06/05/20 20:30 Urine Ketones 15 mg/dL (NEGATIVE) H 06/05/20 20:30 Urine Occult Blood SMALL (NEGATIVE) H 06/05/20 20:30 Urine Nitrite NEGATIVE (NEGATIVE) 06/05/20 20:30 Urine Bilirubin NEGATIVE (NEGATIVE) 06/05/20 20:30 Urine Urobilinogen 0.2 (NORMAL) E.U./dL (NORMAL) 06/05/20 20:30 Ur Leukocyte Esterase NEGATIVE (NEGATIVE) 06/05/20 20:30 Urine RBC 0-5 /HPF (0-5) 06/05/20 20:30 Urine WBC 0-3 /HPF (0-3) 06/05/20 20:30 Ur Squamous Epith Cells RARE Squamous (<= Few) 06/05/20 20:30 Urine Bacteria Rare /HPF (None Seen) 06/05/20 20:30 Urine Mucus Few Strands 06/05/20 20:30 Ur Microscopic Review INDICATED 06/05/20 20:30 Urine Culture Comments NOT INDICATED 06/05/20 20:30 Nasal Adenovirus (PCR) NOT DETECTED 06/05/20 20:59 Nasal B. parapertussis DNA (PCR) NOT DETECTED 06/05/20 20:59 Nasal Coronavir 229E PCR NOT DETECTED 06/05/20 20:59 Nasal Coronavir HKU1 PCR NOT DETECTED 06/05/20 20:59 Nasal Coronavir NL63 PCR NOT DETECTED 06/05/20 20:59 Nasal Coronavir OC43 PCR NOT DETECTED 06/05/20 20:59 Nasal Enterovir/Rhinovir PCR NOT DETECTED 06/05/20 20:59 Nasal Influenza B PCR NOT DETECTED 06/05/20 20:59 Nasal Influenza A PCR NOT DETECTED 06/05/20 20:59 Nasal Parainfluen 1 PCR NOT DETECTED 06/05/20 20:59 Nasal Parainfluen 2 PCR NOT DETECTED 06/05/20 20:59 Nasal Parainfluen 3 PCR NOT DETECTED 06/05/20 20:59 Nasal Parainfluen 4 PCR NOT DETECTED 06/05/20 20:59 Nasal RSV (PCR) NOT DETECTED 06/05/20 20:59 Nasal B.pertussis DNA PCR NOT DETECTED 06/05/20 20:59 Nasal C.pneumoniae (PCR) NOT DETECTED 06/05/20 20:59 Dre Human Metapneumo PCR NOT DETECTED 06/05/20 20:59 Nasal M.pneumoniae (PCR) NOT DETECTED 06/05/20 20:59 Nasal SARS-CoV-2 (PCR) DETECTED A 06/05/20 20:59
[2020-06-13] MEDS: cefTRIAXone 2 GM in SODIUM CHLORIDE 0.9% MINIBAG 100 ML IV SCH (17:55)
[2020-06-13] MEDS: guaiFENesin 600 MG TABLET PO SCH (21:54)
[2020-06-14 05:55] LABS: BASOPHILS % (AUTO) 0.1 %; EOSINOPHILS # (AUTO) 0.1 10^3/uL (0.0-0.7); EOSINOPHILS % (AUTO) 0.6 %; HGB - HEMOGLOBIN 13.7 g/dL (14.0-18.0); LYMPHOCYTES # (AUTO) 1.4 10^3/uL (1.5-3.5); MEAN CORPUSCULAR HEMOGLOBIN 28.7 pg (27.0-31.0); MEAN CORPUSCULAR HGB CONC 33.2 g/dL (32.0-36.0); MEAN CORPUSCULAR VOLUME 86.6 fL (80.0-94.0); MEAN PLATELET VOLUME 8.3 fL (7.4-11.4); MONOCYTES # (AUTO) 1.4 10^3/uL (0.0-1.0); MONOCYTES % (AUTO) 11.2 %; NEUTROPHILS # (AUTO) 9.2 10^3/uL (1.5-6.6); NEUTROPHILS % (AUTO) 74.6 %; PLT - PLATELET COUNT 301 10^3/uL (130-450); RED BLOOD COUNT 4.77 10^6/uL (4.70-6.10); RED CELL DISTRIBUTION WIDTH 12.9 % (12.0-15.0); WHITE BLOOD COUNT 12.3 x10^3/uL (4.8-10.8)
[2020-06-14 06:15] LABS: CALCIUM 8.5 mg/dL (8.5-10.3)
[2020-06-14 08:12] VITALS: BP 134/67
[2020-06-14] MEDS: INSULIN ASPART 300 UNIT/3 ML PEN SUBQ SCH ×2 (08:52→12:51)
[2020-06-14] MEDS: guaiFENesin 600 MG TABLET PO SCH (08:55)
[2020-06-14] MEDS: SACCHAROMYCES BOULARDII 250 MG CAPSULE PO SCH (08:55)
[2020-06-14] MEDS: SENNA 8.6 MG TABLET PO SCH (08:55)
[2020-06-14] MEDS: POTASSIUM CHLORIDE 20 MEQ TABLET PO SCH (08:55)
[2020-06-14] MEDS: SIMETHICONE CHEW 80 MG TABLET PO SCH ×2 (08:55→12:54)
[2020-06-14] MEDS: ENOXAPARIN 40 MG/0.4 ML SYRINGE SUBQ SCH (08:56)
[2020-06-14] MEDS: polyethylene glycoL 3350 17 GM PACKET PO SCH (08:58)
[2020-06-14] MEDS: DOCUSATE SODIUM 250 MG CAPSULE PO SCH (08:58)
[2020-06-14] MEDS: INSULIN 70/30 HUMAN 300 UNIT/3 ML VIAL SUBQ SCH (09:02)
[2020-06-14] MEDS: ACETAMINOPHEN 325 MG TABLET PO PRN (09:04)
--- NOTE | 2020-06-14 09:04 | Discharge Plan ---
Discharge Plan Problem Reviewed?: Yes Disposition: Home, Self Care Condition: Stable Prescriptions: Insulin 70/30 Human [Humulin 70-30 Vial] 20 unit SUBQ QPM #1 vial Insulin 70/30 Human [Humulin 70-30 Vial] 40 unit SUBQ DAILY #1 vial Diet: Diabetic Activity Restrictions: Activity as Tolerated Shower Restrictions: No Health Concerns: You were hospitalized for treating COVID pneumonia and a possible bacterial pneumonia. You got Remdesivir, steroids and antibiotics and those treatments are finished. You also needed supplemental oxygen, that has now been stopped since your oxygen levels have stabilized. We found that you were on excessive doses of insulin, which was dropping your blood glucose too low. Please adjust your insulin dosing as listed in the this current medication list. Resume all your other pre-hospital medications. The [place] state guidelines indicate that you should stay in isolation for 4 more days (through Jun 17) because of having COVID. Plan of Treatment: As above. Care Goals: Improvement in symptoms and stabilization are the goals. Assessment: The patient understands. Written reminders were provided for the patient to take home. Additional Instructions or Follow Up instructions: You did have a cyst on your left kidney, this will need to be follow-up by your primary care physician for a nonurgent ultrasound test. Please see your Provider at [facility] in the next few weeks. No Smoking: If you smoke, Please STOP! Call for help.
--- NOTE | 2020-06-14 09:13 | DISCHARGE SUMMARY ---
Discharge Summary Admit Date: 06/06/20 Discharge Date: 06/14/20 Discharging Provider: Dr Blanca Lopes Primary Care Provider: [facility] Code Status: Attempt Resuscitation Condition at Discharge: Stable Discharge Disposition: 01 Home, Self Care - HPI History of Present Illness: From the admission H&P of Dr Christie Kilgore: 79-year-old [place] male presented to our emergency room with abdominal pain. He has a history of colon cancer many years ago that was resected. The abdominal pain is off to the right side of his abdomen and central. Has been going on for a few days but today it was really bad. No emesis. No diarrhea. No change in bowel movements. No blood in stool. He denies fever, chills. In the emergency room his temperature was 36.1. Heart rate 91. Respirations 17. Blood pressure 117/65 and he was 96% saturated on room air. He was alert and oriented. Had mild central and right-sided abdominal tenderness without surgical signs. No peritoneal findings. Normal bowel sounds. White cell count was 5.2. Hemoglobin 13.2. Sodium was mildly decreased at 132. Glucose was elevated at 276 in a gentleman who is a diabetic. For evaluation of his abdominal pain he had a CT of the abdomen and pelvis. The CT of the abdomen and pelvis was negative for any abdominal pathology but he had groundglass opacities in the lung bases concerning for atypical pneumonia. COVID-19 was then done and he is positive. Of note, this patient is currently asymptomatic for COVID-19 pneumonia. He was being considered for outpatient treatment of with bamlanivimab and to be sent home. However while in the emergency room he dropped his O2 sats to 88% on room air. He will now be admitted for Covid pneumonia. On review of systems he admits to having a cough now for 2 weeks. He has had a little bit of fever and chills but no sore throat. His appetite has been okay, he can smell things okay. His is been sick with him and she was tested for Covid and she was negative. Right now, while he is coughing, he feels that his main complaint is his left-sided abdominal pain not the Covid pneumonia. - HOSPITAL COURSE Hospital Course: (1) Acute respiratory failure with hypoxia He was stated on supplemental O2 to maintain saturations ov er 90%. His O2 needs increased before eventually improving, and by the evening before discharge, he was saturating well on room air. (2) Pneumonia due to COVID-19 virus He received 5 days of Remdesivir plus Decadron. At this point, he had worsened desaturations, and a CXR showed worsened pneumonia, thus his Decadron was continued, and he got a 9-day course. We continued with respiratory/infectious isolation and that was advised for 3 more days after discharge (a 14 day plan). The complaint of abdominal pain resolved by day 2. (3) HCAP (healthcare-associated pneumonia) When his cough worsened and O2 needs increased, a CXR was done and showed a worsening infiltrate. He was started on empiric Zithromax and IV ceftriaxone. Putting him on empiric antibiotics for a possible bacterial pneumonia also helped his supplemental oxygen requirements. He got Mucinex for pulmonary toilet. By the evening before discharge, he was saturating well on room air. (4) Fall during current hospitalization This occurred on 06/10/20, as he was walking back from the bathroom to his bed in his room. CT of the head was done and was negative for any trauma. He was very orthostatic on that day, and required IV fluids until the day before discharge, and his BP meds were on hold. (5) Orthostatic hypotension He was found to be hypotensive with standing, on the day of his fall. He continued to have a 20 mmHg drop in BP for several days, necessitating iv fluids. (6) Hypertension He was on his home BP meds except for several days when he was orthostatic. (7) Type 2 diabetes mellitus His A1c was 9.4, indicating poor control. Despite that, when we resumed his Insulin 70/30 at the purported dose of 52 U sq bid, he had several mornings of very low glu of 60. Daytime glu became 200-300 on Decadron. He is a brittle diabetic, goes from 60s to 300s. As such, his dosing was adjusted to 70/30 Insulin using 60 units in the a.m., only 20 units in the p.m., plus sliding scale insulin coverage with Accu-Cheks for monitoring. At discharge, he was finished with steroids, therefore his doses were recommended to be 70/30 Insulin using 40 U in the morning and 20 U in the evening. He was also to resume Alogliptin. (8) Frontal lobe dementia As per history obtained from his daughter. A cognitive evaluation was done here and he scored 22 out of 30, consistent with mild dementia. He no longer drives. 9) Hypokalemia This was replaced. - ALLERGIES Allergies/Adverse Reactions: Allergies Allergy/AdvReac Type Severity Reaction Status Date / Time metformin AdvReac Cramps Verified 06/05/20 18:05 morphine AdvReac Nausea Verified 06/05/20 18:05 - MEDICATIONS Home Medications: Ambulatory Orders Medication Instructions Recorded Confirmed Aspirin 81 mg PO DAILY 03/27/14 06/06/20 Lisinopril 20 mg PO DAILY 03/27/14 06/06/20 Omeprazole [PriLOSEC] 40 mg PO DAILY 03/27/14 06/06/20 Alogliptin Benzoate [Alogliptin] 25 mg PO DAILY 06/07/20 06/07/20 Atorvastatin Calcium [Lipitor] 80 mg PO DAILY 06/07/20 06/07/20 Budesonide/Formoterol Fumarate 2 puffs PO DAILY 06/07/20 06/07/20 [Symbicort 160-4.5 Mcg Inhaler] Cholecalciferol [Vitamin D3] 25 mcg PO DAILY 06/07/20 06/07/20 Multivit with Minerals/Lutein 1 tab PO DAILY 06/07/20 06/07/20 [Theratrum Complete 50 Plus Tab] Insulin 70/30 Human [Humulin 70-30 20 unit SUBQ QPM #1 vial 06/14/20 Vial] Insulin 70/30 Human [Humulin 70-30 40 unit SUBQ DAILY #1 vial 06/14/20 Vial] - PHYSICAL EXAM AT DISCHARGE General Appearance: positive: No acute distress, Alert Eyes Bilateral: positive: Normal inspection, EOMI ENT: positive: ENT inspection nml, No signs of dehydration Neck: positive: Nml inspection, No JVD Respiratory: positive: No respiratory distress, Breath sounds nml Cardiovascular: positive: Regular rate & rhythm, No murmur Abdomen: positive: Non-tender, Nml bowel sounds Skin: positive: Warm, Dry Extremities: positive: Non-tender, No pedal edema Neurologic/Psychiatric: positive: Oriented x3 (Memory poor.) - LABS Result Diagrams: 06/14/20 05:41 06/14/20 05:41 - DIAGNOSTIC IMAGING Diagnostic Imaging Results: Final report reviewed - FOLLOW UP Follow Up: See PCP in routine follow-up. - TIME SPENT Time Spent in Discharge (Minutes): 60
== END 2020-06-14 15:40 | disposition home or self-care (01) | DRG 177 ==
LOC: ED 17:44 → MS2 22:38
PROVIDERS: ADMIT Specialist; ATTEND Internal Medicine
DX: U07.1 COVID-19 (principal); R09.02 Hypoxemia; R10.84 Generalized abdominal pain; J96.01 Acute respiratory failure with hypoxia; J12.82 Pneumonia due to coronavirus disease 2019; E11.9 Type 2 diabetes mellitus without complications; J15.9 Unspecified bacterial pneumonia; N28.1 Cyst of kidney, acquired; Y95 Nosocomial condition; J45.909 Unspecified asthma, uncomplicated; I95.1 Orthostatic hypotension; G31.09 Other frontotemporal neurocognitive disorder; F02.80 Dementia in other diseases classified elsewhere, unspecified severity, without behavioral disturbance, psychotic disturbance, mood disturbance, and anxiety; E87.6 Hypokalemia; I48.91 Unspecified atrial fibrillation; I10 Essential (primary) hypertension; E11.319 Type 2 diabetes mellitus with unspecified diabetic retinopathy without macular edema; K59.09 Other constipation; M19.90 Unspecified osteoarthritis, unspecified site; H91.90 Unspecified hearing loss, unspecified ear; Z79.82 Long term (current) use of aspirin; Z79.51 Long term (current) use of inhaled steroids; Z79.4 Long term (current) use of insulin; Z79.52 Long term (current) use of systemic steroids; Z79.891 Long term (current) use of opiate analgesic; Z85.038 Personal history of other malignant neoplasm of large intestine; Z91.81 History of falling
CPT/HCPCS: 36415; 70450; 71045; 74177; 80048; 80053; 81001; 83036; 83690; 83735; 85025; 87631; 94640; 96374; 96375; 97165; 99285; A9270; C9399; J1170; J1650; J1815; J7120; Q9967; 0202U; 81003; 87086

== ENCOUNTER 2020-12-10 18:33 | Emergency (ER) | payer OTHER, MEDICARE, BC ==
[2020-12-10 19:05] VITALS: BP 138/67
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
[2020-12-10] MEDS ORDERED: IBUPROFEN 400 MG TABLET PO STA (20:29)
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
== END 2020-12-10 22:42 | disposition home or self-care (01) ==
LOC: ED 18:33
DX: S43.402A Unspecified sprain of left shoulder joint, initial encounter (principal); S20.212A Contusion of left front wall of thorax, initial encounter; V49.9XXA Car occupant (driver) (passenger) injured in unspecified traffic accident, initial encounter; I10 Essential (primary) hypertension; I48.91 Unspecified atrial fibrillation; E11.9 Type 2 diabetes mellitus without complications; Z79.4 Long term (current) use of insulin; Z79.82 Long term (current) use of aspirin
CPT/HCPCS: 71046; 73030; 99282; 99284; A9270

== ENCOUNTER 2022-09-05 13:04 | Emergency (ER) | payer MEDICARE, BC, OTHER ==
[2022-09-05 13:29] VITALS: BP 134/60
--- NOTE | 2022-09-05 13:58 | ED Physician Documentation ---
History of Present Illness - Stated complaint Stated Complaint: LT CALF/LEG PX - Chief complaint Chief Complaint: Ext Problem - History obtained from History obtained from: Patient - Additonal information Additional information: 81-year-old gentleman with history of hypertension diabetes presents for evaluation of left leg pain that been going on for about 4 days. There was no injury. Pain is focused in the calf but radiates up the leg. It is worse with walking. He denies chest pain or trouble breathing with this. PD PAST MEDICAL HISTORY - Past Medical History Cardiovascular: Hypertension, Atrial fibrillation Respiratory: Asthma Neuro: Dementia Endocrine/Autoimmune: Type 2 diabetes GI: Chronic constipation, Other : Other HEENT: None Psych: None Musculoskeletal: Osteoarthritis Derm: None - Past Surgical History Past Surgical History: Yes General: Cholecystectomy, Bowel surgery HEENT: Cataracts, Other - Present Medications Home Medications: Ambulatory Orders Medication Instructions Recorded Confirmed Aspirin 81 mg PO DAILY 03/27/14 06/06/20 Lisinopril 20 mg PO DAILY 03/27/14 06/06/20 Omeprazole [PriLOSEC] 40 mg PO DAILY 03/27/14 06/06/20 Alogliptin Benzoate [Alogliptin] 25 mg PO DAILY 06/07/20 06/07/20 Atorvastatin Calcium [Lipitor] 80 mg PO DAILY 06/07/20 06/07/20 Budesonide/Formoterol Fumarate 2 puffs PO DAILY 06/07/20 06/07/20 [Symbicort 160-4.5 Mcg Inhaler] Cholecalciferol [Vitamin D3] 25 mcg PO DAILY 06/07/20 06/07/20 Multivit with Minerals/Lutein 1 tab PO DAILY 06/07/20 06/07/20 [Theratrum Complete 50 Plus Tab] Insulin 70/30 Human [Humulin 70-30 20 unit SUBQ QPM #1 vial 06/14/20 Vial] Insulin 70/30 Human [Humulin 70-30 40 unit SUBQ DAILY #1 vial 06/14/20 Vial] Meloxicam [Mobic] 7.5 mg PO BID 10 Days #20 tablet 09/05/22 - Allergies Allergies/Adverse Reactions: Allergies Allergy/AdvReac Type Severity Reaction Status Date / Time metformin AdvReac Cramps Verified 09/05/22 13:30 morphine AdvReac Nausea Verified 09/05/22 13:30 - Social History Does the pt smoke?: No Smoking Status: Never smoker Does the pt drink ETOH?: No Does the pt have substance abuse?: No - Immunizations Immunizations are current?: Yes - POLST Patient has POLST: No POLST Status: Full Code PD ED PE NORMAL - Vitals Vital signs reviewed: Yes - General General: Alert and oriented X 3, No acute distress - Back Back: No CVA TTP, No spinal TTP - Derm Derm: Normal color, Warm and dry - Extremities Extremities: Other (Mild tenderness of the left calf without obvious swelling or asymmetry. Normal pedal pulses and the foot is warm and well-perfused.) - Neuro Neuro: Alert and oriented X 3, Normal speech Results - Vitals Vitals: Vital Signs - 24 hr 09/05/22 13:27 Temperature 36.3 C L Heart Rate 89 Respiratory 16 Rate Blood Pressure 134/60 H O2 Saturation 100 Oxygen O2 Source Room air PD Medical Decision Making - ED course ED course: 81-year-old gentleman with left calf and leg pain. The radiation and location actually could be consistent with sciatica. DVT is another consideration but an ultrasound was done for this and negative. Departure - Departure Disposition: 01 Home, Self Care Clinical Impression: Pain of lower extremity Qualifiers: Laterality: left Qualified Code(s): M79.605 - Pain in left leg Condition: Good Record reviewed to determine appropriate education?: Yes Instructions: ED Sciatica Prescriptions: Meloxicam [Mobic] 7.5 mg PO BID 10 Days #20 tablet Comments: As discussed, I believe that with the location of your pain you probably have sciatica. If its not better by the end of the week follow-up with your doctor early next week for recheck. Return if worse.
--- NOTE | 2022-09-05 16:30 | Ultrasound Report ---
PROCEDURE: Duplex Ext Veins Left INDICATIONS: calf pain TECHNIQUE: Real-time imaging, as well as color and pulse Doppler interrogation, were performed of the lower extr emity deep veins from the inguinal ligament to the popliteal fossa. COMPARISON: None. FINDINGS: The deep veins are normally compressible, and free of intraluminal thrombus. Color and pu lse Doppler demonstrate normal phasic intraluminal flow. There is normal augmentation response to di stal compression maneuver. IMPRESSION: 1. No DVT in the left lower extremity. 2. Preliminary results given by the jewel bearing turner to the ordering provider immediately following the st udy. Reviewed by: Elysia Duran MD on 09/05/2022 4:29 PM PDT Approved by: Elysia Duran MD on 09/05/2022 4:29 PM PDT Station ID: [id number]
== END 2022-09-05 15:33 | disposition home or self-care (01) ==
LOC: ED 13:04
DX: M79.605 Pain in left leg (principal)
CPT/HCPCS: 99283; 99284

== ENCOUNTER 2023-11-05 08:00 | Outpatient (CLI) | payer MEDICARE, BC, OTHER | END 2023-11-05 23:59 | disposition home or self-care (01) | LOC: LAB.N 08:00 | PROVIDERS: ATTEND Physician Assistant Medical | DX: J06.9 Acute upper respiratory infection, unspecified (principal) ==